=== PATIENT | female | born 1960 | race Caucasian/White ===

== ENCOUNTER 2023-04-11 11:43 | Outpatient (CLI) | payer MEDICARE, MEDICAID, SELFPAY ==
[2023-04-11 18:51] LABS: Hematocrit 45.9 % (37.0-47.0); Hemoglobin 14.8 g/dL (12.0-15.0); Mean Corpuscular HGB Conc 32.2 g/dl (32-36); Mean Corpuscular Hemoglobin 30.3 pg (26-34); Mean Corpuscular Volume 94.1 fl (80-100); Mean Platelet Volume 10.4 fl (7.4-10.4); Platelet Count Result 257 k/mm3 (150-375); Red Blood Count 4.88 M/mm3 (4.2-5.4); Red Cell Distribution Width 13.6 % (11.5-14.5); White Blood Count 10.4 K/mm3 (4.5-10.0)
[2023-04-11 19:39] LABS: Alanine Aminotransferase 41 U/L (6-35); Albumin Level 4.4 g/dL (3.5-5.1); Alkaline Phosphatase 119 U/L (38-126); Anion Gap 10 mmol/L (8-16); Aspartate Amino Transferase 57 U/L (14-36); Bilirubin,Total 0.5 mg/dL (0.2-1.3); Blood Urea Nitrogen 16 mg/dL (7-17); Calcium 9.6 mg/dL (8.4-10.2); Carbon Dioxide 23 mmol/L (22-30); Chloride 104 mmol/L (98-107); Cholesterol 268 mg/dL (0-200); Estimated Glomerular Filt Rate > 60; Glucose 121 mg/dL (65-110); HDL Direct 49 mg/dL; Potassium 4.6 mmol/L (3.4-5.0); Sodium 137 mmol/L (137-145); Triglycerides 290 mg/dL (<150)
[2023-04-11 19:49] LABS: LDL Cholesterol Direct 174 mg/dL
[2023-04-11 20:01] LABS: Vitamin D 25 Hydroxy 17.4 ng/mL
== END 2023-04-11 11:44 | disposition home or self-care (01) ==
PROVIDERS: PCP Family Medicine; Visit Provider Family Medicine
DX: J44.9 Chronic obstructive pulmonary disease, unspecified (principal); I50.9 Heart failure, unspecified; K21.9 Gastro-esophageal reflux disease without esophagitis; Z86.718 Personal history of other venous thrombosis and embolism; C80.1 Malignant (primary) neoplasm, unspecified; M19.90 Unspecified osteoarthritis, unspecified site; F41.9 Anxiety disorder, unspecified; Z79.899 Other long term (current) drug therapy
CPT/HCPCS: 36415; 80053; 80061; 82306; 82607; 84443; 85027

== ENCOUNTER 2023-05-03 12:23 | Outpatient (CLI) | payer MEDICARE, MEDICAID, SELFPAY ==
[2023-05-03 21:44] LABS: Hemoglobin A1C 6.8 % (<5.7)
== END 2023-05-03 12:24 | disposition home or self-care (01) ==
LOC: ANHBWCLAB 12:25
PROVIDERS: PCP Nurse Practitioner Adult Health; Visit Provider Family Medicine
DX: R73.9 Hyperglycemia, unspecified (principal); R73.09 Other abnormal glucose; R74.8 Abnormal levels of other serum enzymes
CPT/HCPCS: 36415; 83036

== ENCOUNTER 2023-10-17 11:01 | Outpatient (CLI) | payer MEDICARE, MEDICAID, SELFPAY ==
--- NOTE | ~2023-10-17 | XR_ITS ---
EXAM: XR lumbar spine 2-3V DATE: 10/17/2023 11:29 HISTORY: chronic middle low back pain, tend to the touch . COMPARISON: None available. FINDINGS: 5 nonrib-bearing lumbar-type vertebral bodies. Pedicles intact. Exaggerated lumbar lordosi s. 3 mm retrolisthesis at L3-4. Multilevel mild disc space narrowing and moderate marginal osteophyto sis. Moderate facet hypertrophy and sclerosis at L4-5 and L5-S1. No fracture or dislocation. IMPRESSION: Multilevel moderate degenerative disc disease. Moderate lower lumbar facet arthropathy. Reviewed, dictated and finalized at location K. IMPRESSION: Multilevel moderate degenerative disc disease. Moderate lower lumba r facet arthropathy.
--- NOTE | ~2023-10-17 | XR_ITS ---
EXAM: XR sacrum coccyx min 2V DATE: 10/17/2023 11:30 HISTORY: chronic middle low back pain, tender to the touch . COMPARISON: X-ray pelvis 11/18/2014. FINDINGS: Decreased mineralization. No fracture or dislocation. No lytic or blastic lesion. Lumbar d egenerative disc disease and facet arthropathy. The SI joints are intact. Mild degenerative change in the bilateral hips and pubic symphysis. No erosion or periosteal change. Soft tissues within normal limits. IMPRESSION: No significant osseous abnormality detected in the SI joints. Reviewed, dictated and finalized at location K.
[2023-10-17 18:58] LABS: Hematocrit 47.6 % (37.0-47.0); Mean Corpuscular HGB Conc 33.6 g/dl (32-36); Mean Corpuscular Hemoglobin 31.5 pg (26-34); Mean Corpuscular Volume 93.7 fl (80-100); Mean Platelet Volume 10.8 fl (7.4-10.4); Platelet Count Result 241 k/mm3 (150-375); Red Blood Count 5.08 M/mm3 (4.2-5.4); Red Cell Distribution Width 14.6 % (11.5-14.5); White Blood Count 10.6 K/mm3 (4.5-10.0)
[2023-10-17 19:17] LABS: Alanine Aminotransferase 20 U/L (6-35); Albumin Level 4.8 g/dL (3.5-5.1); Alkaline Phosphatase 101 U/L (38-126); Anion Gap 9 mmol/L (4-12); Aspartate Amino Transferase 54 U/L (14-36); Bilirubin,Total 0.7 mg/dL (0.2-1.3); Blood Urea Nitrogen 13 mg/dL (7-17); Calcium 9.7 mg/dL (8.4-10.2); Carbon Dioxide 30 mmol/L (22-30); Chloride 100 mmol/L (98-107); Estimated Glomerular Filt Rate 56; Glucose 104 mg/dL (65-110); Potassium 3.3 mmol/L (3.4-5.0); Sodium 139 mmol/L (137-145)
[2023-10-17 22:27] LABS: Vitamin D 25 Hydroxy 85.1 ng/mL
[2023-10-17 22:38] LABS: Hepatitis B Surface Antigen Negative (Negative)
[2023-10-17 22:44] LABS: HAV RESULT Negative (Negative); Hepatitis B Core IgM Result Negative (Negative)
[2023-10-17 22:56] LABS: Hepatitis C Virus Antibody Negative (Negative)
[2023-10-18 01:54] LABS: Hemoglobin A1C 5.2 % (<5.7)
== END 2023-10-17 11:02 | disposition home or self-care (01) ==
PROVIDERS: PCP Nurse Practitioner Family; Visit Provider Family Medicine
DX: M51.36 Other intervertebral disc degeneration, lumbar region (principal); M47.816 Spondylosis without myelopathy or radiculopathy, lumbar region; M53.3 Sacrococcygeal disorders, not elsewhere classified; R74.01 Elevation of levels of liver transaminase levels; R74.8 Abnormal levels of other serum enzymes; E11.9 Type 2 diabetes mellitus without complications; J44.1 Chronic obstructive pulmonary disease with (acute) exacerbation; I50.9 Heart failure, unspecified; M19.90 Unspecified osteoarthritis, unspecified site; F41.9 Anxiety disorder, unspecified; H53.9 Unspecified visual disturbance; E87.6 Hypokalemia; E55.9 Vitamin D deficiency, unspecified; Z79.899 Other long term (current) drug therapy
CPT/HCPCS: 36415; 72100; 72220; 80053; 80074; 82306; 83036; 85027

== ENCOUNTER 2023-12-09 12:55 | Outpatient (CLI) | payer MEDICARE, MEDICAID, SELFPAY ==
--- NOTE | ~2023-12-09 | MR_ITS ---
Procedure: MR lumbar spine wo con Ordering provider: Diana Cameron APRN History: . M51.36 - Other intervertebral disc degeneration, lumbar r... . Comparison: None. Technique: MRI thoracic spine without contrast. FINDINGS: SPINAL CORD: Normal. The cord ends at the level of L2. VERTEBRAL BODIES: Normal height and alignment. No compression fracture. Normal marrow signal. DISK SPACES: Normal. L1-L2: Normal. Bilateral facet joint disease. Thickening of the ligamenta flava. L2-L3: Normal. Thickening of the ligamenta flava. Right facet joint disease. L 3-L4:. Mild spinal canal stenosis. Thickening of the ligamenta flava. Mild diffuse disc bulge. L4-L5: Moderate spinal canal stenosis. Thickening of the ligamenta flava. Diffuse disc bulge. Bilater al facet joint disease. Narrowing of the foramina with nerve root compression more on the right side. L5-S1: Mild diffuse disc bulge. Bilateral narrowing of the foramina with root compression. PARASPINOUS SOFT TISSUES: Normal. Highly suggestive cyst in the right lobe of the liver. Ultrasound evaluation advised. IMPRESSION: No compression fracture. Multilevel disc bulges, spinal canal stenosis and intervertebral foraminal narrowing. Reviewed, dictated and finalized at location A. IMPRESSION: No compression fracture. Multilevel disc bulges, spinal canal stenosis and intervertebral foraminal narr owing.
== END 2023-12-09 12:56 | disposition home or self-care (01) ==
LOC: ANHIMG 12:56
PROVIDERS: PCP Nurse Practitioner Family; Visit Provider Nurse Practitioner Family
DX: M54.10 Radiculopathy, site unspecified (principal); M51.36 Other intervertebral disc degeneration, lumbar region; M48.061 Spinal stenosis, lumbar region without neurogenic claudication
CPT/HCPCS: 72148

== ENCOUNTER 2024-01-19 08:19 | Outpatient (CLI) | payer MEDICARE, MEDICAID, SELFPAY ==
--- NOTE | ~2024-01-19 | US_ITS ---
EXAMINATION: US soft tissue head and neck DATE: 01/19/2024 10:28 INDICATION: Left parotid mass. TECHNIQUE: Multiple grayscale and Doppler ultrasound images of the head and neck were obtained. COMPARISON: None FINDINGS: There is a 1.4 x 1.0 x 1.1 cm mixed cystic and solid hypoechoic mass in the left parotid gl and. IMPRESSION: 1. 1.4 cm mixed cystic and solid mass in the left parotid gland. The differential diagnosis includes benign mixed tumor, Warthin tumor, and less likely primary malignancy or pritesh metastatic disease. Ul trasound-guided fine needle aspiration is recommended. Reviewed, dictated and finalized at location A. IMPRESSION: 1. 1.4 cm mixed cystic and solid mass in the left parotid gland. The differenti al diagnosis includes benign mixed tumor, Warthin tumor, and less likely primar y malignancy or pritesh metastatic disease. Ultrasound-guided fine needle aspirat ion is recommended.
--- NOTE | ~2024-01-19 | US_ITS ---
COMPLETE ABDOMINAL ULTRASOUND Ordering provider: Diana Cameron APRN History: . left parotid gland mass . Comparison: None. FINDINGS: LIVER: Normal size and echotexture. No focal hepatic lesions or perihepatic fluid collections are hazel ntified. Cyst in the right lobe of the liver measuring 2.3 x 2.6 x 2 cm. Portal vein flow is normal. GALLBLADDER: No evidence for stones, sludge, gallbladder wall thickening or pericholecystic fluid col lections. Wall thickness is 0.2 cm. A negative sonographic Saldana's sign was noted. BILIARY DUCTS: No evidence for intra or extrahepatic biliary dilation. Common bile duct measures 9 mm in diameter which is within normal limits. PANCREAS: Normal echotexture and size. . UPPER ABDOMINAL AORTA: Normal in caliber. Proximal aorta measures 1.6 cm. IVC: Patent. FREE FLUID: None. IMPRESSION: 1. Cyst in the right lobe of the liver. Other appearances are unremarkable. Reviewed, dictated and finalized at location A.
== END 2024-01-19 08:20 | disposition home or self-care (01) ==
LOC: ANHIMG 08:21
PROVIDERS: PCP Nurse Practitioner Family; Visit Provider Nurse Practitioner Family
DX: K76.89 Other specified diseases of liver (principal); K11.8 Other diseases of salivary glands
CPT/HCPCS: 76536; 76705

== ENCOUNTER 2024-03-20 15:22 | Outpatient (CLI) | payer MEDICARE, MEDICAID, SELFPAY ==
--- NOTE | ~2024-03-20 | XR_ITS ---
EXAMINATION: XR sacrum coccyx min 2V DATE: 03/20/2024 15:51 INDICATION: Low back pain. TECHNIQUE: 3 views of the sacrum and coccyx were obtained. COMPARISON: Sacrum and coccyx radiograph 10/17/2023 FINDINGS: There is lumbar dextrocurvature and mild spondylosis. No fracture. There is mild osteoarthr itis of the sacroiliac joints. IMPRESSION: 1. No fracture. Reviewed, dictated and finalized at location A. MACIST AIDE IMPRESSION: 1. No fracture.
== END 2024-03-20 15:23 | disposition home or self-care (01) ==
PROVIDERS: PCP Family Medicine; Visit Provider Family Medicine
DX: S39.92XA Unspecified injury of lower back, initial encounter (principal); X58.XXXA Exposure to other specified factors, initial encounter; M54.10 Radiculopathy, site unspecified; M53.3 Sacrococcygeal disorders, not elsewhere classified
CPT/HCPCS: 72220

== ENCOUNTER 2024-10-19 10:22 | Outpatient (CLI) | payer MEDICARE, MEDICAID, SELFPAY ==
[2024-10-19 11:09] LABS: Basophils Percent Auto 0.3 % (0.2-1.2); Eosinophils Percent Auto 0.4 % (0-4.4); Hematocrit 39.9 % (37.0-47.0); Immature Granulocyte Absolute 0.06 K/mm3 (0.00-0.031); Immature Granulocyte Percent A 0.6 % (0-0.5); Lymphocytes Absolute Auto 1.73 K/mm3 (0.9-3.2); Lymphocytes Percent Auto 16.8 % (18.3-44.2); Mean Corpuscular HGB Conc 32.6 g/dl (32-36); Mean Corpuscular Hemoglobin 31.3 pg (26-34); Mean Corpuscular Volume 95.9 fl (80-100); Mean Platelet Volume 9.9 fl (7.4-10.4); Monocytes Absolute Auto 0.3 K/mm3 (0.1-0.6); Monocytes Percent Auto 2.8 % (2.6-8.5); Neutrophils Absolute Auto 8.1 K/mm3 (1.3-6.7); Neutrophils Percent Auto 79.1 % (45.5-73.1); Platelet Count Result 238 k/mm3 (150-375); Red Blood Count 4.16 M/mm3 (4.2-5.4); Red Cell Distribution Width 13.2 % (11.5-14.5); White Blood Count 10.3 K/mm3 (4.5-10.0)
[2024-10-19 11:34] LABS: Add Urine Microscopic? YES; Appearance Urine Clear (Clear); Bacteria Urine None Seen /hpf; Bilirubin Urine Negative (Negative); Blood Urine Negative (Negative); Color Urine Yellow (Yellow); Glucose Urine UA Negative (Negative); Ketones Urine Negative (Negative); Leukocyte Esterase Ur 2+ LEU/UL (Negative); Need Manual Microscopic Reviewed; Nitrate Urine Negative (Negative); Non Pathogenic Casts 0-2; Protein Urine Negative (Negative); RBC Urine 0-2 /hpf (0-2); Specific Grav Ur 1.005 (1.001-1.035); Squamous Epithelial Cell Urine None Seen /hpf (Few); Urobilinogen Urine 0.2 mg/dL (<2.0); WBC Urine 0-5 /hpf (0-3)
[2024-10-19 11:37] LABS: Hemoglobin A1C 5.2 % (<5.7)
[2024-10-19 11:40] LABS: Iron 57 ug/dL (37-170)
[2024-10-19 11:49] LABS: Alanine Aminotransferase 19 U/L (6-35); Albumin Level 4.1 g/dL (3.5-5.1); Alkaline Phosphatase 88 U/L (38-126); Anion Gap 9 mmol/L (4-12); Aspartate Amino Transferase 38 U/L (14-36); Bilirubin,Total 0.5 mg/dL (0.2-1.3); Blood Urea Nitrogen 15 mg/dL (7-17); Calcium 9.5 mg/dL (8.4-10.2); Carbon Dioxide 27 mmol/L (22-30); Chloride 104 mmol/L (98-107); Cholesterol 148 mg/dL (0-200); Estimated Glomerular Filt Rate > 60; Glucose 91 mg/dL (65-110); HDL Direct 62 mg/dL; Potassium 4.6 mmol/L (3.4-5.0); Sodium 140 mmol/L (137-145); Total Protein 7.1 g/dL (6.3-8.2); Triglycerides 102 mg/dL (<150)
[2024-10-19 11:51] LABS: Percent Iron Saturation 18 % (20-50)
[2024-10-19 12:00] LABS: LDL Cholesterol Direct 58 mg/dL
== END 2024-10-19 10:23 | disposition home or self-care (01) ==
LOC: ANHLAB 10:22
PROVIDERS: PCP Family Medicine; Visit Provider Family Medicine
DX: E11.9 Type 2 diabetes mellitus without complications (principal); I95.1 Orthostatic hypotension; K21.9 Gastro-esophageal reflux disease without esophagitis; J44.9 Chronic obstructive pulmonary disease, unspecified; G47.33 Obstructive sleep apnea (adult) (pediatric); R42 Dizziness and giddiness; R25.2 Cramp and spasm; N39.0 Urinary tract infection, site not specified
CPT/HCPCS: 36415; 80053; 80061; 81001; 82607; 83036; 83540; 83550; 85025; 87086

== ENCOUNTER 2025-02-04 13:59 | Emergency (ER) | payer MEDICARE, MEDICAID, SELFPAY ==
[2025-02-04] VITALS (18 sets, daily range): BP systolic 76–109; BP diastolic 50–94; PULSE 70–79; RESP 13–24; TEMP 36.4; O2SAT 96–100
--- NOTE | 2025-02-04 14:20 | ECG_ITS ---
Test Date: 2025-02-04 14:21:57 Measurements Intervals [place] Rate: 78 P: 71 MN: 182 QRS: 43 QRSD: 73 T: 48 QT: 376 QTc: 428 Interpretive Statements SINUS RHYTHM WITH OCCASIONAL ECTOPIC PREMATURE COMPLEXES LOW QRS VOLTAGE IN PRECORDIAL LEADS CANNOT R/O SEPTAL INFARCT, AGE INDETERMINATE BORDERLINE ST-T WAVE ABNORMALITY- DIFFUSE LEADS BASELINE ARTIFACT- I, II, III, AVR, AVL, AVF, V1-V6 ABNORMAL ECG No previous ECG available for comparison Electronically Signed On 02-04-2025 14:42:57 CDT by Laz Ricci D.O.
--- NOTE | 2025-02-04 14:20 | ED.GENADULT ---
HPI - General Adult General Chief complaint: Recheck/Abnormal Lab/Rx <Roge Urias APRN - Last Filed: 02/04/25 14:21> Stated complaint: Low BP -sent by Dr Avalos <Roge Urias APRN - Last Filed: 02/04/25 14:21> Time Seen by Provider: 02/04/25 16:22 <Roge Urias APRN - Last Filed: 02/04/25 14:21> Focused HPI: 65-year-old female presents the ER from PCPs office for further hypertension. Patient has been complaining of low blood pressure for several weeks. States her PCP started her on midodrine with 2 weeks ago. Patient reports dizziness, lightheadedness when standing up. GENERAL: Well-appearing, well-nourished, and in no acute distress. HEAD: Normocephalic, atraumatic. CHEST: Clear to auscultation. No respiratory distress. HEART: Regular rate and rhythm. NEURO: Alert and oriented x3. Patient screened in triage and initial orders placed. Additional care and disposition to be based upon diagnostic testing and treatment. <Roge Urias APRN - Last Filed: 02/04/25 14:21> History of Present Illness HPI narrative: 70-year-old with a history of diabetes, orthostatic hypotension, COPD , GERD was sent from Doctor 's office with a complaints of having low blood pressure , she states this has been on going for quite sometime , she gets extremely dizzy soon after she gets of sitting position. Denies any headache , CP , NO N/V/D . She has been taking Midodrine three times a days , is scheduled to see Cardilogist in 3 days. <Luke Call MD - Last Filed: 02/04/25 19:27> Onset (ago): unknown <Luke Call MD - Last Filed: 02/04/25 19:27> Severity: moderate <Luke Call MD - Last Filed: 02/04/25 19:27> Relieving factors: none <Luke Call MD - Last Filed: 02/04/25 19:27> Exacerbating factors: none <Luke Call MD - Last Filed: 02/04/25 19:27> Associated symptoms: denies other symptoms <Luke Call MD - Last Filed: 02/04/25 19:27> Related Data Home medications: Home Medications ?Medication ?Instructions ?Recorded ?Confirmed ?Last Taken ?Type Albuterol .Route 04/11/23 06/01/24 Unknown History neomycin 3.5 mg/g-polymyxin B RIGHT EYE 12/13/23 06/01/24 Unknown History 10,000 unit/g-dexameth 0.1 % eye oint <Roge Urias APRN - Last Filed: 02/04/25 14:21> Allergies/adverse reactions: Allergies Allergy/AdvReac Type Severity Reaction Status Date / Time No Known Allergies Allergy Unknown Verified 02/04/25 14:01 <Roge Urias APRN - Last Filed: 02/04/25 14:21> Review of Systems Review of Systems: All systems reviewed & are unremarkable except as noted in HPI and below <Luke Call MD - Last Filed: 02/04/25 19:27> Constitutional: Constitutional: Reports no additional constitutional complaints <Luke Call MD - Last Filed: 02/04/25 19:27> Eyes: Eyes: Reports no additional eye complaints <Luke Call MD - Last Filed: 02/04/25 19:27> ENT: Reports system reviewed and no additional complaints, except as documented <Luke Call MD - Last Filed: 02/04/25 19:27> Cardiovascular: Cardiovascular: Reports no additional cardiovascular complaints <Luke Call MD - Last Filed: 02/04/25 19:27> Respiratory: Respiratory: Reports no additional respiratory complaints <Luke Call MD - Last Filed: 02/04/25 19:27> Gastrointestinal: Gastrointestinal: Reports no additional gastrointestinal complaints <Luke Call MD - Last Filed: 02/04/25 19:27> PMFSH Past Medical History Medical History: Medical History Chronic GERD COPD (chronic obstructive pulmonary disease) Congestive heart failure Arthritis Anxiety <Roge Urias APRN - Last Filed: 02/04/25 14:21> Family History Family History: Family History Father Cancer Mother Cancer Sibling Cancer Diabetes mellitus Depression Cerebrovascular accident Grandparent Heart disease Cancer Diabetes mellitus Other Family history of heart disease in male family member before age 55 Family history of malignant neoplasm Family history of type 2 diabetes mellitus <Roge Urias APRN - Last Filed: 02/04/25 14:21> Social History Social History: Social History Smoking packs per day: 1 Smoking cigarettes per day: 20.0 Smoking status: Heavy tobacco smoker Alcohol intake: never Substance use: never Lack of Transportation: No Lack of Food: Sometimes True Current Housing: I Have Housing Concerned About Future Housing: No Difficulty Paying Gas/Electric Bills: No Difficulty Paying for Meds: No Currently Unemployed: No Education: High School Diploma/GED Difficulty w/ Childcare or Family Care: No Living arrangements: with family Gender identity (if verbalized by the patient): Female <Roge Urias, GRID CASTING MACHINE OPERATOR HELPER - Last Filed: 02/04/25 14:21> Exam Narrative: GENERAL: Well-appearing, well-nourished, and in no acute distress. HEAD: Normocephalic, atraumatic. EYES: PERRLA and EOMI. ENT: Nares clear, no rhinorrhea or epistaxis. Mucous membranes moist. NECK: Supple. CHEST: Clear to auscultation. No respiratory distress. HEART: Regular rate and rhythm. No murmur heard. Normal peripheral pulses. ABDOMEN: Soft, nontender, nondistended, normal active bowel sounds. EXTREMITIES: Normal range of motion. No edema. SKIN: Warm, dry, no rash. NEURO: No focal deficits. Alert and oriented x3. PSYCH: Normal mood and affect. <Luke Call MD - Last Filed: 02/04/25 19:27> Course Course Emergency Course: pt is asymptomatic at this time m, she did get IV fluids , i did inform her about the lab anwork , i recommended her continue home meds, follow with her PMD . <Luke Call MD - Last Filed: 02/04/25 19:27> Vital Signs Vital signs: Vital Signs Temperature 36.4 C L 02/04/25 14:15 Pulse Rate 78 02/04/25 14:15 Respiratory Rate 15 02/04/25 14:15 Blood Pressure 91/50 L 02/04/25 14:15 Pulse Oximetry 98 02/04/25 14:15 Oxygen Delivery Room Air 02/04/25 14:15 Temperature 36.4 C L 02/04/25 14:15 Pulse Rate 77 02/04/25 18:36 Respiratory Rate 20 02/04/25 18:36 Blood Pressure 100/64 02/04/25 18:36 Pulse Oximetry 96 02/04/25 18:16 Oxygen Delivery Room Air 02/04/25 14:15 <Roge Urias, GRID CASTING MACHINE OPERATOR HELPER - Last Filed: 02/04/25 14:21> Vital Signs Temperature 36.4 C L 02/04/25 14:15 Pulse Rate 78 02/04/25 14:15 Respiratory Rate 15 02/04/25 14:15 Blood Pressure 91/50 L 02/04/25 14:15 Pulse Oximetry 98 02/04/25 14:15 Oxygen Delivery Room Air 02/04/25 14:15 Temperature 36.4 C L 02/04/25 14:15 Pulse Rate 77 02/04/25 18:36 Respiratory Rate 20 02/04/25 18:36 Blood Pressure 100/64 02/04/25 18:36 Pulse Oximetry 96 02/04/25 18:16 Oxygen Delivery Room Air 02/04/25 14:15 <Luke Call MD - Last Filed: 02/04/25 19:27> Medical Decision Making Vital Signs Vital Signs: Vital Signs Temperature 36.4 C L 02/04/25 14:15 Pulse Rate 78 02/04/25 14:15 Respiratory Rate 15 02/04/25 14:15 Blood Pressure 91/50 L 02/04/25 14:15 Pulse Oximetry 98 02/04/25 14:15 Oxygen Delivery Room Air 02/04/25 14:15 Temperature 36.4 C L 02/04/25 14:15 Pulse Rate 77 02/04/25 18:36 Respiratory Rate 20 02/04/25 18:36 Blood Pressure 100/64 02/04/25 18:36 Pulse Oximetry 96 02/04/25 18:16 Oxygen Delivery Room Air 02/04/25 14:15 <Roge Urias, GRID CASTING MACHINE OPERATOR HELPER - Last Filed: 02/04/25 14:21> Vital Signs Temperature 36.4 C L 02/04/25 14:15 Pulse Rate 78 02/04/25 14:15 Respiratory Rate 15 02/04/25 14:15 Blood Pressure 91/50 L 02/04/25 14:15 Pulse Oximetry 98 02/04/25 14:15 Oxygen Delivery Room Air 02/04/25 14:15 Temperature 36.4 C L 02/04/25 14:15 Pulse Rate 77 02/04/25 18:36 Respiratory Rate 20 02/04/25 18:36 Blood Pressure 100/64 02/04/25 18:36 Pulse Oximetry 96 02/04/25 18:16 Oxygen Delivery Room Air 02/04/25 14:15 <Luke Call MD - Last Filed: 02/04/25 19:27> Lab Data Lab results reviewed: Yes I reviewed the patient's lab results. <Luke aCll MD - Last Filed: 02/04/25 19:27> Result diagrams: 02/04/25 14:26 02/04/25 14:26 <Roge Urias APRN - Last Filed: 02/04/25 14:21> Labs: Lab Results 02/04/25 02/04/25 Range/Units 14:26 16:10 WBC 10.6 H (4.5-10.0) K/mm3 RBC 4.26 (4.2-5.4) M/mm3 Hgb 13.4 (12.0-15.0) g/dL Hct 39.0 (37.0-47.0) % MCV 91.5 (80-100) fl MCH 31.5 (26-34) pg MCHC 34.4 (32-36) g/dl RDW 13.1 (11.5-14.5) % Plt Count 208 (150-375) k/mm3 MPV 10.1 (7.4-10.4) fl Immature Gran % (Auto) 0.5 (0-0.5) % Neut % (Auto) 57.9 (45.5-73.1) % Lymph % (Auto) 36.0 (18.3-44.2) % [place] % (Auto) 4.5 (2.6-8.5) % Eos % (Auto) 0.9 (0-4.4) % Baso % (Auto) 0.2 (0.2-1.2) % Lymph # (Auto) 3.80 H (0.9-3.2) K/mm3 [place] # (Auto) 0.5 (0.1-0.6) K/mm3 Eos # (Auto) 0.1 (0-0.3) K/mm3 Baso # (Auto) 0.0 (0.0-0.1) K/mm3 Abs Immat Gran (auto) 0.05 H (0.00-0.031) K/mm3 Absolute Neuts (auto) 6.1 (1.3-6.7) K/mm3 Absolute Nucleated RBC 0.000 (0.0-0.012) K/mm3 Nucleated RBC % 0.0 (0.0-0.2) % Sodium 138 (137-145) mmol/L Potassium 3.5 (3.4-5.0) mmol/L Chloride 100 (98-107) mmol/L Carbon Dioxide 31 H (22-30) mmol/L Anion Gap 7 (4-12) mmol/L BUN 27 H D (7-17) mg/dL Creatinine 1.10 H (0.7-1.0) mg/dL Estim Creat Clear Calc 38 ml/min Estimated GFR 50 L (59 - ) Glucose 87 (65-110) mg/dL Calcium 9.0 (8.4-10.2) mg/dL Magnesium 1.8 (1.6-2.3) mg/dL Total Bilirubin 0.2 (0.2-1.3) mg/dL AST 51 H (14-36) U/L ALT 24 (6-35) U/L Alkaline Phosphatase 80 (38-126) U/L Troponin I < 0.012 (0.000-0.034) ng/mL Total Protein 7.6 (6.3-8.2) g/dL Albumin 4.3 (3.5-5.1) g/dL TSH 2.150 (0.465-4.680) uIU/mL Urine Color Yellow (Yellow) Urine Appearance Clear (Clear) Urine pH 5.5 (5.0-9.0) Ur Specific [place] 1.013 (1.001-1.035) Urine Protein Negative (Negative) mg/dL Urine Glucose (UA) Negative (Negative) mg/dL Urine Ketones Negative (Negative) mg/dL Ur Blood (Man) Negative (Negative) Urine Nitrate Negative (Negative) Urine Bilirubin Negative (Negative) Urine Urobilinogen 0.2 (<2.0) mg/dL Leukocyte Esterase Rfl 2+ H (Negative) EPI/UL Urine RBC 0-2 (0-2) /hpf Urine WBC 11-20 H (0-3) /hpf Ur Squamous Epith Cells Occasional (Few) /hpf Urine Bacteria None seen /hpf Urine Casts 0-2 <Roge Urias, GRID CASTING MACHINE OPERATOR HELPER - Last Filed: 02/04/25 14:21> Lab Results 02/04/25 02/04/25 Range/Units 14:26 16:10 WBC 10.6 H (4.5-10.0) K/mm3 RBC 4.26 (4.2-5.4) M/mm3 Hgb 13.4 (12.0-15.0) g/dL Hct 39.0 (37.0-47.0) % MCV 91.5 (80-100) fl MCH 31.5 (26-34) pg MCHC 34.4 (32-36) g/dl RDW 13.1 (11.5-14.5) % Plt Count 208 (150-375) k/mm3 MPV 10.1 (7.4-10.4) fl Immature Gran % (Auto) 0.5 (0-0.5) % Neut % (Auto) 57.9 (45.5-73.1) % Lymph % (Auto) 36.0 (18.3-44.2) % [place] % (Auto) 4.5 (2.6-8.5) % Eos % (Auto) 0.9 (0-4.4) % Baso % (Auto) 0.2 (0.2-1.2) % Lymph # (Auto) 3.80 H (0.9-3.2) K/mm3 [place] # (Auto) 0.5 (0.1-0.6) K/mm3 Eos # (Auto) 0.1 (0-0.3) K/mm3 Baso # (Auto) 0.0 (0.0-0.1) K/mm3 Abs Immat Gran (auto) 0.05 H (0.00-0.031) K/mm3 Absolute Neuts (auto) 6.1 (1.3-6.7) K/mm3 Absolute Nucleated RBC 0.000 (0.0-0.012) K/mm3 Nucleated RBC % 0.0 (0.0-0.2) % Sodium 138 (137-145) mmol/L Potassium 3.5 (3.4-5.0) mmol/L Chloride 100 (98-107) mmol/L Carbon Dioxide 31 H (22-30) mmol/L Anion Gap 7 (4-12) mmol/L BUN 27 H D (7-17) mg/dL Creatinine 1.10 H (0.7-1.0) mg/dL Estim Creat Clear Calc 38 ml/min Estimated GFR 50 L (59 - ) Glucose 87 (65-110) mg/dL Calcium 9.0 (8.4-10.2) mg/dL Magnesium 1.8 (1.6-2.3) mg/dL Total Bilirubin 0.2 (0.2-1.3) mg/dL AST 51 H (14-36) U/L ALT 24 (6-35) U/L Alkaline Phosphatase 80 (38-126) U/L Troponin I < 0.012 (0.000-0.034) ng/mL Total Protein 7.6 (6.3-8.2) g/dL Albumin 4.3 (3.5-5.1) g/dL TSH 2.150 (0.465-4.680) uIU/mL Urine Color Yellow (Yellow) Urine Appearance Clear (Clear) Urine pH 5.5 (5.0-9.0) Ur Specific [place] 1.013 (1.001-1.035) Urine Protein Negative (Negative) mg/dL Urine Glucose (UA) Negative (Negative) mg/dL Urine Ketones Negative (Negative) mg/dL Ur Blood (Man) Negative (Negative) Urine Nitrate Negative (Negative) Urine Bilirubin Negative (Negative) Urine Urobilinogen 0.2 (<2.0) mg/dL Leukocyte Esterase Rfl 2+ H (Negative) EPI/UL Urine RBC 0-2 (0-2) /hpf Urine WBC 11-20 H (0-3) /hpf Ur Squamous Epith Cells Occasional (Few) /hpf Urine Bacteria None seen /hpf Urine Casts 0-2 <Luke Kanumuri, MD - Last Filed: 02/04/25 19:27> Discharge Plan Discharge Clinical Impression: Orthostatic hypotension <Roge Urias APRN - Last Filed: 02/04/25 14:21> Patient Disposition: Home <Roge Urias APRN - Last Filed: 02/04/25 14:21> Condition: Stable <Roge Urias APRN - Last Filed: 02/04/25 14:21> Instructions: Hypotension (ED) <Roge Urias APRN - Last Filed: 02/04/25 14:21> Additional Instructions: continue home medications , follow with your sound mixer as scheduled . <Roge Urias APRN - Last Filed: 02/04/25 14:21> Patient Language: Divehi <Roge Urias APRN - Last Filed: 02/04/25 14:21> Prescriptions: No Action neomycin-polymyxin B-dexameth 3.5 mg/g-10,000 unit/g-0.1 % ointment RIGHT EYE Albuterol .Route Rx Instructions: prn albuterol sulfate 2.5 mg /3 mL (0.083 %) solution for nebulization 1.25 mg inhalation Q4H PRN (Reason: bronchospasm) Qty: 180 3RF (DME) nebulizers [Compact Compressor Nebulizer] Misc See Rx Instructions .Route Qty: 1 0RF Rx Instructions: As directed up to 4 times a day prn midodrine 5 mg tablet 5 mg PO TID PRN (Reason: hypotension) Qty: 90 0RF Rx Instructions: do not give last dose of day after 6PM or within 4 hrs of bedtime budesonide-formoterol [Symbicort] 160-4.5 mcg/actuation HFA aerosol inhaler 2 puff inhalation Q12H Qty: 10.2 3RF cholecalciferol (vitamin D3) 1,250 mcg (50,000 unit) capsule 1,250 mcg PO WEEKLY Qty: 12 1RF ezetimibe 10 mg tablet 10 mg PO DAILY Qty: 90 1RF Mounjaro 7.5 mg/0.5 mL pen injector 7.5 mg subcut WEEKLY Qty: 6 3RF sertraline 50 mg tablet 50 mg PO DAILY Qty: 90 1RF Rx Instructions: taking with 100mg tablet doxycycline hyclate 20 mg tablet 20 mg PO Q12H Qty: 180 1RF metformin 500 mg tablet See Rx Instructions .ROUTE .COMPLEX Qty: 90 0RF Dose Instruction: TAKE 1 TABLET BY MOUTH DAILY Rx Instructions: TAKE 1 TABLET BY MOUTH DAILY omeprazole 40 mg capsule,delayed release(DR/EC) 40 mg PO DAILY Qty: 90 1RF sertraline 100 mg tablet 100 mg PO DAILY Qty: 90 1RF buspirone 15 mg tablet 15 mg PO TID Qty: 270 1RF (DME) FreeStyle Elvi 3 Plus Sensor Device See Rx Instructions .Route Qty: 6 1RF Rx Instructions: use one sensor every 15 days doxepin 25 mg capsule See Rx Instructions .ROUTE .COMPLEX Qty: 90 1RF Dose Instruction: TAKE 1 CAPSULE BY MOUTH EVERY DAY AT BEDTIME Rx Instructions: TAKE 1 CAPSULE BY MOUTH EVERY DAY AT BEDTIME potassium chloride 10 mEq tablet extended release See Rx Instructions .ROUTE .COMPLEX Qty: 90 0RF Dose Instruction: TAKE 1 TABLET BY MOUTH DAILY Rx Instructions: TAKE 1 TABLET BY MOUTH DAILY diazepam 10 mg tablet 10 mg PO QHS PRN (Reason: anxiety) Qty: 30 0RF Xarelto 20 mg tablet See Rx Instructions .ROUTE .COMPLEX Qty: 90 0RF Dose Instruction: TAKE 1 TABLET BY MOUTH DAILY WITH EVENING MEAL Rx Instructions: TAKE 1 TABLET BY MOUTH DAILY WITH EVENING MEAL Mounjaro 10 mg/0.5 mL pen injector 10 mg subcut WEEKLY Qty: 2 0RF rosuvastatin 20 mg tablet 20 mg PO DAILY Qty: 90 1RF <Roge Urias APRN - Last Filed: 02/04/25 14:21> Follow-up/Referrals: Troy Avalos MD [Primary Care Provider, Family Practice] <Roge Urias APRN - Last Filed: 02/04/25 14:21> Time of Disposition: 18:32 <Roge Urias APRN - Last Filed: 02/04/25 14:21> 18:32 <Luke Call MD - Last Filed: 02/04/25 19:27>
[2025-02-04 14:34] LABS: Hematocrit 39.0 % (37.0-47.0); Hemoglobin 13.4 g/dL (12.0-15.0); Immature Granulocyte Percent A 0.5 % (0-0.5); Lymphocytes Absolute Auto 3.80 K/mm3 (0.9-3.2); Mean Corpuscular HGB Conc 34.4 g/dl (32-36); Mean Corpuscular Hemoglobin 31.5 pg (26-34); Mean Corpuscular Volume 91.5 fl (80-100); Nucleated Red Blood Cells Absolute Auto 0.000 K/mm3 (0.0-0.012); Nucleated Red Blood Cells Perc 0.0 % (0.0-0.2); Platelet Count Result 208 k/mm3 (150-375); Red Blood Count 4.26 M/mm3 (4.2-5.4); White Blood Count 10.6 K/mm3 (4.5-10.0)
[2025-02-04 14:49] LABS: Alanine Aminotransferase 24 U/L (6-35); Albumin Level 4.3 g/dL (3.5-5.1); Alkaline Phosphatase 80 U/L (38-126); Anion Gap 7 mmol/L (4-12); Aspartate Amino Transferase 51 U/L (14-36); Bilirubin,Total 0.2 mg/dL (0.2-1.3); Blood Urea Nitrogen 27 mg/dL (7-17); Calcium 9.0 mg/dL (8.4-10.2); Carbon Dioxide 31 mmol/L (22-30); Chloride 100 mmol/L (98-107); Estimated CRCL calculation 38 ml/min; Estimated Glomerular Filt Rate 50; Glucose 87 mg/dL (65-110); Magnesium 1.8 mg/dL (1.6-2.3); Potassium 3.5 mmol/L (3.4-5.0); Sodium 138 mmol/L (137-145); Total Protein 7.6 g/dL (6.3-8.2)
--- OUTSIDE RECORDS SUMMARY | 2025-02-04 14:52 | XMS_ITS | Encounter Summary ---
Author Organization [facility] Address [facility] [place] [address] Care Team Providers Care Joiner Apprentice Name Role Phone Stu Shepherd MD Unavailable [phone] Kusum Dinero RN Unavailable [phone] Troy Avalos MD Primary Care Provider [phone] Encounter Details Date Type Department Care Team (Late st Contact Info) Description 04/21/2023 [employer] Message Enc [facility] Group Family & Internal Medicine [facility] [address] [place] [address] [place] [address] [place] [address] Leaving Social History Tobacco Use Types Packs/Day Years Used Date Smoking Tobacco: Every Day Cigarettes 1 43.8 Started: 1979 Smokeless Tobacco: Never Comments:not ready to quit; pcp to educate Alcohol Use Standard Drinks/Week Comments Not Currently 0 (1 standard drink = 0.6 oz pur e alcohol) very rare AUDIT-C Answer Date Recorded Q1: How often do you have a drink containing alc ohol? Monthly or less 11/09/2019 Average Number of Drinks Not on file 020 Frequency of Binge Drinking Not on file 10/30 Overall Financial Resource Strain (CARDIA) Todde r Date Recorded How hard is it for you to pa y for the very basics like food, housing, medical care, and heating? Somewhat hard 06/15/2022 PHQ-2 Answer Date Recorded Patient Health Questionnaire-2 Score 0 08/24/2022 Hunger Vital Sign Answer Date Recorded Within the past 12 months, y ou worried that your food would run out before you got the money to buy more. Never true 06/15/19 23 Within the past 12 months, t he food you bought just didn't last and you didn't have money to get more. Never true 06/15/2022 PRAPARE - Transportation Answer Date Re corded In the past 12 months, has l ack of transportation kept you from medical appointments or from getting medications? Yes 06/02 In the past 12 months, has l ack of transportation kept you from meetings, work, or from getting things needed for daily living? No 06/15/2022 Housing Stability Vital Sign Answer Tariq e Recorded In the last 12 months, was t here a time when you were not able to pay the mortgage or rent on time? No 06/15/2022 In the last 12 months, how many places have you lived? 1 06/15/2022 In the last 12 months, was t here a time when you did not have a steady place to sleep or slept in a residential (including now)? No 06/15/2022 Education Answer Date Recorded What is the highest level of school you have completed or the highest degree you have received? GED or equivalent 06/2018 Comments No Sex and Gender Information Value Date Recorded Sex Assigned at Female 10/02/2018 7:43 AM CDT Legal Sex Female 10:36 PM CDT Gender Identity Female 10/02/2018 7:43 AM CDT Sexual Orientation Straight 10/02/2018 7: 43 AM CDT Occupation Industry Job Start Date Job End Date unemployed Not on file Not on file Not on file documented as of this encounter Plan of Treatment Upcoming Encounters Date Type Department Care Team (Late st Contact Info) Description 02/07/2025 11:00 AM CDT Office Visit [facility] [facility], [facility] [address] [place], [place] [id number] Jose Correia MD 3 [facility] [address] [place], [place] [id number] documented as of this encounter Goals Goal Patient Goal Type Associated Problems Recent Progress Patient-Stated? Author Reduce Sodium Intake Diet On track(2022 1:41 PM CDT) Kusum Ferrell RN Note: 03/09/22: Patient continues to watch sodium intake of no more than 2,000 mg sodium diet daily. Establish Regular Follow-Ups with PCP / Cardiology General On track(2022 3:11 PM JOURNEYMAN LEVEL ACOUSTIC ANALYST) Kusum Ferrell RN Note: 10/06/22: confirmed appointment with on 11/23/22. 08/17/22: Patient will f/u with on 08/24/22 and Blender Laborer the last week of July. She did not have date available during call. Establish Plan for Symptom Monitoring- HF General On track(2022 3:11 PM JOURNEYMAN LEVEL ACOUSTIC ANALYST) Kusum Ferrell RN Note: Patient will recognize symptoms of CHF and report to physician should they occur. Daily weight. Report weight gain of > 3 lbs overnight or > 5 lbs in a week Maintain 64 oz fluid restriction Call physician if you experience worsening shortness of breath, edema, fatigue, or cough 08/17/22: Scheduled to see Blender Laborer at the end of July. Patient is on fluid restriction and doesn't go over 64 ounces. SOB with exertion and she plans on discussing with Blender Laborer at upcoming appointment since this has been going on for a while now. See note for details. Establish Plan for Symptom Monitoring-HTN General On track(2022 3:11 PM JOURNEYMAN LEVEL ACOUSTIC ANALYST) Kusum Ferrell RN Note: Patient will recognize symptoms of hypertension and report to physician should they occur Notify your physician for symptoms of: Severe headache Shortness of breath Nosebleed Severe anxiety Feeling of pulsations in the neck or head Take your medications as prescribed. Follow up with your provider as scheduled. Take your blood pressure at least several times a week if able. 08/17/22: Patient's B/P is stable and no issues to report at this time. Quit smoking Lifestyle Not on track(2022 3:11 PM JOURNEYMAN LEVEL ACOUSTIC ANALYST) No Kusum Dinero RN Note: 10/06/22: Patient not ready at this time. 09/08/22: Patient not ready at this time. 03/09/22: Educated on smoking cessation. Patient declines at this time. Stated she is not ready. Manage anxiety Lifestyle On track(2022 3:11 PM JOURNEYMAN LEVEL ACOUSTIC ANALYST) No Kusum Dinero, RN Note: 10/06/22: Patient taking medication as prescribed. Sets an alarm but sometimes forgets to take lunch time dose. See note for details. documented as of this encounter Visit Diagnoses Not on filedocumented in this encounter Additional Health Concerns Assessment Noted Time PHQ-9 Depression Total Score: 0 07/17/19 22 1:33 PM CDT documented as of this encounter Care Teams Joiner Apprentice Relationship Specialty Start Date End Date Troy Avalos MD [address] [place] [address] PCP - General FAMILY PRACTICE 12/31/24 Stu Shepherd MD [facility] [address] [place], [place] [id number] [place] Blender Laborer CARDIOVASCULAR DISEASE 11/25/16 Kusum Dinero RN [address] [place] [address] Inspector Brake Lining (Ambulatory) REGISTERED NURSE 03/06/19 05/11/23 documented as of this encounter
--- OUTSIDE RECORDS SUMMARY | 2025-02-04 14:52 | XMS_ITS | Encounter Summary ---
Author Organization [facility] Address [facility] [place] [address] Care Team Providers Care Dusting And Brushing Machine Operator Name Role Phone Renato Dale MD Primary Care Provider [phone] Stu Shepherd MD Unavailable [phone] Kusum Dinero RN Unavailable [phone] Troy Avalos MD Primary Care Provider [phone] Encounter Details Date Type Department Care Team (Late st Contact Info) Description 03/11/2023 [employer] Message Enc [facility] Medical Group Family & Internal Medicine [facility] [address] [place] [address] [place] [address] [place] [address] Cold medicine Social History Tobacco Use Types Packs/Day Years [...] place to sleep or slept in a detention (including now)? No 06/15/2022 Education Answer Date [...] 02/07/2025 11:00 AM CDT Office Visit [facility] [facility], [facility] [address] [place] [address] Jose Correia MD 3 [facility] [address] [place] [address] documented as of this encounter Goals Goal Patient Goal Type Associated Problems Recent Progress Patient-Stated? Author Reduce Sodium Intake Diet On track(2022 1:41 PM CDT) Kusum Ferrell RN Note: 03/09/22: Patient continues to watch sodium intake of no more than 2,000 mg sodium diet daily. Establish Regular Follow-Ups with PCP / Cardiology General On track(2022 3:11 PM CALCINER FEEDER) Kusum Ferrell, RN Note: 10/06/22: confirmed appointment with on 11/23/22. 08/17/22: Patient will f/u with on 08/24/22 and Embedded Processor the last week of July. She did not have date available during call. Establish Plan for Symptom Monitoring- HF General On track(2022 3:11 PM CALCINER FEEDER) Kusum Ferrell, RN Note: Patient will recognize symptoms of CHF and report to physician should they occur. Daily weight. Report weight gain of > 3 lbs overnight or > 5 lbs in a week Maintain 64 oz fluid restriction Call physician if you experience worsening shortness of breath, edema, fatigue, or cough 08/17/22: Scheduled to see Embedded Processor at the end of July. Patient is on fluid restriction and doesn't go over 64 ounces. SOB with exertion and she plans on discussing with Embedded Processor at upcoming appointment since this has been going on for a while now. See note for details. Establish Plan for Symptom Monitoring-HTN General On track(2022 3:11 PM CALCINER FEEDER) Kusum Ferrell RN Note: Patient will recognize [...] smoking Lifestyle Not on track(2022 3:11 PM CALCINER FEEDER) No Kusum Dinero RN Note: 10/06/22: Patient not ready at this time. 09/08/22: Patient not ready at this time. 03/09/22: Educated on smoking cessation. Patient declines at this time. Stated she is not ready. Manage anxiety Lifestyle On track(2022 3:11 PM CALCINER FEEDER) No Kusum Dinero, RN Note: 10/06/22: Patient taking medication as prescribed. Sets an alarm but sometimes forgets to take lunch time dose. See note for details. documented as of this encounter Visit Diagnoses Not on filedocumented in this encounter Additional Health Concerns Assessment Noted Time PHQ-9 Depression Total Score: 0 07/17/19 22 1:33 PM CDT documented as of this encounter Care Teams Dusting And Brushing Machine Operator Relationship Specialty [place] [address] [place] [address] PCP - General FAMILY PRACTICE 12/24/15 04/20/23 Troy Avalos MD [address] [place], [place] [phone] PCP - General FAMILY PRACTICE 12/31/24 Stu Shepherd MD [facility]. [facility] [address] [place] [address] [place] Embedded Processor CARDIOVASCULAR DISEASE 11/25/16 Kusum Dinero, RN [address] [place] [address] Food And Beverage Controller (Ambulatory) REGISTERED NURSE 03/06/19 05/11/23 documented as of this encounter
--- OUTSIDE RECORDS SUMMARY | 2025-02-04 14:52 | XMS_ITS | Encounter Summary ---
Author Organization [facility] Address [facility] [place] [address] Care Team Providers Care Coordinate Measuring Equipment Operator Name Role Phone Renato Dale MD Primary Care Provider [phone] Stu Shepherd MD Unavailable [phone] Kusum Dinero RN Unavailable [phone] Troy Avalos MD Primary Care Provider [phone] Encounter Details Date Type Department Care Team (Late st Contact Info) Description 01/19/2023 [employer] Message Enc [facility] Medical Group Family & Internal Medicine [facility] [address] [place] [address] [place] [address] [place] [address] ER Visit Social History Tobacco Use Types Packs/Day Years [...] place to sleep or slept in a custodial (including now)? No 06/15/2022 Education Answer Date [...] 02/07/2025 11:00 AM CDT Office Visit [facility] [facility], [facility] [address] [place] [address] Jose Correia MD 3 [facility] [place] [address] [place] [address] documented as of this encounter Goals Goal Patient Goal Type Associated Problems Recent Progress Patient-Stated? Author Reduce Sodium Intake Diet On track(2022 1:41 PM CDT) Kusum Ferrell RN Note: 03/09/22: Patient continues to watch sodium intake of no more than 2,000 mg sodium diet daily. Establish Regular Follow-Ups with PCP / Cardiology General On track(2022 3:11 PM TRIAGE REGISTERED NURSE) Kusum Ferrell, RN Note: 10/06/22: confirmed appointment with on 11/23/22. 08/17/22: Patient will f/u with on 08/24/22 and Legal Researcher the last week of July. She did not have date available during call. Establish Plan for Symptom Monitoring- HF General On track(2022 3:11 PM TRIAGE REGISTERED NURSE) Kusum Ferrell, RN Note: Patient will recognize symptoms of CHF and report to physician should they occur. Daily weight. Report weight gain of > 3 lbs overnight or > 5 lbs in a week Maintain 64 oz fluid restriction Call physician if you experience worsening shortness of breath, edema, fatigue, or cough 08/17/22: Scheduled to see Legal Researcher at the end of July. Patient is on fluid restriction and doesn't go over 64 ounces. SOB with exertion and she plans on discussing with Legal Researcher at upcoming appointment since this has been going on for a while now. See note for details. Establish Plan for Symptom Monitoring-HTN General On track(2022 3:11 PM TRIAGE REGISTERED NURSE) Kusum Ferrell RN Note: Patient will recognize [...] smoking Lifestyle Not on track(2022 3:11 PM TRIAGE REGISTERED NURSE) No Kusum Dinero RN Note: 10/06/22: Patient not ready at this time. 09/08/22: Patient not ready at this time. 03/09/22: Educated on smoking cessation. Patient declines at this time. Stated she is not ready. Manage anxiety Lifestyle On track(2022 3:11 PM TRIAGE REGISTERED NURSE) No Kusum Dinero, RN Note: 10/06/22: Patient taking medication as prescribed. Sets an alarm but sometimes forgets to take lunch time dose. See note for details. documented as of this encounter Visit Diagnoses Not on filedocumented in this encounter Additional Health Concerns Assessment Noted Time PHQ-9 Depression Total Score: 0 07/17/19 22 1:33 PM CDT documented as of this encounter Care Teams Coordinate Measuring Equipment Operator Relationship Specialty [place] [address] [place] [address] PCP - General FAMILY PRACTICE 12/24/15 04/20/23 Troy Avalos MD [address] [place], [place] [phone] PCP - General FAMILY PRACTICE 12/31/24 Stu Shepherd MD [facility]. [facility] [address] [place] [address] [place] Legal Researcher CARDIOVASCULAR DISEASE 11/25/16 Kusum Dinero, RN [address] [place] [address] Assistant Editor (Ambulatory) REGISTERED NURSE 03/06/19 05/11/23 documented as of this encounter
--- OUTSIDE RECORDS SUMMARY | 2025-02-04 14:52 | XMS_ITS | Encounter Summary ---
Author Organization [facility] Address [facility] [place] [address] Care Team Providers Care Box Blank Machine Feeder Name Role Phone Rentao Dale MD Primary Care Provider [phone] Stu Shepherd MD Unavailable [phone] Kusum Dinero RN Unavailable [phone] Troy Avalos MD Primary Care Provider [phone] Encounter Details Date Type Department Care Team (Late st Contact Info) Description 12/24/2022 [facility] [employer] Message Enc [facility] Medical Group Family & Internal Medicine [facility] [address] [place] [address] [place] [address] [place] [address] Surgeon Social History Tobacco Use Types Packs/Day Years [...] place to sleep or slept in a retirement (including now)? No 06/15/2022 Education Answer Date [...] 02/07/2025 11:00 AM CDT Office Visit [facility] [facility], [facility] [address] [place] [address] Jose Correia MD 3 [facility] [employer] [address] [place], [place] [id number] documented as of this encounter Goals Goal Patient Goal Type Associated Problems Recent Progress Patient-Stated? Author Reduce Sodium Intake Diet On track(2022 1:41 PM CDT) Kusum Ferrell RN Note: 03/09/22: Patient continues to watch sodium intake of no more than 2,000 mg sodium diet daily. Establish Regular Follow-Ups with PCP / Cardiology General On track(2022 3:11 PM PRESS OFFICER) Kusum Ferrell, RN Note: 10/06/22: confirmed appointment with on 11/23/22. 08/17/22: Patient will f/u with on 08/24/22 and Process Controller the last week of July. She did not have date available during call. Establish Plan for Symptom Monitoring- HF General On track(2022 3:11 PM PRESS OFFICER) Kusum Ferrell, RN Note: Patient will recognize symptoms of CHF and report to physician should they occur. Daily weight. Report weight gain of > 3 lbs overnight or > 5 lbs in a week Maintain 64 oz fluid restriction Call physician if you experience worsening shortness of breath, edema, fatigue, or cough 08/17/22: Scheduled to see Process Controller at the end of July. Patient is on fluid restriction and doesn't go over 64 ounces. SOB with exertion and she plans on discussing with Process Controller at upcoming appointment since this has been going on for a while now. See note for details. Establish Plan for Symptom Monitoring-HTN General On track(2022 3:11 PM PRESS OFFICER) Kusum Ferrell RN Note: Patient will recognize [...] smoking Lifestyle Not on track(2022 3:11 PM PRESS OFFICER) No Kusum Dinero RN Note: 10/06/22: Patient not ready at this time. 09/08/22: Patient not ready at this time. 03/09/22: Educated on smoking cessation. Patient declines at this time. Stated she is not ready. Manage anxiety Lifestyle On track(2022 3:11 PM PRESS OFFICER) No Kusum Dinero, RN Note: 10/06/22: Patient taking medication as prescribed. Sets an alarm but sometimes forgets to take lunch time dose. See note for details. documented as of this encounter Visit Diagnoses Not on filedocumented in this encounter Additional Health Concerns Assessment Noted Time PHQ-9 Depression Total Score: 0 07/17/19 22 1:33 PM CDT documented as of this encounter Care Teams Box Blank Machine Feeder Relationship Specialty [place] [address] [place] [address] PCP - General FAMILY PRACTICE 12/24/15 04/20/23 Troy Avalos MD [address] [place], [place] [phone] PCP - General FAMILY PRACTICE 12/31/24 Stu Shepherd MD [facility]. [facility] [address] [place] [address] [place] Process Controller CARDIOVASCULAR DISEASE 11/25/16 Kusum Dinero, RN [address] [place] [address] Student Teacher (Ambulatory) REGISTERED NURSE 03/06/19 05/11/23 documented as of this encounter
--- OUTSIDE RECORDS SUMMARY | 2025-02-04 14:52 | XMS_ITS | Encounter Summary ---
Author Organization [facility] Address [facility] [place] [address] Care Team Providers Care Exercise Rider Name Role Phone Renato Dale MD Primary Care Provider [phone] Ifeanyi Nash MD Unavailable Unavailable Stu Shepherd MD Unavailable [phone] Kusum Dinero RN Unavailable [phone] Troy Avalos MD Primary Care Provider [phone] Encounter Details Date Type Department Care Team (Late st Contact Info) Description 12/29/2015 Abstract [facility] [address] [place] [address] Ray Cruz MA Social History Tobacco Use Types Packs/Day Years Used Date Smoking Tobacco: Every Day Cigarettes Smokeless Tobacco: Never Alcohol Use Standard Drinks/Week Comments No 0 (1 standard drink = 0.6 oz pur e alcohol) Comments Unknown Sex and Gender Information Value Date Recorded [...] Description 02/07/2025 11:00 AM CDT [facility] [address] Jose Correia MD 3 [facility] [address] [place] [phone] documented as of this encounter Procedures Procedure Name Priority Date/Time Associated Diagnosis Comments PROTIME (OUTSIDE LAB) Routine 12/16/2015 CBC (OUTSIDE LAB) Routine 12/16/2015 COMPREHENSIVE METABOLIC PANEL Routine 12/16/2015 CK (CPK) Routine 12/16/2015 documented in this encounter Results * PROTIME (OUTSIDE LAB) (12/16/2015) PROTIME 11.1 INR 0.9 12/16/2015 us [facility] Abstract LAB-OUTSIDE/ABSTRACTED Edite d Result - Final * CK (CPK) (12/16/2015) CPK 102 12/16/2015 us Doc [facility] Abstract LABORATORY Edited Resul t - Final * COMPREHENSIVE METABOLIC PANEL (12/16/2015) SODIUM S/P/B 141 POTASSIUM S/P/B 3.9 CO2 20 CHLORIDE S/P/B 104 GLUCOSE 96 CALCIUM S/P/B 9.5 BUN 21 CREATININE S/P/B 0.81 EGFR NON-AFR. AMER. >60 ALKALINE PHOSPHATASE S/P/B 97 ALT 18 AST 27 BILIRUBIN TOTAL S/P/B 0.3 ALBUMIN S/P/B 3.9 3.5 - 5.0 TOTAL PROTEIN S/P/B 6.8 12/16/2015 us Doc [facility] Abstract LABORATORY Final Result * CBC (OUTSIDE LAB) (12/16/2015) WBC 10.2 HGB 13.7 HCT 40.5 PLT 255 12/16/2015 us Doc [facility] Abstract LAB-OUTSIDE/ABSTRACTED Final Result documented in this encounter Visit Diagnoses Not on filedocumented in this encounter Additional Health Concerns Infection Onset Date Last Indicated Resolved Time COVID-19 Rule Out 05/06/2022 05/06/2022 05/06/2022 12:01 PM INSTRUCTOR PHYSICAL EDUCATION documented as of this encounter Care Teams Exercise Rider Relationship Specialty [place] [address] [place] [address] PCP - General FAMILY PRACTICE 12/24/15 04/20/23 Troy Avalos MD [address] [place] [address] PCP - General FAMILY PRACTICE 12/31/24 [place] [address] [place] [address] [place] Mechanical Engineering Manager CARDIOVASCULAR DISEASE 10/01/15 11/25/16 Stu Shepherd MD Three [facility]. [facility] [address] [place] [address] [place] Mechanical Engineering Manager CARDIOVASCULAR DISEASE 11/25/16 Kusum Dinero, RN [address] [place] [address] Can Sterilizer (Ambulatory) REGISTERED NURSE 03/06/19 05/11/23 documented as of this encounter
--- OUTSIDE RECORDS SUMMARY | 2025-02-04 14:52 | XMS_ITS | Clinical Summary ---
Author Organization [facility] Address Critical access hospital[address] [place] [address] Care Team Providers Care Steam Box Operator Name Role Phone Stu Shepherd MD Unavailable [phone] Troy Avalos MD Primary Care Provider [phone] Allergies Active Allergy Reactions Criticality Noted Date Comments Statins Other (see comment) Low 11/14/2020 rhabdomyolysis Medications doxycycline hyclate 100 MG tablet Take 1 tablet (100 mg total) by mouth 2 (two) times daily. 06/16/19 22 Active furosemide (LASIX) 40 MG tabletIndications: Chronic heart failure with preserved ejection fraction (CMS/HCC HHS/HCC),Edema, unspecified type Take 1 tablet (40 mg total) by mouth every other day. 45 tablet 1 11/27/19 22 Active Additional Information Patient taking differently:40 mg OralDaily, Reported on 12/23/2022 cyclobenzaprine (FLEXERIL) 10 MG tabletIndications: Lumbar facet arthropathy TAKE 1 TABLET(10 MG) BY MOUTH THREE TIMES DAILY NEEDED FOR MUSCLE SPASMS 30 tablet 05/17/19 23 Active pregabalin (LYRICA) 150 MG capsuleIndications :Impingement syndrome of left shoulder TAKE 1 CAPSULE(150 MG) BY MOUTH TWICE DAILY 60 capsule 11/04/19 23 Active albuterol sulfate HFA 108 (90 Base) MCG/ACT inhalerIndications :CHARLES (dyspnea on exertion),Wheezing INHALE 2 PUFFS BY MOUTH EVERY 6 HOURS NEEDED FOR WHEEZING 54 g 1 12/25/19 23 Active ezetimibe (ZETIA) 10 MG tabletIndications: Mixed hyperlipidemia TAKE 1 TABLET(10 MG) BY MOUTH DAILY 90 tablet 01/25/20 23 Active hydrOXYzine (ATARAX) 25 MG tabletIndications: Insomnia with sleep apnea Take 1 tablet (25 mg total) by mouth nightly at bedtime. 90 tablet 01/29/20 23 Active sertraline (ZOLOFT) 100 MG tabletIndications: Depression Take 1 tablet (100 mg total) by mouth daily. 90 tablet 01/29/20 23 Active omeprazole (PRILOSEC) 40 MG capsuleIndications :Gastroesophageal reflux disease with esophagitis without hemorrhage Take 1 capsule (40 mg total) by mouth daily. 90 capsule 3 02/22/20 23 Active XARELTO 20 MG Tab tabletIndications: Chronic deep vein thrombosis (DVT) of axillary vein of right upper extremity ([facility] HHS/[facility]) TAKE 1 TABLET(20 MG) BY MOUTH DAILY WITH SUPPER 90 tablet 03/16/20 Active HYDROcodone-acetam inophen (NORCO) 5-325 MG tabletIndications: Chronic Pain Take 1 tablet by mouth every 6 (six) hours as needed. Indications: Chronic Pain 60 tablet 03/25/20 23 Active sertraline (ZOLOFT) 50 MG tabletIndications: Depression TAKE 1 TABLET(50 MG) BY MOUTH DAILY 90 tablet 06/14/19 24 Active busPIRone (BUSPAR) 15 MG tabletIndications: Anxiety TAKE 1 TABLET(15 MG) BY MOUTH THREE TIMES DAILY 270 tablet 07/15/19 24 Active Active Problems Problem Noted Date Diagnosed Date Emphysema lung ([facility] HHS/HCC) 09/17/2022 Hidradenitis suppurativa 01/26/2022 Impingement syndrome of left shoulder 07/19/2021 Assessment & Plan (08/26/2021 9:19 AM CDT): No evidence of rotator cuff tear noted on MR arthrogram. Begin formal physical therapy in [place]. Follow-up in 6 weeks for repeat evaluation. Assessment & Plan (07/19/2021 10:36 AM CDT): There is a possibility that she may have a articular sided partial rotator cuff tear. MR arthrogram in the future. However at this time will start conservative treatment. Physician directed exercises given. Steroid injected today. Follow-up in 6 weeks if no significant improvement. Care Management 07/03/2021 Deep vein thrombosis (DVT) o f right lower extremity ([facility]) 06/19/2021 Assessment & Plan (07/19/2021 10:37 AM CDT): On blood thinners and unable to do nonsteroidal anti-inflammatories Stable angina 01/06/2021 Tobacco abuse 11/14/2020 Assessment & Plan (12/12/2020 2:11 PM CDT): I encouraged tobacco cessation. She cannot afford patches or gum because her insurance will not cover them. Assessment & Plan (11/14/2020 11:20 AM CDT): I encouraged tobacco cessation. She cannot afford patches or gum because her insurance will not cover them. Ataxia 02/15/2019 Neuritis 02/15/2019 Acute deep vein thrombosis ( DVT) of distal vein of left lower extremity ([facility]) 09/18/2018 Assessment & Plan (12/12/2020 2:11 PM CDT): Continue anticoagulation with Xarelto. Assessment & Plan (11/14/2020 11:21 AM CDT): Continue anticoagulation with Xarelto. Pulmonary HTN ([facility]) 06/18/2018 Assessment & Plan (09/03/2021 12:42 PM CDT): Her pulmonary hypertension is likely secondary to a mixture of both underlying pulmonary issues and heart failure issues. Continue furosemide. Assessment & Plan (12/12/2020 2:10 PM CDT): Her pulmonary hypertension is likely secondary to a mixture of both underlying pulmonary issues and heart failure issues. Continue furosemide 80 mg daily. Assessment & Plan (11/14/2020 11:20 AM CDT): Her pulmonary pretension is likely secondary to a mixture of both underlying pulmonary issues and heart failure issues. Continue furosemide 80 mg daily. Right hip pain 10/31/2017 Class 2 severe obesity due t o excess calories with serious comorbidity in adult 07/21/2017 Assessment & Plan (09/03/2021 12:43 PM CDT): She is obese with a Body mass index is 39.22 kg/m . She was educated on lifestyle modifications including diet and exercise. Assessment & Plan (08/26/2021 9:21 AM CDT): We discussed the adverse effects of weight on osteoarthritis of the knee. For every 1 pound loss, 4 to 6 pounds of stress is relieved from the knee. We discussed low carbohydrate diet to help with weight loss. 80% of weight loss is through diet. Assessment & Plan (12/12/2020 2:11 PM CDT): I encouraged lifestyle modifications including diet and exercise. Assessment & Plan (11/14/2020 11:21 AM CDT): I encouraged lifestyle modifications including diet and exercise. Heart failure with preserved ejection fraction ([facility]) 07/21/2017 Assessment & Plan (12/12/2020 2:10 PM CDT): She does not appear volume overloaded. She had a right heart catheterization in 2018 that time showed elevated pulmonary capillary wedge pressure. Continue furosemide. Assessment & Plan (11/14/2020 11:20 AM CDT): She does not appear volume overloaded. She had a right heart catheterization in 2018 that time showed elevated pulmonary capillary wedge pressure. Continue furosemide. Deep venous thrombosis of axillary vein ([facility] HHS/HCC) 06/13/2017 Lumbar facet arthropathy 05/03/2017 Chronic bronchitis ([facility] HHS/HCC) 04/27/2017 Lumbar radiculopathy 04/05/2017 Nicotine dependence 01/27/2017 Atelectasis 11/26/2016 Herniated nucleus pulposus, L4-5 08/12/2016 Dizziness 08/04/2016 Costal chondritis 04/18/2016 Cervical disc herniation 01/01/2016 Assessment & Plan (08/26/2021 9:20 AM CDT): May need to consider further evaluation if pain does not improve Assessment & Plan (07/19/2021 10:36 AM CDT): Certainly could contribute to shoulder pain and discomfort Stenosis of intervertebral foramina 01/01/2016 Palpitations 12/31/2015 Assessment & Plan (10/09/2021 10:39 AM CDT): Normal echo No arhythmia on Assessment & Plan (09/03/2021 12:42 PM CDT): I recommended that we repeat her Holter monitor. Continue metoprolol in the meantime. Assessment & Plan (12/12/2020 2:10 PM CDT): Her symptoms are controlled, continue metoprolol. Her Holter monitor was benign. Assessment & Plan (11/14/2020 11:18 AM CDT): We will await monitor report from [place]. Continue metoprolol. Degeneration of intervertebral disc 12/01/2015 Spinal stenosis 12/01/2015 Anxiety 10/16/2015 GERD (gastroesophageal reflux disease) 5 Assessment & Plan (07/19/2021 10:37 AM CDT): Therefore need to be careful of nonsteroidal anti-inflammatories Insomnia with sleep apnea 08/12/2014 LORETTA (obstructive sleep apnea) Hyperlipidemia Resolved Problems Problem Noted Date Diagnosed Date Resolved Date Essential hypertension 02/15/201912/11 Facial numbness 02/05/2019 06/01/2021 Insect bite, infected 09/12/20172021 Wears glasses 09/12/2017 01/11/2020 Seasonal allergies 07/08/2016 Abnormal stress test 02/03/2016 016 Depression 08/12/2014 05/24/2022 Chest pain, unspecified 06/2016 Encounters Date Type Department Care Team Description 01/25/2025 Telephone [facility] [facility], [address] [address] Fernanda Guillen, RMA Consult from Last 3 Months Immunizations Immunization Administration Dates Next Due Fluzone 6 Months+ Quad (0.5 mL Prefilled Syringe ) 03/17/2020 Fluzone High Dose - >Age 65 (Prefilled Syringe) 02/21/2023 Influenza (Generic) 05/16/2014 Influenza Adult (Generic) 03/03/2015 PFIZER COVID-19 (ORIGINAL FO RMULATION, PURPLE CAP) mRNA, LNP-S, PF, 30 MCG/0.3 ML DOSE 08/25/2020,07/28/2020 Family History Medical History Relation Comments Stroke Brother 1 Stroke Brother 2 Diabetes Brother 3 Cancer Father Heart Attack Maternal Grandmother pacemeaker Maternal Grandmother COPD Mother Cancer Mother cardiovascular disease Mother malignant neoplasm of lung Mother Diabetes Paternal Grandmother Heart Paternal Grandmother Relation Status Comments Brother 1 Alive Brother 2 Alive Brother 3 Alive Father Maternal Grandmother Mother Paternal Grandmother Social History Tobacco Use Types Packs/Day Years Used Date Smoking Tobacco: Every Day Cigarettes 1 43.8 Started: 1979 Smokeless Tobacco: Never Tobacco Cessation:Ready to Q uit: No; Counseling Given: Yes Comments:not ready to quit; pcp to educate [...] file 10/30 Overall Financial Resource Strain (CARDIA) Answe r Date Recorded How hard is it [...] place to sleep or slept in a fci (including now)? No 06/15/2022 Education Answer Date [...] file Not on file Not on file Last Filed Vital Signs Vital Sign Reading Time Taken Comments Blood Pressure 90/69 02/21/2023 8:22 AM CDT Pulse 85 02/21/2023 8:22 AM CDT Temperature 35.6 C (96 F) 02/21/2023 8:22 AM CDT Respiratory Rate 18 02/21/2023 8:22 AM CDT Oxygen Saturation 96% 02/21/2023 8:22 AM CDT Inhaled Oxygen Concentration - - Weight 112.5 kg (248 lb) 02/21/2023 8:22 AM CDT Height 167.6 cm (5' 6) 02/21/2023 8:22 AM CDT Body Mass Index 40.03 02/21/2023 8:22 AM CDT Plan of Treatment Upcoming Encounters Date Type Department Care Team (Late st Contact Info) Description 02/07/2025 11:00 AM CDT [facility] [address] [address] Jose Correia MD [address] [facility] [address] [place], [place] [id number] Health Maintenance Due Date Last Done Comments Annual Physical 1963 Hepatitis C 02/03/1980 DTaP, Tdap and Td Vaccines (1 - Tdap) 1981 Pneumococcal Vaccine: 50+ Years (1 of 2 - PCV) 1981 Zoster Vaccines (1 of 2) 02/03/2012 RSV Immunization or 60+ Years (1 - Risk 60-74 years 1-dose series) 2022 Cervical Cancer Screening Pap Smear (Age 30 to 64) Every 3 Years 04/30/2022 04/30/2019 Mammogram Screening 05/01/2023 05/01/2021, 05/01/2021, 06/29/2019, Additional history exists ASCVD LDL 08/25/2023 08/24/2022, 11/30, 07/31/2020, Additional history exists Cervical Cancer Screening Pap with HPV Testing (Age 30 to 64) Every 5 Years 04/30/2024 Cervical Cancer Screening with HPV 04/30/2024 PHQ-2 (Physician [place]) 05/02/2024 COVID-19 Vaccine ( - season) 2024 08/25/2020, 07/28/2020 Influenza Adult (#1) 2025 02/21/2023, 03/17/2020, 03/03/2015, Additional history exists Colorectal Cancer Screening Colonoscopy (10 Years) 02/18/2033 02/18/2023, 11/05/2019, 09/07/2011 Meningococcal B Vaccine Aged Out No l onger eligible based on patient's age to complete this topic Meningococcal Vaccine Aged Out No raman tree eligible based on patient's age to complete this topic RSV Immunizations Under 20 Months Aged Out No longer eligible based on patient's age to complete this topic Goals Goal Patient Goal Type Associated Problems Recent Progress Patient-Stated? Author Reduce Sodium Intake Diet On track(2022 1:41 PM CDT) No Kusum Dinero, RN Note: 03/09/22: Patient continues to watch sodium intake of no more than 2,000 mg sodium diet daily. Establish Regular Follow-Ups with PCP / Cardiology General On track(2022 3:11 PM COMMERCIAL DECORATOR) Kusum Ferrell RN Note: 10/06/22: confirmed appointment with on 11/23/22. 08/17/22: Patient will f/u with on 08/24/22 and Passenger Tire Inspector the last week of July. She did not have date available during call. Establish Plan for Symptom Monitoring- HF General On track(2022 3:11 PM COMMERCIAL DECORATOR) Kusum Ferrell RN Note: Patient will recognize symptoms of CHF and report to physician should they occur. Daily weight. Report weight gain of > 3 lbs overnight or > 5 lbs in a week Maintain 64 oz fluid restriction Call physician if you experience worsening shortness of breath, edema, fatigue, or cough 08/17/22: Scheduled to see Passenger Tire Inspector at the end of July. Patient is on fluid restriction and doesn't go over 64 ounces. SOB with exertion and she plans on discussing with Passenger Tire Inspector at upcoming appointment since this has been going on for a while now. See note for details. Establish Plan for Symptom Monitoring-HTN General On track(2022 3:11 PM COMMERCIAL DECORATOR) Kusum Ferrell RN Note: Patient will recognize [...] smoking Lifestyle Not on track(2022 3:11 PM COMMERCIAL DECORATOR) Kusum Ferrell RN Note: 10/06/22: Patient not ready at this time. 09/08/22: Patient not ready at this time. 03/09/22: Educated on smoking cessation. Patient declines at this time. Stated she is not ready. Manage anxiety Lifestyle On track(2022 3:11 PM COMMERCIAL DECORATOR) Kusum Ferrell RN Note: 10/06/22: Patient taking medication as prescribed. Sets an alarm but sometimes forgets to take lunch time dose. See note for details. Procedures Procedure Name Priority Date/Time Associated Diagnosis Comments COLONOSCOPY/EGD GENERIC (SCAN ORDER) 02/18/2023 LIPID PANEL Routine 08/24/2022 9:50 AM CDT Mixed hyperlipidemia MAMMOGRAM GENERIC (SCAN ORDER) 05/01/2021 OUTSIDE CYTOPATH CERV/VAG INTERPRET (PAP) (SCAN ORDER) 04/30/2019 from Last 3 Months or Most Recently Relevant to Health Maintenance Results * COLONOSCOPY/EGD GENERIC (02/18/2023) 02/18/2023 [facility] Scanned SCANNING Final Resu lt * (ABNORMAL) LIPID PANEL (08/24/2022 9:50 AM CDT) CHOLESTEROL 245(H) <200.0 MG/DL 08/24/2022 10:37 AM CDT [facility] TRIGLYCERIDES 238(H) <150 MG/DL 08/24/2022 10:37 AM CDT [facility] HDL 38(L) >40.0 MG/DL 08/24/2022 10:37 AM CDT [facility] LDL (CALCULATED) 159(H) <100 MG/DL 08/24/2022 10:37 AM CDT [facility] NON HDL CHOLESTEROL 207(H) <130 MG/DL 08/24/2022 10:37 AM CDT [facility] CHOL/HDL RATIO 6.4(H) 0.0 - 4.5 08/24/2022 10:37 AM CDT [facility] VLDL CALCULATION 48 5 - 55 MG/DL 08/24/2022 10:37 AM CDT [facility] LIPID INTERPRETATION 08/24/2022 10:37 AM CDT [facility] Comment: NIH CONCENSUS REPORT RECOMMENDATIONS: ADULT CHILD LOW RISK: CHOLESTEROL <200 <170 TRIGLYCERIDE <150 --- HDL >=60 --- LDL <100 <110 BORDERLINE: CHOLESTEROL 200-239 170-199 TRIGLYCERIDE 150-199 --- HDL 40-59 --- LDL 100-159 110-129 HIGH RISK: CHOLESTEROL >=240 >=200 TRIGLYCERIDE >=200 --- HDL <40 --- LDL >=160 >=130 08/24/2022 9:50 AM CDT Renato Dale MD LABORATORY Final Resul t [facility] [address] [place] [address], * MAMMOGRAM GENERIC (05/01/2021) Anatomical Region Laterality Modality Other 05/01/2021 Narrative 05/01/2021 Ordered by an unspecified provider. us Documents Scanned SCANNING Final Result * PAP SMEAR (04/30/2019) 04/30/2019 [facility] Scanned SCANNING Final Resu lt from Last 3 Months or Most Recently Relevant to Health Maintenance Insurance MEDICAID [facility] MEDICARE MEDICAID Care Teams Steam Box Operator Relationship Specialty Start Date End Date Troy Avalos MD [address] [place] [address] PCP - General FAMILY PRACTICE 12/31/24 Stu Shepherd MD [id number] [place] [address] Judith Passenger Tire Inspector CARDIOVASCULAR DISEASE 11/25/16
--- OUTSIDE RECORDS SUMMARY | 2025-02-04 14:52 | XMS_ITS | Encounter Summary ---
Author Organization [facility] Address Formerly [facility] [place] [address] Care Team Providers Care Access Tech Name Role Phone Renato Dael MD Primary Care Provider [phone] Stu Shepherd MD Unavailable [phone] Kusum Dinero RN Unavailable [phone] Troy Avalos MD Primary Care Provider [phone] Encounter Details Date Type Department Care Team (Late st Contact Info) Description 12/30/2016 Abstract [facility] [address] [place] [address] Ray Cruz MA Social History [...] 02/07/2025 11:00 AM CDT [facility] [id number] Jose Correia MD [address] [facility] [address] [place] [address] documented as of this encounter Procedures Procedure Name Priority Date/Time Associated Diagnosis Comments CBC (OUTSIDE LAB) Routine 10/14/2016 BASIC METABOLIC PANEL Routine 10/14/2016 COMPREHENSIVE METABOLIC PANEL Routine 08/03/2016 CK (CPK) Routine 08/03/2016 documented in this encounter Results * BASIC METABOLIC PANEL (10/14/2016) SODIUM S/P/B 140 POTASSIUM S/P/B 4.1 CO2 27 CHLORIDE S/P/B 104 GLUCOSE 98 mg/dL CALCIUM S/P/B 9.6 BUN 20 CREATININE S/P/B 0.82 0.5 - 1.0 EGFR NON-AFR. AMER. >60 <=90 10/14/2016 [facility] LABORATORY Final Result * CBC (OUTSIDE LAB) (10/14/2016) WBC 9.2 HGB 14.2 HCT 43.2 PLT 247 10/14/2016 [facility] Abstract LAB-OUTSIDE/ABSTRACTED Final Result * COMPREHENSIVE METABOLIC PANEL (08/03/2016) SODIUM S/P/B 142 POTASSIUM S/P/B 4.2 CO2 29 CHLORIDE S/P/B 106 GLUCOSE 105 mg/dL CALCIUM S/P/B 9.4 BUN 20 CREATININE S/P/B 0.86 0.5 - 1.0 EGFR NON-AFR. AMER. >60 <=90 ALKALINE PHOSPHATASE S/P/B 106 ALT 23 AST 24 BILIRUBIN TOTAL S/P/B 0.3 ALBUMIN S/P/B 3.9 3.5 - 5.0 TOTAL PROTEIN S/P/B 6.9 08/03/2016 [facility] LABORATORY Final Result * CK (CPK) (08/03/2016) CPK 102 08/03/2016 [facility] LABORATORY Final Result documented in this encounter Visit Diagnoses Not on filedocumented in this encounter Additional Health Concerns Infection Onset Date Last Indicated Resolved Time COVID-19 Rule Out 05/06/2022 05/06/2022 05/06/2022 12:01 PM METAL CLEANER documented as of this encounter Care Teams Access Tech Relationship Specialty [place] [address] [place] [address] PCP - General FAMILY PRACTICE 12/24/15 04/20/23 Troy Avalos MD [address] [place] [address] PCP - General FAMILY PRACTICE 12/31/24 Stu Shepherd MD [facility] [address] [place] [address] [place] Supervising Editor Trailer CARDIOVASCULAR DISEASE 11/25/16 Kusum Dinero, RN [address] [place] [address] Feather Edger (Ambulatory) REGISTERED NURSE 03/06/19 05/11/23 documented as of this encounter
--- OUTSIDE RECORDS SUMMARY | 2025-02-04 14:52 | XMS_ITS | Encounter Summary ---
Author Organization [facility] Address [facility] [place] [address] Care Team Providers Care Inventory Control Associate Name Role Phone Renato Dale MD Primary Care Provider [phone] Stu Shepherd MD Unavailable [phone] Kusum Dinero RN Unavailable [phone] Troy Avalos MD Primary Care Provider [phone] Encounter Details Date Type Department Care Team (Late st Contact Info) Description 05/25/2017 Abstract [facility] [address] [address] Ray Cruz MA Social History Tobacco Use Types Packs/Day Years Used Date Smoking Tobacco: Every Day Cigarettes Smokeless Tobacco: Never Alcohol Use Standard Drinks/Week Comments No 0 (1 standard drink = 0.6 oz pur e alcohol) Comments No Sex and Gender Information Value [...] 02/07/2025 11:00 AM CDT Office Visit [facility], [facility] [address] [place] [address] Jose Correia MD [address] [facility] [address] [place] [address] documented as of this encounter Procedures Procedure Name Priority Date/Time Associated Diagnosis Comments CBC (OUTSIDE LAB) Routine 03/25/2017 COMPREHENSIVE METABOLIC PANEL Routine 03/25/2017 documented in this encounter Results * COMPREHENSIVE METABOLIC PANEL (03/25/2017) SODIUM S/P/B 139 POTASSIUM S/P/B 5.0 CO2 28 CHLORIDE S/P/B 101 GLUCOSE 101 mg/dL CALCIUM S/P/B 9.3 BUN 24 CREATININE S/P/B 0.97 0.5 - 1.0 EGFR NON-AFR. AMER. >60 <=90 ALKALINE PHOSPHATASE S/P/B 117 ALT 51 AST 36 BILIRUBIN TOTAL S/P/B 0.3 ALBUMIN S/P/B 4.0 3.5 - 5.0 TOTAL PROTEIN S/P/B 6.8 03/25/2017 [facility] Abstract LABORATORY Final Result * CBC (OUTSIDE LAB) (03/25/2017) WBC 13.0 HGB 15.2 HCT 46.3 PLT 269 03/25/2017 [facility] Abstract LAB-OUTSIDE/ABSTRACTED Final Result documented in this encounter Visit Diagnoses Not on filedocumented in this encounter Additional Health Concerns Infection Onset Date Last Indicated Resolved Time COVID-19 Rule Out 05/06/2022 05/06/2022 05/06/2022 12:01 PM ABATEMENT WORKER documented as of this encounter Care Teams Inventory Control Associate Relationship Specialty [place] [address] [place] [address] PCP - General FAMILY PRACTICE 12/24/15 04/20/23 Troy Avalos MD [address] [place], [place] [id number] PCP - General FAMILY PRACTICE 12/31/24 Stu Shepherd MD [facility] [address] [place] [address] [place] Nozzle Tender CARDIOVASCULAR DISEASE 11/25/16 Kusum Dinero, RN [address] [place] [address] Unindentured Apprentice (Ambulatory) REGISTERED NURSE 03/06/19 05/11/23 documented as of this encounter
--- OUTSIDE RECORDS SUMMARY | 2025-02-04 14:52 | XMS_ITS | Encounter Summary ---
Author Organization [facility] Address [facility] [place] [address] Care Team Providers Care Speedometer Inspector Name Role Phone Renato Dale MD Primary Care Provider [phone] Stu Shepherd MD Unavailable [phone] Kusum Dinero RN Unavailable [phone] Troy Avalos MD Primary Care Provider [phone] Encounter Details Date Type Department Care Team (Late st Contact Info) Description 10/06/2022 Interact Public Safetyt Message Enc [facility] Family & Internal Medicine [facility] [address] [place] [address] [place] [address] [place] [address] Plaqard Social History Tobacco Use Types Packs/Day Years [...] place to sleep or slept in a assisted (including now)? No 06/15/2022 Education Answer Date [...] file Not on file Not on file COVID-19 Exposure Response Date Recorded In the last 10 days, have yo u been in contact with someone who was confirmed or suspected to have Coronavirus/COVID-19? No / Unsure 09/30/2022 7:50 AM CDT documented as of this encounter Plan of Treatment Upcoming Encounters Date Type Department Care Team (Late st Contact Info) Description 02/07/2025 11:00 AM CDT [facility] [address] [place] [address] Jose Correia MD 3 [facility] [address] [place] [address] documented as of this encounter Goals Goal Patient Goal Type Associated Problems Recent Progress Patient-Stated? Author Reduce Sodium Intake Diet On track(2022 1:41 PM CDT) Kusum Ferrell RN Note: 03/09/22: Patient continues to watch sodium intake of no more than 2,000 mg sodium diet daily. Establish Regular Follow-Ups with PCP / Cardiology General On track(2022 3:11 PM HEMMING AND TACKING MACHINE OPERATOR) Kusum Ferrell RN Note: 10/06/22: confirmed appointment with on 11/23/22. 08/17/22: Patient will f/u with on 08/24/22 and Summer Child Caregiver the last week of July. She did not have date available during call. Establish Plan for Symptom Monitoring- HF General On track(2022 3:11 PM HEMMING AND TACKING MACHINE OPERATOR) Kusum Ferrell RN Note: Patient will recognize symptoms of CHF and report to physician should they occur. Daily weight. Report weight gain of > 3 lbs overnight or > 5 lbs in a week Maintain 64 oz fluid restriction Call physician if you experience worsening shortness of breath, edema, fatigue, or cough 08/17/22: Scheduled to see Summer Child Caregiver at the end of July. Patient is on fluid restriction and doesn't go over 64 ounces. SOB with exertion and she plans on discussing with Summer Child Caregiver at upcoming appointment since this has been going on for a while now. See note for details. Establish Plan for Symptom Monitoring-HTN General On track(2022 3:11 PM HEMMING AND TACKING MACHINE OPERATOR) Kusum Ferrell RN Note: Patient will recognize [...] smoking Lifestyle Not on track(2022 3:11 PM HEMMING AND TACKING MACHINE OPERATOR) No Kusum Dinero RN Note: 10/06/22: Patient not ready at this time. 09/08/22: Patient not ready at this time. 03/09/22: Educated on smoking cessation. Patient declines at this time. Stated she is not ready. Manage anxiety Lifestyle On track(2022 3:11 PM HEMMING AND TACKING MACHINE OPERATOR) No Kusum Dinero RN Note: 10/06/22: Patient taking medication as prescribed. Sets an alarm but sometimes forgets to take lunch time dose. See note for details. documented as of this encounter Visit Diagnoses Not on filedocumented in this encounter Additional Health Concerns Assessment Noted Time PHQ-9 Depression Total Score: 0 07/17/19 22 1:33 PM CDT documented as of this encounter Care Teams Speedometer Inspector Relationship Specialty [place] [address] [place] [address] PCP - General FAMILY PRACTICE 12/24/15 04/20/23 Troy Avalos MD [address] [place] [address] PCP - General FAMILY PRACTICE 12/31/24 Stu Shepherd MD [facility] [address] [place] [address] Judith Summer Child Caregiver CARDIOVASCULAR DISEASE 11/25/16 Kusum Dinero RN [address] [place] [address] Core Rescuer (Ambulatory) REGISTERED NURSE 03/06/19 05/11/23 documented as of this encounter
--- OUTSIDE RECORDS SUMMARY | 2025-02-04 14:52 | XMS_ITS | Encounter Summary ---
Author Organization [facility] Address [facility] [place] [address] Care Team Providers Care Mower Operator Name Role Phone Renato Dale MD Primary Care Provider [phone] Stu Shepherd MD Unavailable [phone] Kusum Dinero RN Unavailable [phone] Troy Avalos MD Primary Care Provider [phone] Encounter Details Date Type Department Care Team (Late st Contact Info) Description 02/08/2023 Orthopaedic Synergy Message Enc [facility] Medical Group Family & Internal Medicine [facility] [address] [place] [address] Hortensia Vaughn, [place] [address] ABD+PEL WO CON Social History Tobacco Use Types Packs/Day Years [...] file 10/30 Overall Financial Resource Strain (CARDIA) Aura r Date Recorded How hard is it [...] place to sleep or slept in a alf (including now)? No 06/15/2022 Education Answer Date [...] 02/07/2025 11:00 AM CDT Office Visit [facility], [address] [address] Jose Correia MD 3 [facility] [place] [address] documented as of this encounter Goals Goal Patient Goal Type Associated Problems Recent Progress Patient-Stated? Author Reduce Sodium Intake Diet On track(2022 1:41 PM CDT) Kusum Ferrell RN Note: 03/09/22: Patient continues to watch sodium intake of no more than 2,000 mg sodium diet daily. Establish Regular Follow-Ups with PCP / Cardiology General On track(2022 3:11 PM RACKET STRINGER) Kusum eFrrell RN Note: 10/06/22: confirmed appointment with on 11/23/22. 08/17/22: Patient will f/u with on 08/24/22 and Programming Development Project Manager the last week of July. She did not have date available during call. Establish Plan for Symptom Monitoring- HF General On track(2022 3:11 PM RACKET STRINGER) Kusum Ferrell RN Note: Patient will recognize symptoms of CHF and report to physician should they occur. Daily weight. Report weight gain of > 3 lbs overnight or > 5 lbs in a week Maintain 64 oz fluid restriction Call physician if you experience worsening shortness of breath, edema, fatigue, or cough 08/17/22: Scheduled to see Programming Development Project Manager at the end of July. Patient is on fluid restriction and doesn't go over 64 ounces. SOB with exertion and she plans on discussing with Programming Development Project Manager at upcoming appointment since this has been going on for a while now. See note for details. Establish Plan for Symptom Monitoring-HTN General On track(2022 3:11 PM RACKET STRINGER) Kusum Ferrell RN Note: Patient will recognize [...] smoking Lifestyle Not on track(2022 3:11 PM RACKET STRINGER) No Kusum Dinero RN Note: 10/06/22: Patient not ready at this time. 09/08/22: Patient not ready at this time. 03/09/22: Educated on smoking cessation. Patient declines at this time. Stated she is not ready. Manage anxiety Lifestyle On track(2022 3:11 PM RACKET STRINGER) No Kusum Dinero, RN Note: 10/06/22: Patient taking medication as prescribed. Sets an alarm but sometimes forgets to take lunch time dose. See note for details. documented as of this encounter Visit Diagnoses Not on filedocumented in this encounter Additional Health Concerns Assessment Noted Time PHQ-9 Depression Total Score: 0 07/17/19 22 1:33 PM CDT documented as of this encounter Care Teams Mower Operator Relationship Specialty [place] [address] [place] [address] PCP - General FAMILY PRACTICE 12/24/15 04/20/23 Troy Avalos MD [address] [place] [address] PCP - General FAMILY PRACTICE 12/31/24 Stu Shepherd MD [facility] [address] [place], [place] [address] Finley Programming Development Project Manager CARDIOVASCULAR DISEASE 11/25/16 Kusum Dineor, RN [address] [place] [address] Senior Research Analyst (Ambulatory) REGISTERED NURSE 11/5/19 1/10/24 documented as of this encounter
--- OUTSIDE RECORDS SUMMARY | 2025-02-04 14:52 | XMS_ITS | Clinical Summary ---
Author Organization [facility] Address [address] [address] [place] [address] Phone Care Team Providers Care Panel Instrument Repairer Name Role Phone Anoop Salcedo MD Unavailable Troy Avalos MD Primary Care Provider [phone] Allergies Active Allergy Reactions Criticality Noted Date Comments Other Unknown bandaids Medications cyclobenzaprine 10 MG PO TABS Take by mouth as needed. Active AZELASTINE HCL NA 137 mcg by Nasal route 2 times daily. 2 sprays each nostril Active fluticasone 50 MCG/ACT NA SUSP 2 Sprays by Nasal route daily. Use in each nostril as directed. Active zolpidem (AMBIEN) 10 MG Tablet TAKE 1 TABLET BY MOUTH EVERY DAY AT BEDTIME 30 Tab 2 6 Active Additional Information Patient not taking.Reported on 05/09/2019 atorvastatin (LIPITOR) 40 MG Tablet Take 40 mg by mouth every morning. 9 Active busPIRone (BUSPAR) 15 MG TabletIndicatio ns:Anxiety Disorder Take 15 mg by mouth 2 times daily. Indications: Anxiety Disorder 9 Active furosemide (LASIX) 40 MG Tablet every morning. 9 Active HYDROcodone-lloyd taminophen (NORCO) 5-325 MG Tablet TK ONE TO TWO TS PO Q 4 H PRF ACUTE PAIN 9 Active metoprolol Succinate (TOPROL-XL) 25 MG TABLET SR 24 HR Take 12.5 mg by mouth every morning. Active rivaroxaban (XARELTO) 15 MG Tablet every morning. 9 Active hyoscyamine (ANASPAZ, LEVSIN) 0.125 MG Tablet TAKE 1 TABLET BY MOUTH EVERY 6 HOURS NEEDED FOR PAIN 360 Tab 3 0 Active sertraline (ZOLOFT) 100 MG Tablet Take 150 mg by mouth daily. Active omeprazole (PriLOSEC) 40 MG CAPSULE DELAYED RELEASE Take 1 Capsule by mouth every morning. 90 Capsule 1 Active doxycycline hyclate (VIBRAMYCIN) 100 MG Capsule Take 100 mg by mouth 2 times daily. Active albuterol (PROVENTIL, VENTOLIN) (2.5 MG/3ML) 0.083% Nebulizer Soln 3 Active Symbicort 160-4.5 MCG/ACT Aerosol INHALE 2 PUFFS BY MOUTH EVERY 12 HOURS 3 Active hydrOXYzine (ATARAX) 25 MG Tablet Take by mouth. 2 Active ezetimibe (ZETIA) 10 MG Tablet Take 1 Tablet by mouth daily. 4 Active metFORMIN (GLUCOPHAGE) 500 MG Tablet Take 500 mg by mouth daily. 4 Active Mounjaro 2.5 MG/0.5ML Solution Pen-injector ADMINISTER 2.5 MG UNDER THE SKIN WEEKLY FOR 4 WEEKS 4 Active Active Problems Problem Noted Date Diagnosed Date Other pulmonary embolism without acute cor pulmo nale 06/30/2021 LORETTA (obstructive sleep apnea) 05/09/2019 Non morbid obesity 05/09/2019 Pulmonary HTN 05/09/2019 Benign essential HTN 05/09/2019 Centrilobular emphysema 05/09/2019 Tobacco use disorder 05/09/2019 Insomnia with sleep apnea Immunizations Immunization Administration Dates Next Due PUR FLU PRES FREE INTRADERMAL 05/16/2014 Family History Medical History Relation Name Comments Stroke Brother Cancer Father Kidney Cancer Maternal Grandmother Chronic Obstructive Pulmonary Disease Maternal Grandmo ther Heart Disease Maternal Grandmother Cancer Mother chest Chronic Obstructive Pulmonary Disease Mother Relation Name Status Comments Brother Father Maternal Grandmother Mother Social History Tobacco Use Types Packs/Day Years Used Date Smoking Tobacco: Every Day Cigarettes 1 40 Smokeless Tobacco: Never Tobacco Cessation:Ready to Q uit: Not Asked; Counseling Given: Not Answered Alcohol Use Standard Drinks/Week Comments Never 0 (1 standard drink = 0.6 oz pur e alcohol) occassional Comments Unknown Sex and Gender Information Value Date Recorded Sex Assigned at Not on file Legal Sex Female 8:30 PM CDT Gender Identity Not on file Sexual Orientation Not on file Last Filed Vital Signs Vital Sign Reading Time Taken Comments Blood Pressure 128/72 05/31/2023 2:14 PM FLORAL MERCHANDISER Pulse 77 05/31/2023 2:14 PM FLORAL MERCHANDISER Temperature 35.7 C (96.3 F) 05/31/2023 2:14 PM FLORAL MERCHANDISER Respiratory Rate 16 05/31/2023 2:14 PM FLORAL MERCHANDISER Oxygen Saturation 95% 05/31/2023 2:14 PM FLORAL MERCHANDISER Inhaled Oxygen Concentration - - Weight 109.3 kg (240 lb 14.4 oz) 05/31/2023 2:14 PM FLORAL MERCHANDISER Height 167.6 cm (5' 6) 05/31/2023 2:14 PM FLORAL MERCHANDISER Body Mass Index 38.88 05/31/2023 2:14 PM FLORAL MERCHANDISER Plan of Treatment Health Maintenance Due Date Last Done Comments Hepatitis C Virus (HCV) Screening 1962 TdaP Immunization 1962 Pneumococcal Immunization (50+ years) (1 of 2 - PCV) 1981 Pap Smear 1983 Cervical Cancer Screening (CCS) 02/03/1992 HPV/Cotest 02/03/1992 Cologuard 2007 Immunochemical Fecal Occult Blood 2007 Zoster Immunization (1 of 2) 02/03/2012 Medicare Initial AWV G0438 09/30/2013 Respiratory Syncytial Virus (RSV) Immunization (Adult) (1 - Risk 60-74 years 1-dose series) 2022 Mammogram 05/01/2022 05/01/2021, 06/29/2019 Influenza Immunization (#1) 2024 1006/2022, 03/17/2020, 03/03/2015, Additional history exists SARS-COV-2 Immunization ( season) 2024 08/25/2020, 07/28/2020 Colonoscopy 02/18/2033 02/18/2023, 07/0 10/2019, 05/18/2013 Colorectal Cancer Screening 02/18/2033 Lung Cancer Screening Discontinued 09/06/2022, 020 Hepatitis B Immunization Aged Out No longer eligible based on patient's age to complete this topic Human Papillomavirus (HPV) Immunization Aged Out No longer eligible based on patient's age to complete this topic Meningococcal Immunization (ACWY) Aged Out No longer eligible based on patient's age to complete this topic Rotavirus Immunization Aged Out No lo nger eligible based on patient's age to complete this topic Procedures Procedure Name Priority Date/Time Associated Diagnosis Comments CT CHEST SCREENING WO Routine 09/06/2022 12:00 AM CDT Tobacco use disorder COLONOSCOPY Routine 05/18/2013 from Last 3 Months or Most Recently Relevant to Health Maintenance Results * CT CHEST SCREENING WO (09/06/2022 12:00 AM CDT) Anatomical Region Laterality Modality Chest N/A Other 09/06/2022 us Anoop Salcedo MD IMG CT ORDERABLES Final Result * COLONOSCOPY (05/18/2013) us Bennie Hsu DO PROCEDURE/MINOR SURGICAL ORDERA BLES Final Result from Last 3 Months or Most Recently Relevant to Health Maintenance Insurance MEDICAID [place] MEDICARE C HUMANA Care Teams Panel Instrument Repairer Relationship Specialty Start Date End Date Troy Avalos MD [address] [place] [address] PCP - General Family Medicine 05/31/23 Anoop Salcedo MD [address] [place] [address] Consulting Physician Pulmonary Disease 12/31/21
--- OUTSIDE RECORDS SUMMARY | 2025-02-04 14:52 | XMS_ITS | Encounter Summary ---
Author Organization [facility] Address [facility] [place] [address] Care Team Providers Care Ripening Room Hand Name Role Phone Reanto Dale MD Primary Care Provider [phone] Stu Shepherd MD Unavailable [phone] Kusum Dinero RN Unavailable [phone] Troy Avalos MD Primary Care Provider [phone] Encounter Details Date Type Department Care Team (Late st Contact Info) Description 01/13/2023 JEDI MINDt Message Enc [facility] Group Family & Internal Medicine [facility] [address] [place] [address] [place] [address] [place] [address] Nasal spray Social History Tobacco Use Types Packs/Day Years [...] place to sleep or slept in a penitentiary (including now)? No 06/15/2022 Education Answer Date [...] 02/07/2025 11:00 AM CDT Office Visit Joanna [facility] [facility] [address] [place] [address] Jose Correia MD 3 [facility] [place] [address] [place] [address] documented as of this encounter Goals Goal Patient Goal Type Associated Problems Recent Progress Patient-Stated? Author Reduce Sodium Intake Diet On track(2022 1:41 PM CDT) Kusum Ferrell RN Note: 03/09/22: Patient continues to watch sodium intake of no more than 2,000 mg sodium diet daily. Establish Regular Follow-Ups with PCP / Cardiology General On track(2022 3:11 PM CASINO CASHIER MANAGER) Kusum Ferrell, RN Note: 10/06/22: confirmed appointment with on 11/23/22. 08/17/22: Patient will f/u with on 08/24/22 and Magento Web Developer the last week of July. She did not have date available during call. Establish Plan for Symptom Monitoring- HF General On track(2022 3:11 PM CASINO CASHIER MANAGER) Kusum Ferrell, RN Note: Patient will recognize symptoms of CHF and report to physician should they occur. Daily weight. Report weight gain of > 3 lbs overnight or > 5 lbs in a week Maintain 64 oz fluid restriction Call physician if you experience worsening shortness of breath, edema, fatigue, or cough 08/17/22: Scheduled to see Magento Web Developer at the end of July. Patient is on fluid restriction and doesn't go over 64 ounces. SOB with exertion and she plans on discussing with Magento Web Developer at upcoming appointment since this has been going on for a while now. See note for details. Establish Plan for Symptom Monitoring-HTN General On track(2022 3:11 PM CASINO CASHIER MANAGER) Kusum Ferrell RN Note: Patient will recognize [...] smoking Lifestyle Not on track(2022 3:11 PM CASINO CASHIER MANAGER) No Kusum Dinero RN Note: 10/06/22: Patient not ready at this time. 09/08/22: Patient not ready at this time. 03/09/22: Educated on smoking cessation. Patient declines at this time. Stated she is not ready. Manage anxiety Lifestyle On track(2022 3:11 PM CASINO CASHIER MANAGER) No Kusum Dinero, RN Note: 10/06/22: Patient taking medication as prescribed. Sets an alarm but sometimes forgets to take lunch time dose. See note for details. documented as of this encounter Visit Diagnoses Not on filedocumented in this encounter Additional Health Concerns Assessment Noted Time PHQ-9 Depression Total Score: 0 07/17/19 22 1:33 PM CDT documented as of this encounter Care Teams Ripening Room Hand Relationship Specialty [place] [address] [place] [address] PCP - General FAMILY PRACTICE 12/24/15 04/20/23 Troy Avalos MD [address] [place], [place] [id number] PCP - General FAMILY PRACTICE 12/31/24 Stu Shepherd MD [facility]. [facility] [address] [place] [address] [place] Magento Web Developer CARDIOVASCULAR DISEASE 11/25/16 Kusum Dinero, RN [address] [place] [address] Supervisor Shuttle Fitting (Ambulatory) REGISTERED NURSE 03/06/19 05/11/23 documented as of this encounter
--- OUTSIDE RECORDS SUMMARY | 2025-02-04 14:52 | XMS_ITS | Encounter Summary ---
Author Organization [facility] Address [facility] [place] [address] Care Team Providers Care Cyber Incident Analyst Name Role Phone Renato Dale MD Primary Care Provider [phone] Stu Shepherd MD Unavailable [phone] Kusum Dinero RN Unavailable [phone] Troy Avalos MD Primary Care Provider [phone] Reason for Referral * Surgical (Routine) - Closed Specialty Diagnoses / Procedures Referred By Brielle t Referred To Contact Procedures Case request operating room: RADIOFREQUENCY LUMBAR l2, 3, 4 Blossom Mcgee MD [facility] [address] [place] [address] Phone: tel: fax: Referral ID Status Reason Start Date Expiration Date Visits Re quested Visits Authorized [id number] Closed 12/30/2017 01/29/2019 1 1 Encounter Details Date Type Department Care Team (Late st Contact Info) Description 12/30/2017 Prep for Procedure [facility] [place] [address] [id number] Blossom Mcgee MD [facility] [address] [place] [address] Social History Tobacco Use Types Packs/Day Years Used Date Smoking Tobacco: Every Day Cigarettes Smokeless Tobacco: Never Comments:rolls own cigarette s Alcohol Use Standard Drinks/Week Comments No 0 [...] Description 02/07/2025 11:00 AM CDT Office Visit [facility], [address] [address] Jose Correia MD 3 [facility] [place] [address] [place] [address] Scheduled Orders Name Type Priority Associated Diagnoses Order Schedule Case request operating room: RADIOFREQUENCY LUMBAR l2, 3, 4 Case Request Routine Once for 1 Occurrences starting 12/30/2017 until 12/30/2017 documented as of this encounter Visit Diagnoses Not on filedocumented in this encounter Additional Health Concerns Infection Onset Date Last Indicated Resolved Time COVID-19 Rule Out 05/06/2022 05/06/2022 05/06/2022 12:01 PM BUTCHER ASSISTANT documented as of this encounter Care Teams Cyber Incident Analyst Relationship Specialty [place] [address] [place] [address] PCP - General FAMILY PRACTICE 12/24/15 04/20/23 Troy Avalos MD [address] [place] [address] PCP - General FAMILY PRACTICE 12/31/24 Stu Shepherd MD [facility]. [facility] [address] [place], [place] [id number] [place] Blender Helper CARDIOVASCULAR DISEASE 11/25/16 Kusum Dinero, RN [address] [place] [address] Unit Leader (Ambulatory) REGISTERED NURSE 03/06/19 05/11/23 documented as of this encounter
--- OUTSIDE RECORDS SUMMARY | 2025-02-04 14:52 | XMS_ITS | Encounter Summary ---
Author Organization [facility] Address [facility] [place] [address] Care Team Providers Care Die Welder Name Role Phone Renato Dale MD Primary Care Provider [phone] Stu Shepherd MD Unavailable [phone] Kusum Dinero RN Unavailable [phone] Troy Avalos MD Primary Care Provider [phone] Encounter Details Date Type Department Care Team (Late st Contact Info) Description 01/31/2023 UniServityt Message Enc [facility] Medical Group Family & Internal Medicine [facility] [address] [place] [address] [place] [address] [place] [address] Wegovy Social History Tobacco Use Types Packs/Day Years [...] place to sleep or slept in a mcc (including now)? No 06/15/2022 Education Answer Date [...] 02/07/2025 11:00 AM CDT Office Visit [facility] [facility], [place] [place] [address] Jose Correia MD 3 [facility] [address] [place] [address] documented as of this encounter Goals Goal Patient Goal Type Associated Problems Recent Progress Patient-Stated? Author Reduce Sodium Intake Diet On track(2022 1:41 PM CDT) Kusum Ferrell RN Note: 03/09/22: Patient continues to watch sodium intake of no more than 2,000 mg sodium diet daily. Establish Regular Follow-Ups with PCP / Cardiology General On track(2022 3:11 PM LAW FIRM ADMINISTRATOR) Kusum Ferrell, RN Note: 10/06/22: confirmed appointment with on 11/23/22. 08/17/22: Patient will f/u with on 08/24/22 and Finisher Brush the last week of July. She did not have date available during call. Establish Plan for Symptom Monitoring- HF General On track(2022 3:11 PM LAW FIRM ADMINISTRATOR) Kusum Ferrell, RN Note: Patient will recognize symptoms of CHF and report to physician should they occur. Daily weight. Report weight gain of > 3 lbs overnight or > 5 lbs in a week Maintain 64 oz fluid restriction Call physician if you experience worsening shortness of breath, edema, fatigue, or cough 08/17/22: Scheduled to see Finisher Brush at the end of July. Patient is on fluid restriction and doesn't go over 64 ounces. SOB with exertion and she plans on discussing with Finisher Brush at upcoming appointment since this has been going on for a while now. See note for details. Establish Plan for Symptom Monitoring-HTN General On track(2022 3:11 PM LAW FIRM ADMINISTRATOR) Kusum Ferrell RN Note: Patient will recognize symptoms of hypertension and report to physician should they occur Notify your physician for symptoms of: Severe headache Shortness of breath Nosebleed Severe anxiety Feeling of pulsations in the neck or head Take your medications as prescribed. Follow up with your provider as scheduled. Take your blood pressure at least several times a week if able. 4/18/23: Patient's B/P is stable and no issues to report at this time. Quit smoking Lifestyle Not on track(2022 3:11 PM LAW FIRM ADMINISTRATOR) No Kusum Dinero RN Note: 10/06/22: Patient not ready at this time. 09/08/22: Patient not ready at this time. 03/09/22: Educated on smoking cessation. Patient declines at this time. Stated she is not ready. Manage anxiety Lifestyle On track(2022 3:11 PM LAW FIRM ADMINISTRATOR) No Kusum Dinero, RN Note: 10/06/22: Patient taking medication as prescribed. Sets an alarm but sometimes forgets to take lunch time dose. See note for details. documented as of this encounter Visit Diagnoses Not on filedocumented in this encounter Additional Health Concerns Assessment Noted Time PHQ-9 Depression Total Score: 0 07/17/19 22 1:33 PM CDT documented as of this encounter Care Teams Die Welder Relationship Specialty [place] [address] [place] [address] PCP - General FAMILY PRACTICE 12/24/15 04/20/23 Troy Avalos MD [address] [place] [address] PCP - General FAMILY PRACTICE 12/31/24 Stu Shepherd MD [facility] [address] [place], [place] [id number] [place] Finisher Brush CARDIOVASCULAR DISEASE 11/25/16 Kusum Dinero, RN [address] [place] [address] Farmworker General (Ambulatory) REGISTERED NURSE 03/06/19 05/11/23 documented as of this encounter
--- OUTSIDE RECORDS SUMMARY | 2025-02-04 14:52 | XMS_ITS | Encounter Summary ---
Author Organization [facility] Address [facility] [place] [address] Care Team Providers Care Acoustical Material Worker Name Role Phone Renato Dale MD Primary Care Provider [phone] Stu Shepherd MD Unavailable [phone] Kusum Dinero RN Unavailable [phone] Troy Avalos MD Primary Care Provider [phone] Encounter Details Date Type Department Care Team (Late st Contact Info) Description 12/10/2022 Devariot Message Enc [facility] Medical Group Family & Internal Medicine [facility] [address] [place] [address] [place] [address] [place] [address] Weight loss shot Social History Tobacco Use Types Packs/Day Years [...] place to sleep or slept in a group home (including now)? No 06/15/2022 Education Answer Date [...] on file documented as of this encounter Progress Notes * Lesly Petit RN - 12/10/2022 11:28 AM CDT Message printed and given to provider * Lesly Petit RN - 12/10/2022 11:27 AM CDT Disregard message * Lesly Petit RN - 12/10/2022 11:27 AM CDT Please advise documented in this encounter Plan of Treatment Upcoming Encounters Date Type Department Care Team (Late st Contact Info) Description 02/07/2025 11:00 AM CDT Office Visit [facility] [address] [facility] [address], [place] [address] [place] [id number] Jose Correia MD 3 [facility] [place] [address] [facility] [address] [place], [place] [id number] documented as of this encounter Goals Goal Patient Goal Type Associated Problems Recent Progress Patient-Stated? Author Reduce Sodium Intake Diet On track(2022 1:41 PM CDT) No Kusum Dinero RN Note: 03/09/22: Patient continues to watch sodium intake of no more than 2,000 mg sodium diet daily. Establish Regular Follow-Ups with PCP / Cardiology General On track(2022 3:11 PM DESPATCH CLERK) Kusum Ferrell RN Note: 10/06/22: confirmed appointment with on 11/23/22. 08/17/22: Patient will f/u with on 08/24/22 and Insulation Cupola Operator the last week of July. She did not have date available during call. Establish Plan for Symptom Monitoring- HF General On track(2022 3:11 PM DESPATCH CLERK) Kusum Ferrell RN Note: Patient will recognize symptoms of CHF and report to physician should they occur. Daily weight. Report weight gain of > 3 lbs overnight or > 5 lbs in a week Maintain 64 oz fluid restriction Call physician if you experience worsening shortness of breath, edema, fatigue, or cough 08/17/22: Scheduled to see Insulation Cupola Operator at the end of July. Patient is on fluid restriction and doesn't go over 64 ounces. SOB with exertion and she plans on discussing with Insulation Cupola Operator at upcoming appointment since this has been going on for a while now. See note for details. Establish Plan for Symptom Monitoring-HTN General On track(2022 3:11 PM DESPATCH CLERK) Kusum Ferrell, RN Note: Patient will recognize [...] smoking Lifestyle Not on track(2022 3:11 PM DESPATCH CLERK) Kusum Ferrell, RN Note: 10/06/22: Patient not ready at this time. 09/08/22: Patient not ready at this time. 03/09/22: Educated on smoking cessation. Patient declines at this time. Stated she is not ready. Manage anxiety Lifestyle On track(2022 3:11 PM DESPATCH CLERK) Kusum Ferrell RN Note: 10/06/22: Patient taking medication as prescribed. Sets an alarm but sometimes forgets to take lunch time dose. See note for details. documented as of this encounter Visit Diagnoses Not on filedocumented in this encounter Additional Health Concerns Assessment Noted Time PHQ-9 Depression Total Score: 0 07/17/19 22 1:33 PM CDT documented as of this encounter Care Teams Acoustical Material Worker Relationship Specialty [place] [address] [place] [address] PCP - General FAMILY PRACTICE 12/24/15 04/20/23 Troy Avalos MD [address] [place], [place] [id number] PCP - General FAMILY PRACTICE 12/31/24 Stu Shepherd MD [facility] [address] [place] [address] [place] Insulation Cupola Operator CARDIOVASCULAR DISEASE 11/25/16 Kusum Dinero, RN [address] [place] [address] Nurses' Aide (Ambulatory) REGISTERED NURSE 03/06/19 05/11/23 documented as of this encounter
--- OUTSIDE RECORDS SUMMARY | 2025-02-04 14:52 | XMS_ITS | Encounter Summary ---
Author Organization [facility] Address [facility] [place] [address] Care Team Providers Care Walnut Dehydrator Operator Name Role Phone Renato Dale MD Primary Care Provider [phone] Stu Shepherd MD Unavailable [phone] Kusum Dinero RN Unavailable [phone] Troy Avalos MD Primary Care Provider [phone] Encounter Details Date Type Department Care Team (Late st Contact Info) Description 02/07/2023 Brightleaft Message Enc [facility] Medical Group Family & Internal Medicine [facility] [address] [place] [address] [place] [address] [place] [address] ER Social History Tobacco Use Types Packs/Day Years [...] 02/07/2025 11:00 AM CDT Office Visit [facility] THREE [facility], [facility] [address] [place] [address] Jose Correia MD 3 [facility] [address] [place], [place] [phone] documented as of this encounter Goals Goal Patient Goal Type Associated Problems Recent Progress Patient-Stated? Author Reduce Sodium Intake Diet On track(2022 1:41 PM CDT) Kusum Ferrell RN Note: 03/09/22: Patient continues to watch sodium intake of no more than 2,000 mg sodium diet daily. Establish Regular Follow-Ups with PCP / Cardiology General On track(2022 3:11 PM CENTERLESS GRINDER) Kusum Ferrell, RN Note: 10/06/22: confirmed appointment with on 11/23/22. 08/17/22: Patient will f/u with on 08/24/22 and Precision Grinder the last week of July. She did not have date available during call. Establish Plan for Symptom Monitoring- HF General On track(2022 3:11 PM CENTERLESS GRINDER) Kusum Ferrell, RN Note: Patient will recognize symptoms of CHF and report to physician should they occur. Daily weight. Report weight gain of > 3 lbs overnight or > 5 lbs in a week Maintain 64 oz fluid restriction Call physician if you experience worsening shortness of breath, edema, fatigue, or cough 08/17/22: Scheduled to see Precision Grinder at the end of July. Patient is on fluid restriction and doesn't go over 64 ounces. SOB with exertion and she plans on discussing with Precision Grinder at upcoming appointment since this has been going on for a while now. See note for details. Establish Plan for Symptom Monitoring-HTN General On track(2022 3:11 PM CENTERLESS GRINDER) Kusum Ferrell RN Note: Patient will recognize [...] smoking Lifestyle Not on track(2022 3:11 PM CENTERLESS GRINDER) No Kusum Dinero RN Note: 10/06/22: Patient not ready at this time. 09/08/22: Patient not ready at this time. 03/09/22: Educated on smoking cessation. Patient declines at this time. Stated she is not ready. Manage anxiety Lifestyle On track(2022 3:11 PM CENTERLESS GRINDER) No Kusum Dinero, RN Note: 10/06/22: Patient taking medication as prescribed. Sets an alarm but sometimes forgets to take lunch time dose. See note for details. documented as of this encounter Visit Diagnoses Not on filedocumented in this encounter Additional Health Concerns Assessment Noted Time PHQ-9 Depression Total Score: 0 07/17/19 22 1:33 PM CDT documented as of this encounter Care Teams Walnut Dehydrator Operator Relationship Specialty [place] [address] [place] [address] PCP - General FAMILY PRACTICE 12/24/15 04/20/23 Troy Avalos MD [address] [place], [place] [phone] PCP - General FAMILY PRACTICE 12/31/24 Stu Shepherd MD [facility]. [facility] [address] [place] [address] [place] Precision Grinder CARDIOVASCULAR DISEASE 11/25/16 Kusum Dinero, RN [address] [place] [address] Retail Pharmacy Manager (Ambulatory) REGISTERED NURSE 03/06/19 05/11/23 documented as of this encounter
--- OUTSIDE RECORDS SUMMARY | 2025-02-04 14:53 | XMS_ITS | Encounter Summary ---
Author Organization [facility] Address [facility] [place] [address] Care Team Providers Care Township Clerk Name Role Phone Renato Dale MD Primary Care Provider [phone] Stu Shepherd MD Unavailable [phone] Kusum Dinero RN Unavailable [phone] Troy Avalos MD Primary Care Provider [phone] Encounter Details Date Type Department Care Team (Late st Contact Info) Description 12/16/2022 Sutro Biopharmat Message Enc [facility] Medical Group Family & Internal Medicine [facility] [address] [place] [address] [place] [address] [place] [address] Hurting Social History Tobacco Use Types Packs/Day Years [...] place to sleep or slept in a chcf (including now)? No 06/15/2022 Education Answer Date [...] 02/07/2025 11:00 AM CDT Office Visit [facility] THREE [facility], [facility] [address] [place] [address] Jose Correia MD 3 [facility] [address] [place] [address] documented as of this encounter Goals Goal Patient Goal Type Associated Problems Recent Progress Patient-Stated? Author Reduce Sodium Intake Diet On track(2022 1:41 PM CDT) Kusum Ferrell RN Note: 03/09/22: Patient continues to watch sodium intake of no more than 2,000 mg sodium diet daily. Establish Regular Follow-Ups with PCP / Cardiology General On track(2022 3:11 PM ANIMATION ARTIST) Kusum Ferrell, RN Note: 10/06/22: confirmed appointment with on 11/23/22. 08/17/22: Patient will f/u with on 08/24/22 and Intervention Nurse the last week of July. She did not have date available during call. Establish Plan for Symptom Monitoring- HF General On track(2022 3:11 PM ANIMATION ARTIST) Kusum Ferrell, RN Note: Patient will recognize symptoms of CHF and report to physician should they occur. Daily weight. Report weight gain of > 3 lbs overnight or > 5 lbs in a week Maintain 64 oz fluid restriction Call physician if you experience worsening shortness of breath, edema, fatigue, or cough 08/17/22: Scheduled to see Intervention Nurse at the end of July. Patient is on fluid restriction and doesn't go over 64 ounces. SOB with exertion and she plans on discussing with Intervention Nurse at upcoming appointment since this has been going on for a while now. See note for details. Establish Plan for Symptom Monitoring-HTN General On track(2022 3:11 PM ANIMATION ARTIST) Kusum Ferrell RN Note: Patient will recognize [...] smoking Lifestyle Not on track(2022 3:11 PM ANIMATION ARTIST) No Kusum Dinero RN Note: 10/06/22: Patient not ready at this time. 09/08/22: Patient not ready at this time. 03/09/22: Educated on smoking cessation. Patient declines at this time. Stated she is not ready. Manage anxiety Lifestyle On track(2022 3:11 PM ANIMATION ARTIST) No Kusum Dinero, RN Note: 10/06/22: Patient taking medication as prescribed. Sets an alarm but sometimes forgets to take lunch time dose. See note for details. documented as of this encounter Visit Diagnoses Not on filedocumented in this encounter Additional Health Concerns Assessment Noted Time PHQ-9 Depression Total Score: 0 07/17/19 22 1:33 PM CDT documented as of this encounter Care Teams Township Clerk Relationship Specialty [place] [address] [place] [address] PCP - General FAMILY PRACTICE 12/24/15 04/20/23 Troy Avalos MD [address] [place], [place] [phone] PCP - General FAMILY PRACTICE 12/31/24 Stu Shepherd MD [facility]. [facility] [address] [place] [address] [place] Intervention Nurse CARDIOVASCULAR DISEASE 11/25/16 Kusum Dinero, RN [address] [place] [address] Value Analyst (Ambulatory) REGISTERED NURSE 03/06/19 05/11/23 documented as of this encounter
--- OUTSIDE RECORDS SUMMARY | 2025-02-04 14:53 | XMS_ITS | Encounter Summary ---
Author Organization [facility] Address [facility] [place] [address] Care Team Providers Care Retail Event Assistant Name Role Phone Renato Dale MD Primary Care Provider [phone] Stu Shepherd MD Unavailable [phone] Kusum Dinero RN Unavailable [phone] Troy Avalos MD Primary Care Provider [phone] Encounter Details Date Type Department Care Team (Late st Contact Info) Description 01/29/2022 VideoBurstt Message Enc [facility] Medical Group Orthopaedic Surgery-[place] [address] [place] [address] [place] [address] [place] [address] Question regarding MRI ARTHRO SHOULDER [address] Social History Tobacco Use Types Packs/Day Years Used Date Smoking Tobacco: Every Day Cigarettes 1 43.8 Started: 1979 Smokeless Tobacco: Never Comments:not ready to quit; pcp to educate Alcohol Use Standard Drinks/Week Comments Yes 0 (1 standard drink = 0.6 oz pur e alcohol) very rare AUDIT-C Answer Date Recorded Q1: How often do you have a drink containing alc ohol? Monthly or less 11/09/2019 Average Number of Drinks Not on file 020 Frequency of Binge Drinking Not on file 10/30 PHQ-2 Answer Date Recorded PHQ-2 Score - If the patient scores above 3, please move on to questions 3-9 0 07/16/2021 Education Answer Date Recorded What is the [...] suspected to have Coronavirus/COVID-19? No / Unsure 01/29/2022 9:52 AM CDT documented as of this encounter Plan of Treatment Upcoming Encounters Date Type Department Care Team (Late st Contact Info) Description 02/07/2025 11:00 AM CDT Office Visit [facility] [address] [facility] [address], [place] [address] [place] [phone] Jose Correia MD 3 [facility] [place] [address] [place] [phone] documented as of this encounter Goals Goal Patient Goal Type Associated Problems Recent Progress Patient-Stated? Author Reduce Sodium Intake Diet On track(2022 1:41 PM CDT) Kusum Ferrell, ROBERT Note: 03/09/22: Patient continues to watch sodium intake of no more than 2,000 mg sodium diet daily. Establish Regular Follow-Ups with PCP / Cardiology General On track(2022 3:11 PM CHIEF CONTROLLER STATION) Kusum Ferrell, RN Note: 10/06/22: confirmed appointment with on 11/23/22. 08/17/22: Patient will f/u with on 08/24/22 and Master At Arms the last week of July. She did not have date available during call. Establish Plan for Symptom Monitoring- HF General On track(2022 3:11 PM CHIEF CONTROLLER STATION) Kusum Ferrell RN Note: Patient will recognize symptoms of CHF and report to physician should they occur. Daily weight. Report weight gain of > 3 lbs overnight or > 5 lbs in a week Maintain 64 oz fluid restriction Call physician if you experience worsening shortness of breath, edema, fatigue, or cough 08/17/22: Scheduled to see Master At Arms at the end of July. Patient is on fluid restriction and doesn't go over 64 ounces. SOB with exertion and she plans on discussing with Master At Arms at upcoming appointment since this has been going on for a while now. See note for details. Establish Plan for Symptom Monitoring-HTN General On track(2022 3:11 PM CHIEF CONTROLLER STATION) Kusum Ferrell RN Note: Patient will recognize [...] smoking Lifestyle Not on track(2022 3:11 PM CHIEF CONTROLLER STATION) Kusum Ferrell RN Note: 10/06/22: Patient not ready at this time. 09/08/22: Patient not ready at this time. 03/09/22: Educated on smoking cessation. Patient declines at this time. Stated she is not ready. documented as of this encounter Visit Diagnoses Not on filedocumented in this encounter Additional Health Concerns Infection Onset Date Last Indicated Resolved Time COVID-19 Rule Out 05/06/2022 05/06/2022 05/06/2022 12:01 PM CHIEF CONTROLLER STATION Assessment Noted Time PHQ-9 Depression Total Score: 0 07/17/19 22 1:33 PM CDT documented as of this encounter Care Teams Retail Event Assistant Relationship Specialty [place] [address] [place] [address] PCP - General FAMILY PRACTICE 12/24/15 04/20/23 Troy Avalos MD [address] [place] [address] PCP - General FAMILY PRACTICE 12/31/24 Stu Shepherd MD [facility] [address] [place] [address] [place] Master At Arms CARDIOVASCULAR DISEASE 11/25/16 Kusum Dinero, RN [address] [place] [address] Geometry Teacher (Ambulatory) REGISTERED NURSE 03/06/19 05/11/23 documented as of this encounter
--- OUTSIDE RECORDS SUMMARY | 2025-02-04 14:53 | XMS_ITS | Encounter Summary ---
Author Organization [facility] Address [facility] access hospital[address] [place] [address] Care Team Providers Care Sales Representative [employer] Name Role Phone Renato Dale MD Primary Care Provider [phone] Stu Shepherd MD Unavailable [phone] Kusum Dinero RN Unavailable [phone] Troy Avalos MD Primary Care Provider [phone] Encounter Details Date Type Department Care Team (Late st Contact Info) Description 12/11/2021 Glocalt Message Enc [facility] [address] [place] [address] [place] [address] [place] [address] Question regarding CBC W/DIFF AUTOMATED Social History Tobacco Use Types Packs/Day Years [...] suspected to have Coronavirus/COVID-19? No / Unsure 12/11/2021 9:29 AM CDT documented as of this encounter Plan of Treatment Upcoming Encounters Date Type Department Care Team (Late st Contact Info) Description 02/07/2025 11:00 AM CDT [facility] Visit [facility] [address], [place] [address] [place] [address] [phone] Jose Correia MD [address] [facility] [place] [address] [place] [address] [phone] documented as of this encounter Goals Goal Patient Goal Type Associated Problems Recent Progress Patient-Stated? Author Reduce Sodium Intake Diet On track(2022 1:41 PM CDT) Kusum Ferrell, RN Note: 03/09/22: Patient continues to watch sodium intake of no more than 2,000 mg sodium diet daily. Establish Regular Follow-Ups with PCP / Cardiology General On track(2022 3:11 PM TECHNICAL TRAINING INSTRUCTOR) Kusum Ferrell, RN Note: 10/06/22: confirmed appointment with on 11/23/22. 08/17/22: Patient will f/u with on 08/24/22 and Stamping Die Maker the last week of July. She did not have date available during call. Establish Plan for Symptom Monitoring- HF General On track(2022 3:11 PM TECHNICAL TRAINING INSTRUCTOR) Kusum Ferrell RN Note: Patient will recognize symptoms of CHF and report to physician should they occur. Daily weight. Report weight gain of > 3 lbs overnight or > 5 lbs in a week Maintain 64 oz fluid restriction Call physician if you experience worsening shortness of breath, edema, fatigue, or cough 08/17/22: Scheduled to see Stamping Die Maker at the end of July. Patient is on fluid restriction and doesn't go over 64 ounces. SOB with exertion and she plans on discussing with Stamping Die Maker at upcoming appointment since this has been going on for a while now. See note for details. Establish Plan for Symptom Monitoring-HTN General On track(2022 3:11 PM TECHNICAL TRAINING INSTRUCTOR) Kusum Ferrell RN Note: Patient will recognize [...] smoking Lifestyle Not on track(2022 3:11 PM TECHNICAL TRAINING INSTRUCTOR) Kusum Ferrell RN Note: 10/06/22: Patient not [...] Rule Out 05/06/2022 05/06/2022 05/06/2022 12:01 PM TECHNICAL TRAINING INSTRUCTOR Assessment Noted Time PHQ-9 Depression Total Score: 0 07/17/19 22 1:33 PM CDT documented as of this encounter Care Teams Sales Representative [employer] Relationship Specialty [place] [address] [place] [address] PCP - General FAMILY PRACTICE 12/24/15 04/20/23 Troy Avalos MD [address] [place] [address] PCP - General FAMILY PRACTICE 12/31/24 Stu Shepherd MD [facility] [address] [place] [address] [place] [employer] Maker CARDIOVASCULAR DISEASE 11/25/16 Kusum Dinero, RN [address] [place] [address] Tubular Splitting Machine Tender (Ambulatory) REGISTERED NURSE 03/06/19 05/11/23 documented as of this encounter
--- OUTSIDE RECORDS SUMMARY | 2025-02-04 14:53 | XMS_ITS | Clinical Summary ---
Author Organization [facility] Address [address] [place] [address] Care Team Providers Care Stove Mechanic Name Role Phone Troy Avalos MD Primary Care Provider [phone] Allergies Active Allergy Reactions Criticality Noted Date Comments Fpkfifz-Cyn-Doe Reductase Inhibitors Other (See comments) Low 11/14/2020 rhabdomyolysis Medications omeprazole (PriLOSEC) 40 mg capsuleIndications:S ymptomatic Gastroesophageal Reflux Disease Take 1 capsule (40 mg total) by mouth every evening 07/11/19 19 Active XARELTO 15 mg tabletIndications:hx of DVT Take 1 tablet (15 mg total) by mouth daily with dinner 0 01/20/20 19 Active sertraline (ZOLOFT) 100 mg tabletIndications:an xiety Take 1.5 tablets (150 mg total) by mouth nightly Active busPIRone (BUSPAR) 15 mg tabletIndications:Ge neralized Anxiety Disorder Take 1 tablet (15 mg total) by mouth 3 (three) times a day Active doxycycline (PERIOSTAT) 20 mg tabletIndications:sk in boils Take 2 tablets (40 mg total) by mouth every morning Active ezetimibe (ZETIA) 10 mg tabletIndications:hy perlipidemia Take 1 tablet (10 mg total) by mouth every evening Active hydrOXYzine (ATARAX) 25 mg tabletIndications:an xiety Take 1 tablet (25 mg total) by mouth 2 (two) times a day Active HYDROcodone-acetamin ophen (NORCO) 5-325 mg per tablet Take 1 tablet by mouth every 6 (six) hours as needed for pain 04/06/20 19 Active metFORMIN (GLUCOPHAGE) 500 mg tabletIndications:ty pe 2 diabetes mellitus Take 1 tablet (500 mg total) by mouth every morning Active doxepin (SINEquan) 10 mg capsuleIndications:I nsomnia Take 1 capsule (10 mg total) by mouth nightly Active midodrine (PROAMATINE) 10 mg tabletIndications:Sy mptomatic Orthostatic Hypotension Take 1 tablet (10 mg total) by mouth 3 (three) times a day before meals 90 tablet 1 05/29/19 25 Active furosemide (LASIX) 20 mg tabletIndications:CH F Take 1 tablet (20 mg total) by mouth every morning 07/02/19 25 Active Mounjaro 7.5 mg/0.5 mL pen injector injectionIndications :type 2 diabetes mellitus Inject 0.5 mL (7.5 mg total) under the skin once a week Takes on Wednesdays07/03/19 25 Active diazePAM (VALIUM) 10 mg tablet Take 1 tablet (10 mg total) by mouth nightly as needed for sedation 07/12/19 25 Active MULTIVITAMIN ORALIndications:supp lement Take 1 tablet/capsule by mouth every morning Active HYDROcodone-acetamin ophen (NORCO) 5-325 mg per tabletIndications:Pa in Take 1 tablet by mouth every 6 (six) hours as needed for pain 15 tablet 08/23/19 25 Active nicotine (NICODERM CQ) [address] 1 patch on the skin daily for 24 hours 28 patch 08/31/19 25 Active rosuvastatin (CRESTOR) 20 mg tablet Take 1 tablet (20 mg total) by mouth daily 11/05/19 25 Active gabapentin (NEURONTIN) 100 mg capsule Take 1 capsule (100 mg total) by mouth 2 (two) times a day 180 capsule 01/11/20 25 Active Hospital, Clinic, or Other Facility Administered Medication Ordered Dose Route Frequency Start Date End Date Status onabotulinumtoxin A (BOTOX) injection 5 UnitsIndications:Sialor ant,Sialocele 5 Units OTHER Every 30 days 09/24/2024 01/22/2025 Ended Active Problems Problem Noted Date Diagnosed Date On continuous oral anticoagulation 11/23/2024 LORETTA (obstructive sleep apnea) 10/25/2024 Dysphonia 07/11/2024 Assessment & Plan (07/11/2024 3:11 PM CDT): Voice rest when possible Smoking cessation discussed [place] Smoking Cessation Hotline: 7-846-DGGJ-YES 64 ounces of caffeine free and soda free fluid daily 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 Assessment & Plan (07/11/2024 3:11 PM CDT): Voice rest when possible Smoking cessation discussed [place] Smoking Cessation Hotline: 5-631-NBIC-YES 64 ounces of caffeine free and soda free fluid daily Parotid sialadenitis 05/31/2024 Hypotension, unspecified hypotension type 2024 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 Assessment & Plan (02/21/2024 9:01 AM CDT): Discussed Observation versus FNA, versus Surgical removal and decision today was to proceed with Parotidectomy [facility] or [place], [place] Bilateral carotid artery stenosis 10/17/2019 Smoker 10/17/2019 History of deep vein thrombosis (DVT) of lower e xtremity 10/17/2019 Palpitations 10/17/2019 Facial numbness 02/05/2019 Chest pain 02/05/2019 Recurrent deep vein thrombosis (DVT) 02/05/2019 Effusion of joint of ankle AND/OR foot 3 Overview (08/04/2016): Swelling of joint of ankle or foot Gastroesophageal reflux disease 12/25/2012 Overview (08/04/2016): Acid reflux Ataxia Neuritis Essential hypertension Resolved Problems Problem Noted Date Diagnosed Date Resolved Date Cigarette nicotine dependenc e without complication 02/05/2019 10/17/2019 Encounters Date Type Department Care Team Description 01/10/2025 9:00 AM CDT [facility] [id number] [facility] [address] [place] [address] Tianna Louie MD Warthin's tumor (Primary Dx); Hyperalgesia; History of superficial parotidectomy 11/23/2024 2:15 PM CDT Office Visit [facility] at [address] [place] [address] Brooke Stern MD Chronic diastolic congestive heart failure (HCC) (Primary Dx); History of deep vein thrombosis (DVT) of lower extremity; LORETTA (obstructive sleep apnea); Recurrent deep vein thrombosis (DVT) (HCC); Other chronic pulmonary embolism, unspecified whether acute cor pulmonale present (HCC) from Last 3 Months Immunizations Immunization Administration Dates Next Due Pfizer SARS-CoV-2 Monovalent Vaccination (12+ Yrs) PURPLE 08/25/2020,07/28/2020 Surgical History Surgery Date Site/Laterality Comments TENDON REPAIR 05/02/2001 - 05/01/2002 Left left arm; tendon repair OTHER SURGICAL HISTORY laproscopic- scar tissue removed from abdominal wall; SKIN BIOPSY Right right leg lymphoma removed; EYE SURGERY Bilateral laser eye surgery for high pressure; unknown date TUBAL LIGATION 05/02/1984 - 05/01/1985 KNEE ARTHROSCOPY W/ MENISCECTOMY Left x2; early CARPAL TUNNEL RELEASE Bilateral 2010s Medical History Medical History Date Comments Hypertension DVT (deep venous thrombosis) Cancer (HCC) skin ca removed , uterine cells removed Smoking Peptic ulceration Gastric reflux Clotting disorder GERD (gastroesophageal reflux disease) 2010 Sleep apnea 2012 Diabetes mellitus 2023 Family History Medical History Relation Name Comments Cancer Brother 1 Lew Hearing loss Brother 1 Lew Hypertension Brother 1 Lew Stroke Brother 1 Lew Diabetes Brother 2 Get Rashes / Skin problems Brother 2 Get Sleep apnea Brother 2 Get Sleep apnea Brother 3 Ayden Snoring Brother 4 Live Cancer Father Fred Cancer; Cause o f : Cancer Heart disease Maternal Grandmother Janie COPD Mother Bernarda Cancer Mother Bernarda Hypertension Mother Bernarda Hypertension; Osteoarthritis Mother Bernarda Other Mother Bernarda Cancer / COPD; Cause of : Cancer / COPD/Light stroke; Diabetes Other 1 Family Hx Diabetes mellit us; Arthritis Other 2 Family hx Arthritis; Diabetes Paternal Grandmother Kelsi Heart disease Paternal Grandmother Kelsi Heart failure Paternal Grandmother Kelsi Breast cancer Paternal Great-Grandmother Anesthesia problems Neg Hx Malig Hyperthermia Neg Hx Ovarian cancer Neg Hx Pseudochol deficiency Neg Hx Thyroid cancer Neg Hx Relation Name Status Comments Brother 1 Lew Brother 2 Get Brother 3 Ayden Brother 4 Live Father Fred (Age 54) Maternal Grandmother Janie [place] Other 1 Family Hx Alive Other 2 Family hx Alive Paternal Grandmother Kelsi Paternal Great-Grandmother Social History Tobacco Use Types Packs/Day Years Used Date Smoking Tobacco: Every Day Cigarettes 1 41.8 Started: 1983 Passive Smoke Exposure: Past Smokeless Tobacco: Never Tobacco Cessation:Ready to Q uit: Not Asked; Counseling Given: Not Answered Alcohol Use Standard Drinks/Week Comments Yes 0 (1 standard drink = 0.6 oz pur e alcohol) occasional [facility] Utilities Answer Date Recorded In the past 12 months has [employer], gas, oil, or water [employer] threatened to shut off services in your home? No 05/28/2024 Social Connection and Isolation Panel Answer Date Recorded In a typical week, how many times do you talk on the phone with family, friends, or neighbors? More than three times a week 05/28/2024 How often do you get togethe r with friends or relatives? Twice a week 05/28/2024 How often do you attend [facility] or evangelical services? 1 to 4 times per year 05/28/2024 Do you belong to any clubs o r organizations such as tenriism groups, unions, fraternal or athletic groups, or school groups? No 05/28/2024 How often do you attend meet ings of the clubs or organizations you belong to? Never 05/28/2024 Are you , , di vorced, , never , or living with a partner? 05/28/2024 AUDIT-C Answer Date Recorded Q1: How often do you have a drink containing alcohol? Never 08/22/2024 Q2: How many drinks containi ng alcohol do you have on a typical day when you are drinking? Patient does not drink Q3: How often do you have si x or more drinks on one occasion? Never 08/22/2024 Overall Financial Resource Strain (CARDIA) Answe r Date Recorded How hard is it for you to pa y for the very basics like food, housing, medical care, and heating? Very hard 05/28/2024 PHQ-2 Answer Date Recorded PHQ-2 Score 0 02/05/2019 Hunger Vital Sign Answer Date Recorded Within the past 12 months, y ou worried that your food would run out before you got the money to buy more. Never true 01/27/20 25 Within the past 12 months, t he food you bought just didn't last and you didn't have money to get more. Often true 05/28/2024 PRAPARE - Transportation Answer Date Re corded In the past 12 months, has l ack of transportation kept you from medical appointments or from getting medications? No 05/03 In the past 12 months, has l ack of transportation kept you from meetings, work, or from getting things needed for daily living? No 05/28/2024 Housing Stability Vital Sign Answer Tariq e Recorded In the last 12 months, was t here a time when you were not able to pay the mortgage or rent on time? No 05/28/2024 In the past 12 months, how m any times have you moved where you were living? 0 05/28/2024 At any time in the past 12 m [facility], were you homeless or living in a group home (including now)? No 05/28/2024 Personal Safety Answer Date Recorded Have you ever been in or are you currently in a harmful physical or emotional relationship or is someone making you feel afraid or unsafe? Denies 08/22/2024 Comments No Sex and Gender Information Value Date Recorded Sex Assigned at Not on file Legal Sex Female 2:02 PM LANDSCAPE DRAFTER Gender Identity Female 09/20/2023 3:08 PM CDT Sexual Orientation Straight 09/20/2023 3: 08 PM CDT Obstetrics History Para Term AB IAB SAB Ectopic Multiple Livin g Live Births 2 2 2 Date Outcome GA Total Labor Labor/2nd/3rd Weight Sex Type Anes PTL Sravanthi A1 A5 Name Clin Term Term Last Filed Vital Signs Vital Sign Reading Time Taken Comments Blood Pressure 111/62 11/23/2024 2:16 PM CDT Pulse 102 11/23/2024 2:16 PM CDT Temperature 36 C (96.8 F) 08/22/2024 11:17 AM CDT Respiratory Rate 10 08/22/2024 12:40 PM CDT Oxygen Saturation 96% 09/20/2024 10:42 AM CDT Inhaled Oxygen Concentration - - Weight 71.2 kg (157 lb) 01/10/2025 8:45 AM CDT Height 167.6 cm (5' 6) 01/10/2025 8:45 AM CDT Body Mass Index 25.34 01/10/2025 8:45 AM CDT Plan of Treatment Health Maintenance Due Date Last Done Comments Cervical Cancer Screening 1962 Colon Cancer Screening-Colonoscopy 1962 Hepatitis C Screening 1962 DTaP/Tdap/Td Vaccine (1 - Tdap) 1973 Hepatitis B Screening 02/03/1980 Regular Well Visit/Exam 18-64 02/03/1980 Pneumococcal vaccine <65 (1 of 2 - PCV) 1981 Depression Screening 02/06/2020 02/05/2019 Breast Cancer Screening-Mammogram 05/01/2022 05/01/2021, 06/29/2019, 01/07/2016 Zoster Vaccine (2 of 2) 06/06/2023 04/11/2023 Covid-19 Vaccine (3 - season) 2024, 07/28/2020 Influenza Vaccine (#1) 2024 , 03/03/2015, 05/16/2014 Lung Cancer Screening 05/13/2025 05/12/2024 , 10/15/2023, 09/06/2022 Procedures Procedure Name Priority Date/Time Associated Diagnosis Comments CT CHEST WO CONTRAST F/U LUNG SCREEN PROTOCOL Schedule Routine, Read Routine (OP Routine) 05/12/2024 11:38 AM LANDSCAPE DRAFTER Lung nodule SCREENING MAMMOGRAM BILATERAL W SHERMAN Schedule Routine, Read Routine (OP Routine) 05/01/2021 12:28 PM LANDSCAPE DRAFTER Encounter for screening mammogram for malignant neoplasm of breast from Last 3 Months or Most Recently Relevant to Health Maintenance Results * CT Chest WO Contrast F/U Lung Screen Protocol (05/12/2024 11:38 AM LANDSCAPE DRAFTER) Anatomical Region Laterality Modality Chest N/A Computed Tomogra phy 05/14/2024 8:28 AM LANDSCAPE DRAFTER Narrative 05/14/2024 8:34 AM LANDSCAPE DRAFTER EXAM DESCRIPTION: CT CHEST WO CONTRAST F/U LUNG SCREEN PROTOCOL REASON FOR STUDY: Screening CT of the chest in a current smoker with a 46 pack year smoking history. Additional history: Prior exam was characterized as a Lung rads 3 with scattered pulmonary nodules measuring up to 0.5 cm.. TECHNIQUE: Low dose CT scan of the chest was performed without intravenous contrast using helical scanning technique. The exam extends from the lung apices through the lung bases. Automatic exposure control was used as a dose optimization technique. NOTE: This study was performed for the specific purposes of lung cancer screening and is not an alternative to diagnostic chest CT. RADIATION DOSE: CT dose index volume (CTDIvol) = 1.41 mGy COMPARISON: 10/15/2023 FINDINGS: SMOKING RELATED LUNG DISEASE: There are mild emphysematous changes of the lungs with scattered mild subsegmental atelectasis and scarring. There is redemonstration of mosaic attenuation of the bilateral lungs, which is likely related to air trapping/reactive small airways disease. There is no definite evidence of a pneumothorax. The central airways are grossly patent. There is scattered subtle mild bronchial wall thickening, which is likely related to mild chronic bronchitis/bronchiolitis. There is no definite evidence of focal consolidation or pleural effusion. LUNG NODULES: There are scattered pulmonary nodules noted, similar to the prior study. For example, there is a stable 0.3 cm pulmonary nodule in the posterior right upper lobe (axial image 60). There is stable 0.3 cm pulmonary nodule in the lateral right upper lobe (axial image 62). There is a stable subpleural 0.5 cm right lower lobe pulmonary nodule (axial image 147). There is a stable subtle subpleural 0.3 cm left lower lobe pulmonary nodule (axial image 105). There is a stable 0.4 cm pulmonary nodule in the medial left lower lobe (axial image 156). CORONARY ARTERY CALCIFICATION: Present. OTHER: The heart size is stable. There is no definite evidence of pericardial effusion. There are minimal atherosclerotic changes of the coronary vessels. There are mild atherosclerotic changes of the thoracic aorta. There is no definite unenhanced CT evidence of mediastinal, hilar, or axillary lymphadenopathy. There are scattered subcentimeter mediastinal lymph nodes noted with largest measuring 0.7 cm in the subcarinal region (axial image 130). The bilateral adrenal glands are grossly stable and unremarkable. There is a stable cyst in the posterior right hepatic lobe measuring 2.5 cm, which does not require follow-up imaging. There is a minimal to mild levoscoliotic curvature of the spine with degenerative changes. IMPRESSION: Redemonstration of scattered small pulmonary nodules measuring up to 0.5 cm, similar to the prior study. No definite evidence of a new suspicious pulmonary nodule. Mild emphysematous changes of lungs with scattered mild subsegmental atelectasis and scarring. Redemonstration of mosaic attenuation of the bilateral lungs, which is likely related to air trapping/reactive small airways disease. Scattered subtle mild bronchial wall thickening, which is likely related to mild chronic bronchitis/bronchiolitis. Lung-RADS category 2: Benign appearance or behavior. Recommendation: Low dose Screening CT of chest in 12 months. THIS IS AN ELECTRONICALLY VERIFIED FINAL REPORT 05/14/2024 8:34 AM - Electronically signed by Radha Moreau D.O. PS: PS Report ID: [id number] Reading Location: [place] [address] Procedure Note Radha Moreau, DO - 05/14/2024 EXAM DESCRIPTION: CT CHEST WO CONTRAST F/U LUNG SCREEN PROTOCOL REASON FOR STUDY: Screening CT of the chest in a current smoker with a46 pack year smoking history. Additional history: Prior exam wascharacterized as a Lung rads 3 with scattered pulmonary nodules measuring up to 0.5 cm.. TECHNIQUE: Low dose CT scan of the chest was performed without intravenous contrast using helical scanning technique. The exam extends from the lung apices through the lung bases. Automatic exposure control was used as adose optimization technique. NOTE: This study was performed for the specific purposes of lung cancer screening and is not an alternative to diagnostic chest CT. RADIATION DOSE: CT dose index volume (CTDIvol) = 1.41 mGy COMPARISON: 10/15/2023 FINDINGS: SMOKING RELATED LUNG DISEASE: There are mild emphysematous changes ofthe lungs with scattered mild subsegmental atelectasis and scarring. There is redemonstration of mosaic attenuation of the bilateral lungs, which islikely related to air trapping/reactive small airways disease. There is nodefinite evidence of a pneumothorax. The central airways are grossly patent.There is scattered subtle mild bronchial wall thickening, which is likely relatedto mild chronic bronchitis/bronchiolitis. There is no definite evidence offocal consolidation or pleural effusion. LUNG NODULES: There are scattered pulmonary nodules noted, similar tothe prior study. For example, there is a stable 0.3 cm pulmonary nodule inthe posterior right upper lobe (axial image 60). There is stable 0.3 cmpulmonary nodule in the lateral right upper lobe (axial image 62). There is astable subpleural 0.5 cm right lower lobe pulmonary nodule (axial image 147).There is a stable subtle subpleural 0.3 cm left lower lobe pulmonary nodule(axial image 105). There is a stable 0.4 cm pulmonary nodule in the medial left lower lobe (axial image 156). CORONARY ARTERY CALCIFICATION: Present. OTHER: The heart size is stable. There is no definite evidence of pericardial effusion. There are minimal atherosclerotic changes of the coronary vessels. There are mild atherosclerotic changes of the thoracic aorta. There is no definite unenhanced CT evidence of mediastinal, hilar, oraxillary lymphadenopathy. There are scattered subcentimeter mediastinal lymphnodes noted with largest measuring 0.7 cm in the subcarinal region (axial image 130). The bilateral adrenal glands are grossly stable and unremarkable. Thereis a stable cyst in the posterior right hepatic lobe measuring 2.5 cm, whichdoes not require follow-up imaging. There is a minimal to mild levoscoliotic curvature of the spine with degenerative changes. IMPRESSION: Redemonstration of scattered small pulmonary nodules measuring up to 0.5cm, similar to the prior study. No definite evidence of a new suspiciouspulmonary nodule. Mild emphysematous changes of lungs with scattered mild subsegmental atelectasis and scarring. Redemonstration of mosaic attenuation of the bilateral lungs, which islikely related to air trapping/reactive small airways disease. Scattered subtle mild bronchial wall thickening, which is likely relatedto mild chronic bronchitis/bronchiolitis. Lung-RADS category 2: Benign appearance or behavior. Recommendation: Low dose Screening CT of chest in 12 months. THIS IS AN ELECTRONICALLY VERIFIED FINAL REPORT 05/14/2024 8:34 AM - Electronically signed by Radha Moreau D.O. PS: PS Report ID: [id number] Reading Location: [place] [address] [place] Jimenez MD IM CT PROCEDURES Final Result * Screening Mammogram Bilateral W Sherman (05/01/2021 12:28 PM LANDSCAPE DRAFTER) Anatomical Region Laterality Modality Breast Bilateral Mammography 05/01/2021 12:3 5 PM LANDSCAPE DRAFTER Impressions 05/01/2021 12:35 PM LANDSCAPE DRAFTER There is no mammographic evidence of malignancy. A 1 year screening mammogram is recommended. BI-RADS: 1 - Negative. The patient has been or will be contacted. The patient will be entered into a reminder system with a target due date of 1 year for her next mammogram. Electronically signed by: Daniel aMgaña M.D. Narrative 05/01/2021 12:35 PM LANDSCAPE DRAFTER EXAMINATION: SCREENING MAMMOGRAM BILATERAL W SHERMAN ORDERING HEALTHCARE PROVIDER: SELF SCREENING MAMMOGRAM HISTORY: Routine screening mammography. COMPARISON: 06/29/2019, 11/10/2010, 11/28/2008 TECHNIQUE: CC and MLO views of the bilateral breasts as well as XCCL view of the left breast were obtained with digital technique using breast tomosynthesis with C view. Computer aided detection was utilized. FINDINGS: DENSITY: The tissue of the bilateral breasts is almost entirely fatty. BREASTS: There are no suspicious masses, suspicious calcifications, or other suspicious findings in either breast. There has been no suspicious interval change. us Self Screening Mammogram IMG MAMMO PROCEDURES Fi nal Result from Last 3 Months or Most Recently Relevant to Health Maintenance Insurance IDPA IDPA IDPA HUMANA CHOICE MEDICARE PPO IDPA HUMANA CHOICE MEDICARE PPO HUMANA CHOICE MEDICARE PPO [id number] Advance Directives For more information, please contact: [phone] * Full Code (Latest Code Status on File) Date Activated Date Inactivated Comments 05/27/2024 10:47 PM 05/29/2024 8:36 PM * Full Code Date Activated Date Inactivated Comments 02/05/2019 2:39 PM 02/07/2019 9:38 PM Care Teams Stove Mechanic Relationship Specialty Start Date End Date Troy Avalos MD PCP - General Family Practice 09/20/23
--- OUTSIDE RECORDS SUMMARY | 2025-02-04 14:53 | XMS_ITS | Encounter Summary ---
Author Organization [facility] Address [facility] [place] [address] Care Team Providers Care Product Ambassador Name Role Phone Renato Dale MD Primary Care Provider [phone] Stu Shepherd MD Unavailable [phone] Kusum Dinero RN Unavailable [phone] Troy Avalos MD Primary Care Provider [phone] Encounter Details Date Type Department Care Team (Late st Contact Info) Description 10/02/2020 Abstract [facility] [address] Ray Cruz MA Social History Tobacco Use Types Packs/Day Years Used Date Smoking Tobacco: Every Day Cigarettes Smokeless Tobacco: Never Alcohol Use Standard Drinks/Week Comments Yes 0 (1 standard drink = 0.6 oz pur e alcohol) rare AUDIT-C Answer Date Recorded Q1: How often do you have a drink containing alc ohol? Monthly or less 11/09/2019 Average Number of Drinks Not on file 020 Frequency of Binge Drinking Not on file 10/30 PHQ-2 Answer Date Recorded PHQ-2 Score 0 03/28/2019 Education Answer Date Recorded What is the [...] Exposure Response Date Recorded In the last month, have you been in contact with someone who was confirmed or suspected to have Coronavirus / COVID-19? No / Unsure 10/01/2020 10:08 AM CDT documented as of this encounter Plan of Treatment Upcoming Encounters Date Type Department Care Team (Late st Contact Info) Description 02/07/2025 11:00 AM CDT Office Visit [facility] [address] [place], [place] [id number] Jose Correia MD [address] [facility] [address] [place], [place] [id number] documented as of this encounter Goals Goal Patient Goal Type Associated Problems Recent Progress Patient-Stated? Author Reduce Sodium Intake Diet On track(2022 1:41 PM CDT) Kusum Ferrell, RN Note: 03/09/22: Patient continues to watch sodium intake of no more than 2,000 mg sodium diet daily. Establish Regular Follow-Ups with PCP / Cardiology General On track(2022 3:11 PM ACIDIZER HELPER) Kusum Ferrell, RN Note: 10/06/22: confirmed appointment with on 11/23/22. 08/17/22: Patient will f/u with on 08/24/22 and Maintenance Apprentice the last week of July. She did not have date available during call. documented as of this encounter Procedures Procedure Name Priority Date/Time Associated Diagnosis Comments BASIC METABOLIC PANEL Routine 10/02/2020 documented in this encounter Results * BASIC METABOLIC PANEL (10/02/2020) SODIUM S/P/B 143 POTASSIUM S/P/B 4.2 CO2 27 CHLORIDE S/P/B 103 GLUCOSE 105 mg/dL CALCIUM S/P/B 9.0 BUN 20 CREATININE S/P/B 1.0 0.5 - 1.0 EGFR AFR. AMER. 73 <=90 EGFR NON-AFR. AMER. 61 <=90 10/02/2020 us Doc [facility] Abstract LABORATORY Final Result documented in this encounter Visit Diagnoses Not on filedocumented in this encounter Additional Health Concerns Infection Onset Date Last Indicated Resolved Time COVID-19 Rule Out 05/06/2022 05/06/2022 05/06/2022 12:01 PM ACIDIZER HELPER Assessment Noted Time PHQ-9 Depression Total Score: 10 019 7:46 AM CDT documented as of this encounter Care Teams Product Ambassador Relationship Specialty [place] [address] [place] [address] PCP - General FAMILY PRACTICE 12/24/15 04/20/23 Troy Avalos MD [address] [place] [address] PCP - General FAMILY PRACTICE 12/31/24 Stu Shepherd MD [facility] [address] [place] [address] [place] Maintenance Apprentice CARDIOVASCULAR DISEASE 11/25/16 Kusum Dinero, RN [address] [place] [address] Drying Rack Changer (Ambulatory) REGISTERED NURSE 03/06/19 05/11/23 documented as of this encounter
--- OUTSIDE RECORDS SUMMARY | 2025-02-04 14:53 | XMS_ITS | Encounter Summary ---
Author Organization [facility] Address [facility] [place] [address] Care Team Providers Care Slitting Machine Operator Name Role Phone Renato Dale MD Primary Care Provider [phone] Stu Shepherd MD Unavailable [phone] Kusum Dinero RN Unavailable [phone] Troy Avalos MD Primary Care Provider [phone] Encounter Details Date Type Department Care Team (Late st Contact Info) Description 11/23/2022 [employer] Vehiclest Message Enc [facility] Family & Internal Medicine [facility] [address] [place] [address] [place] [address] [place] [address] Weight loss shot Social History [...] place to sleep or slept in a [place] health [place] facility (including now)? No 06/15/2022 Education Answer Date [...] as of this encounter Progress Notes * Brooklyn Moya RN - 12/03/2022 2:[address] Dale needs to addend pt's 7-25 OV note discussing ordering Wegovy for weight loss. Then we can submit PA with chart notes. Task printed and placed on his desk to complete. documented in this encounter Plan of Treatment Upcoming Encounters Date Type Department Care Team (Late st Contact Info) Description 02/07/2025 11:00 AM CDT Office Visit [facility] [address] [place] [address] Jose Correia MD 3 [facility] [address] [place] [address] documented as of this encounter Goals Goal Patient Goal Type Associated Problems Recent Progress Patient-Stated? Author Reduce Sodium Intake Diet On track(2022 1:41 PM CDT) Kusum Ferrell, RN Note: 03/09/22: Patient continues to watch sodium intake of no more than 2,000 mg sodium diet daily. Establish Regular Follow-Ups with PCP / Cardiology General On track(2022 3:11 PM LIQUOR MAKER) Kusum Ferrell, RN Note: 10/06/22: confirmed appointment with on 11/23/22. 08/17/22: Patient will f/u with on 08/24/22 and [employer] the last week of July. She did not have date available during call. Establish Plan for Symptom Monitoring- HF General On track(2022 3:11 PM LIQUOR MAKER) Kusum Ferrell, RN Note: Patient will recognize symptoms of CHF and report to physician should they occur. Daily weight. Report weight gain of > 3 lbs overnight or > 5 lbs in a week Maintain 64 oz fluid restriction Call physician if you experience worsening shortness of breath, edema, fatigue, or cough 08/17/22: Scheduled to see [employer] at the end of July. Patient is on fluid restriction and doesn't go over 64 ounces. SOB with exertion and she plans on discussing with [employer] at upcoming appointment since this has been going on for a while now. See note for details. Establish Plan for Symptom Monitoring-HTN General On track(2022 3:11 PM LIQUOR MAKER) No Kusum Dinero, RN Note: Patient will recognize symptoms of [...] smoking Lifestyle Not on track(2022 3:11 PM LIQUOR MAKER) No Kusum Dinero, RN Note: 10/06/22: Patient not ready at this time. 09/08/22: Patient not ready at this time. 03/09/22: Educated on smoking cessation. Patient declines at this time. Stated she is not ready. Manage anxiety Lifestyle On track(2022 3:11 PM LIQUOR MAKER) No Kusum Dinero, RN Note: 10/06/22: Patient taking medication as prescribed. Sets an alarm but sometimes forgets to take lunch time dose. See note for details. documented as of this encounter Visit Diagnoses Not on filedocumented in this encounter Additional Health Concerns Assessment Noted Time PHQ-9 Depression Total Score: 0 07/17/19 22 1:33 PM CDT documented as of this encounter Care Teams Slitting Machine Operator Relationship Specialty [place] [address] [place] [address] PCP - General FAMILY PRACTICE 12/24/15 04/20/23 Troy Avalos MD [address] [place] [address] PCP - General FAMILY PRACTICE 12/31/24 Stu Shepherd MD [facility]. [facility] [address] [place] [address] [place] [employer] CARDIOVASCULAR DISEASE 11/25/16 Kusum Dinero, RN [address] [place] [address] Manager Clinical Research (Ambulatory) REGISTERED NURSE 03/06/19 05/11/23 documented as of this encounter
--- OUTSIDE RECORDS SUMMARY | 2025-02-04 14:53 | XMS_ITS | Encounter Summary ---
Author Organization [facility] Address [facility] [place] [address] Care Team Providers Care Laser Engineer Name Role Phone Renato Dale MD Primary Care Provider [phone] Stu Shepherd MD Unavailable [phone] Kusum Dinero RN Unavailable [phone] Troy Avalos MD Primary Care Provider [phone] Encounter Details Date Type Department Care Team (Late st Contact Info) Description 12/22/2022 yubackt Message Enc [facility] Medical Group Family & Internal Medicine [facility] [address] [place] [address] [place] [address] [place] [address] Update on ER Social History Tobacco Use Types Packs/Day [...] place to sleep or slept in a intermediate (including now)? No 06/15/2022 Education Answer Date [...] 02/07/2025 11:00 AM CDT Office Visit [facility] [address] [facility], [address] [place] [address] Jose Correia MD 3 [facility] [address] [place] [address] documented as of this encounter Goals Goal Patient Goal Type Associated Problems Recent Progress Patient-Stated? Author Reduce Sodium Intake Diet On track(2022 1:41 PM CDT) Kusum Ferrell RN Note: 03/09/22: Patient continues to watch sodium intake of no more than 2,000 mg sodium diet daily. Establish Regular Follow-Ups with PCP / Cardiology General On track(2022 3:11 PM MANAGER OF APPLICATION DEVELOPMENT) Kusum Ferrell, RN Note: 10/06/22: confirmed appointment with on 11/23/22. 08/17/22: Patient will f/u with on 08/24/22 and Formation Fracturing Operator the last week of July. She did not have date available during call. Establish Plan for Symptom Monitoring- HF General On track(2022 3:11 PM MANAGER OF APPLICATION DEVELOPMENT) Kusum Ferrell, RN Note: Patient will recognize symptoms of CHF and report to physician should they occur. Daily weight. Report weight gain of > 3 lbs overnight or > 5 lbs in a week Maintain 64 oz fluid restriction Call physician if you experience worsening shortness of breath, edema, fatigue, or cough 08/17/22: Scheduled to see Formation Fracturing Operator at the end of July. Patient is on fluid restriction and doesn't go over 64 ounces. SOB with exertion and she plans on discussing with Formation Fracturing Operator at upcoming appointment since this has been going on for a while now. See note for details. Establish Plan for Symptom Monitoring-HTN General On track(2022 3:11 PM MANAGER OF APPLICATION DEVELOPMENT) Kusum Ferrell RN Note: Patient will recognize [...] smoking Lifestyle Not on track(2022 3:11 PM MANAGER OF APPLICATION DEVELOPMENT) No Kusum Dinero RN Note: 10/06/22: Patient not ready at this time. 09/08/22: Patient not ready at this time. 03/09/22: Educated on smoking cessation. Patient declines at this time. Stated she is not ready. Manage anxiety Lifestyle On track(2022 3:11 PM MANAGER OF APPLICATION DEVELOPMENT) No Kusum Dinero, RN Note: 10/06/22: Patient taking medication as prescribed. Sets an alarm but sometimes forgets to take lunch time dose. See note for details. documented as of this encounter Visit Diagnoses Not on filedocumented in this encounter Additional Health Concerns Assessment Noted Time PHQ-9 Depression Total Score: 0 07/17/19 22 1:33 PM CDT documented as of this encounter Care Teams Laser Engineer Relationship Specialty [place] [address] [place] [address] PCP - General FAMILY PRACTICE 12/24/15 04/20/23 Troy Avalos MD [address] [place], [place] [id number] PCP - General FAMILY PRACTICE 12/31/24 Stu Shepherd MD [facility] [address] [place], [place] [id number] [place] Formation Fracturing Operator CARDIOVASCULAR DISEASE 11/25/16 Kusum Dinero, RN [address] [place] [address] Electrician Assistant (Ambulatory) REGISTERED NURSE 03/06/19 05/11/23 documented as of this encounter
--- OUTSIDE RECORDS SUMMARY | 2025-02-04 14:53 | XMS_ITS | Encounter Summary ---
Author Organization [place] Address [facility] [place] [address] Care Team Providers Care Impregnating Machine Operator Name Role Phone Renato Dale MD Primary Care Provider [phone] Stu Shepherd MD Unavailable [phone] Kusum Dinero RN Unavailable [phone] Troy Avalos MD Primary Care Provider [phone] Encounter Details Date Type Department Care Team (Late st Contact Info) Description 10/07/2018 Abstract [facility] [address] [place] [address] , Generic Conversion, Social History Tobacco Use Types Packs/Day Years Used Date Smoking Tobacco: Every Day Cigarettes Smokeless Tobacco: Never Comments:rolls own cigarette s. Verbalized benefits of smoking cessation. Recommended smoking cessation. Patient states plans to quit today, Alcohol Use Standard Drinks/Week Comments No 0 (1 standard drink = 0.6 oz pur e alcohol) Education Answer Date Recorded What is the [...] Description 02/07/2025 11:00 AM CDT Office Visit [facility] [address] [facility], [address] [place] [address] Jose Correia MD 3 [facility] [address] [place] [address] documented as of this encounter Visit Diagnoses Not on filedocumented in this encounter Additional Health Concerns Infection Onset Date Last Indicated Resolved Time COVID-19 Rule Out 05/06/2022 05/06/2022 05/06/2022 12:01 PM CUTTER OPERATOR ASBESTOS SHINGLE Assessment Noted Time PHQ-9 Depression Total Score: 10 019 7:46 AM CDT documented as of this encounter Care Teams Impregnating Machine Operator Relationship Specialty [place] [address] [place] [address] PCP - General FAMILY PRACTICE 12/24/15 04/20/23 Troy Avalos MD [address] [place] [address] PCP - General FAMILY PRACTICE 12/31/24 Stu Shepherd MD Three [facility]. [address] [place] [address] [employer] Pet[employer] Refinery Operator CARDIOVASCULAR DISEASE 11/25/16 Kusum Dinero, RN [address] [place] [address] Lead Pressman [employer] Print[employer] (Ambulatory) REGISTERED NURSE 03/06/19 05/11/23 documented as of this encounter
--- OUTSIDE RECORDS SUMMARY | 2025-02-04 14:53 | XMS_ITS | Encounter Summary ---
Author Organization [facility] Address [facility] [place] [address] Care Team Providers Care Panel Installer Name Role Phone Renato Dale MD Primary Care Provider [phone] Stu Shepherd MD Unavailable [phone] Kusum Dinero RN Unavailable [phone] Troy Avalos MD Primary Care Provider [phone] Encounter Details Date Type Department Care Team (Late st Contact Info) Description 11/03/2022 Grove Instrumentst Message Enc [facility] Medical Group Family & Internal Medicine [facility] [address] [place] [address] [place] [address] [place] [address] Pain Social History Tobacco Use Types Packs/Day Years [...] 02/07/2025 11:00 AM CDT Office Visit [facility] THREE [facility] [address] [place] [address] Jose Correia MD 3 [facility] [address] [place], [place] [id number] documented as of this encounter Goals Goal Patient Goal Type Associated Problems Recent Progress Patient-Stated? Author Reduce Sodium Intake Diet On track(2022 1:41 PM CDT) Kusum Ferrell RN Note: 03/09/22: Patient continues to watch sodium intake of no more than 2,000 mg sodium diet daily. Establish Regular Follow-Ups with PCP / Cardiology General On track(2022 3:11 PM FERRYBOAT PILOT) Kusum Ferrell, RN Note: 10/06/22: confirmed appointment with on 11/23/22. 08/17/22: Patient will f/u with on 08/24/22 and General Teller the last week of July. She did not have date available during call. Establish Plan for Symptom Monitoring- HF General On track(2022 3:11 PM FERRYBOAT PILOT) Kusum Ferrell, RN Note: Patient will recognize symptoms of CHF and report to physician should they occur. Daily weight. Report weight gain of > 3 lbs overnight or > 5 lbs in a week Maintain 64 oz fluid restriction Call physician if you experience worsening shortness of breath, edema, fatigue, or cough 08/17/22: Scheduled to see General Teller at the end of July. Patient is on fluid restriction and doesn't go over 64 ounces. SOB with exertion and she plans on discussing with General Teller at upcoming appointment since this has been going on for a while now. See note for details. Establish Plan for Symptom Monitoring-HTN General On track(2022 3:11 PM FERRYBOAT PILOT) Kusum Ferrell RN Note: Patient will recognize [...] smoking Lifestyle Not on track(2022 3:11 PM FERRYBOAT PILOT) No Kusum Dinero RN Note: 10/06/22: Patient not ready at this time. 09/08/22: Patient not ready at this time. 03/09/22: Educated on smoking cessation. Patient declines at this time. Stated she is not ready. Manage anxiety Lifestyle On track(2022 3:11 PM FERRYBOAT PILOT) No Kusum Dinero, RN Note: 10/06/22: Patient taking medication as prescribed. Sets an alarm but sometimes forgets to take lunch time dose. See note for details. documented as of this encounter Visit Diagnoses Not on filedocumented in this encounter Additional Health Concerns Assessment Noted Time PHQ-9 Depression Total Score: 0 07/17/19 22 1:33 PM CDT documented as of this encounter Care Teams Panel Installer Relationship Specialty [place] [address] [place] [address] PCP - General FAMILY PRACTICE 12/24/15 04/20/23 Troy Avalos MD [address] [place], [place] [id number] PCP - General FAMILY PRACTICE 12/31/24 Stu Shepherd MD [facility]. [facility] [address] [place] [address] [place] General Teller CARDIOVASCULAR DISEASE 11/25/16 Kusum Dinero, RN [address] [place] [address] Production Planning Manager (Ambulatory) REGISTERED NURSE 03/06/19 05/11/23 documented as of this encounter
--- OUTSIDE RECORDS SUMMARY | 2025-02-04 14:53 | XMS_ITS | Encounter Summary ---
Author Organization [facility] Address [facility]6 [place] [address] Care Team Providers Care Metal Treater Name Role Phone Renato Dale MD Primary Care Provider [phone] Stu Shepherd MD Unavailable [phone] Kusum Dinero RN Unavailable [phone] Troy Avalos MD Primary Care Provider [phone] Encounter Details Date Type Department Care Team (Late st Contact Info) Description 01/29/2022 Anchovi Labst Message Enc [facility] Medical Group Family & Internal Medicine [facility] [address] [place] [address] [place] [address] [place] [address] MRI med Social History Tobacco Use Types Packs/Day Years [...] Description 02/07/2025 11:00 AM CDT Office Visit [facility] [address] [facility] [address], [address] [place] [id number] Jose Correia MD 3 [facility] [address] [place] [address] documented as of this encounter Goals Goal Patient Goal Type Associated Problems Recent Progress Patient-Stated? Author Reduce Sodium Intake Diet On track(2022 1:41 PM CDT) Kusum Ferrell, RN Note: 03/09/22: Patient continues to watch sodium intake of no more than 2,000 mg sodium diet daily. Establish Regular Follow-Ups with PCP / Cardiology General On track(2022 3:11 PM YACHT CAPTAIN) Kusum Ferrell, RN Note: 10/06/22: confirmed appointment with on 11/23/22. 08/17/22: Patient will f/u with on 08/24/22 and Louver Door Assembler the last week of July. She did not have date available during call. Establish Plan for Symptom Monitoring- HF General On track(2022 3:11 PM YACHT CAPTAIN) Kusum Ferrell RN Note: Patient will recognize symptoms of CHF and report to physician should they occur. Daily weight. Report weight gain of > 3 lbs overnight or > 5 lbs in a week Maintain 64 oz fluid restriction Call physician if you experience worsening shortness of breath, edema, fatigue, or cough 08/17/22: Scheduled to see Louver Door Assembler at the end of July. Patient is on fluid restriction and doesn't go over 64 ounces. SOB with exertion and she plans on discussing with Louver Door Assembler at upcoming appointment since this has been going on for a while now. See note for details. Establish Plan for Symptom Monitoring-HTN General On track(2022 3:11 PM YACHT CAPTAIN) Kusum Ferrell RN Note: Patient will recognize [...] smoking Lifestyle Not on track(2022 3:11 PM YACHT CAPTAIN) Kusum Ferrell RN Note: 10/06/22: Patient not [...] Rule Out 05/06/2022 05/06/2022 05/06/2022 12:01 PM YACHT CAPTAIN Assessment Noted Time PHQ-9 Depression Total Score: 0 07/17/19 22 1:33 PM CDT documented as of this encounter Care Teams Metal Treater Relationship Specialty [place] [address] [place] [id number] PCP - General FAMILY PRACTICE 12/24/15 04/20/23 Troy Avalos MD [address] [place], [place] [phone] PCP - General FAMILY PRACTICE 12/31/24 Stu Shepherd MD [facility] [address] [place] [address] [place] Louver Door Assembler CARDIOVASCULAR DISEASE 11/25/16 Kusum Dinero, RN [address] [place] [address] Baffle Installer (Ambulatory) REGISTERED NURSE 03/06/19 05/11/23 documented as of this encounter
--- OUTSIDE RECORDS SUMMARY | 2025-02-04 14:53 | XMS_ITS | Encounter Summary ---
Author Organization [facility] Address [address] [place] [address] Care Team Providers Care Jaw Skinner Name Role Phone Renato Dale MD Primary Care Provider [phone] Stu Shepherd MD Unavailable [phone] Kusum Dinero RN Unavailable [phone] Troy Avalos MD Primary Care Provider [phone] Encounter Details Date Type Department Care Team (Late st Contact Info) Description 10/27/2022 MyChart Message Enc [facility] Medical Group - [facility] [address] [place] [address] [facility] [employer] Provider Air Quality Message Social History Tobacco Use Types Packs/Day Years [...] 02/07/2025 11:00 AM CDT Office Visit [facility] THREE [facility], [address] [place] [address] Jose Correia MD 3 [facility] [address] [address] documented as of this encounter Goals Goal Patient Goal Type Associated Problems Recent Progress Patient-Stated? Author Reduce Sodium Intake Diet On track(2022 1:41 PM CDT) Kusum Ferrell RN Note: 03/09/22: Patient continues to watch sodium intake of no more than 2,000 mg sodium diet daily. Establish Regular Follow-Ups with PCP / Cardiology General On track(2022 3:11 PM SALES COUNSELOR) Kusum Ferrell, RN Note: 10/06/22: confirmed appointment with on 11/23/22. 08/17/22: Patient will f/u with on 08/24/22 and Roll Line Operator the last week of July. She did not have date available during call. Establish Plan for Symptom Monitoring- HF General On track(2022 3:11 PM SALES COUNSELOR) Kusum Ferrell, RN Note: Patient will recognize symptoms of CHF and report to physician should they occur. Daily weight. Report weight gain of > 3 lbs overnight or > 5 lbs in a week Maintain 64 oz fluid restriction Call physician if you experience worsening shortness of breath, edema, fatigue, or cough 08/17/22: Scheduled to see Roll Line Operator at the end of July. Patient is on fluid restriction and doesn't go over 64 ounces. SOB with exertion and she plans on discussing with Roll Line Operator at upcoming appointment since this has been going on for a while now. See note for details. Establish Plan for Symptom Monitoring-HTN General On track(2022 3:11 PM SALES COUNSELOR) Kusum Ferrell RN Note: Patient will recognize [...] smoking Lifestyle Not on track(2022 3:11 PM SALES COUNSELOR) No Kusum Dinero RN Note: 10/06/22: Patient not ready at this time. 09/08/22: Patient not ready at this time. 03/09/22: Educated on smoking cessation. Patient declines at this time. Stated she is not ready. Manage anxiety Lifestyle On track(2022 3:11 PM SALES COUNSELOR) No Kusum Dinero, RN Note: 10/06/22: Patient taking medication as prescribed. Sets an alarm but sometimes forgets to take lunch time dose. See note for details. documented as of this encounter Visit Diagnoses Not on filedocumented in this encounter Additional Health Concerns Assessment Noted Time PHQ-9 Depression Total Score: 0 07/17/19 22 1:33 PM CDT documented as of this encounter Care Teams Jaw Skinner Relationship Specialty [place] [address] [place] [address] PCP - General FAMILY PRACTICE 12/24/15 04/20/23 Troy Avalos MD [address] [place] [address] PCP - General FAMILY PRACTICE 12/31/24 Stu Shepherd MD [facility] [address] [place], [place] [address] [place] Roll Line Operator CARDIOVASCULAR DISEASE 11/25/16 Kusum Dinero, RN [address] [place] [address] Reference Librarian (Ambulatory) REGISTERED NURSE 03/06/19 05/11/23 documented as of this encounter
--- OUTSIDE RECORDS SUMMARY | 2025-02-04 14:53 | XMS_ITS | Encounter Summary ---
Author Organization [facility] Address [facility] [place] [address] Care Team Providers Care Senior Credit Analyst Name Role Phone Renato Dale MD Primary Care Provider [phone] Stu Shepherd MD Unavailable [phone] Kusum Dinero RN Unavailable [phone] Troy Avalos MD Primary Care Provider [phone] Encounter Details Date Type Department Care Team (Late st Contact Info) Description 06/06/2018 MyChart Message Enc [facility] Medical Group Family & Internal Medicine [facility] [address] [place] [address] [place] [address] [place] [address] RE: Test Results Social History Tobacco Use Types Packs/Day Years [...] Description 02/07/2025 11:00 AM CDT Office Visit [facility] THREE [facility], [address] [place] [address] Jose Correia MD 3 [facility] [place] [address] [place] [address] documented as of this encounter Visit Diagnoses Not on filedocumented in this encounter Additional Health Concerns Infection Onset Date Last Indicated Resolved Time COVID-19 Rule Out 05/06/2022 05/06/2022 05/06/2022 12:01 PM SETTER OFF documented as of this encounter Care Teams Senior Credit Analyst Relationship Specialty [place] [address] [place] [address] PCP - General FAMILY PRACTICE 12/24/15 04/20/23 Troy Avalos MD [address] [place] [address] PCP - General FAMILY PRACTICE 12/31/24 Stu Shepherd MD Three [facility]. [address] [place] [address] [place] Veneer Drier Feeder CARDIOVASCULAR DISEASE 11/25/16 Kusum Dinero, RN [address] [place] [address] Sports Betting Manager (Ambulatory) REGISTERED NURSE 03/06/19 05/11/23 documented as of this encounter
--- OUTSIDE RECORDS SUMMARY | 2025-02-04 14:53 | XMS_ITS | Encounter Summary ---
Author Organization [facility] Address [facility] [place] [address] Care Team Providers Care Manual Equipment Mechanic Name Role Phone Renato Dale MD Primary Care Provider [phone] Stu Shepherd MD Unavailable [phone] Kusum Dinero RN Unavailable [phone] Troy Avalos MD Primary Care Provider [phone] Encounter Details Date Type Department Care Team (Late st Contact Info) Description 12/15/2021 Renewable Fuel Productst Message Enc [facility] Medical Group Orthopaedic Surgery-[place] [address] [place] [address] [place] [address] [place] [address] Shoulder and arm Social History Tobacco Use Types Packs/Day Years [...] Description 02/07/2025 11:00 AM CDT [facility] THREE [facility], [place] [address] [place] [id number] Jose Correia MD 3 [facility] [place] [address] [place] [address] documented as of this encounter Goals Goal Patient Goal Type Associated Problems Recent Progress Patient-Stated? Author Reduce Sodium Intake Diet On track(2022 1:41 PM CDT) Kusum Ferrell, RN Note: 03/09/22: Patient continues to watch sodium intake of no more than 2,000 mg sodium diet daily. Establish Regular Follow-Ups with PCP / Cardiology General On track(2022 3:11 PM ASSOCIATE LOAN OFFICER) Kusum Ferrell, RN Note: 10/06/22: confirmed appointment with on 11/23/22. 08/17/22: Patient will f/u with on 08/24/22 and Unclaimed Property Officer the last week of July. She did not have date available during call. Establish Plan for Symptom Monitoring- HF General On track(2022 3:11 PM ASSOCIATE LOAN OFFICER) Kusum Ferrell RN Note: Patient will recognize symptoms of CHF and report to physician should they occur. Daily weight. Report weight gain of > 3 lbs overnight or > 5 lbs in a week Maintain 64 oz fluid restriction Call physician if you experience worsening shortness of breath, edema, fatigue, or cough 08/17/22: Scheduled to see Unclaimed Property Officer at the end of July. Patient is on fluid restriction and doesn't go over 64 ounces. SOB with exertion and she plans on discussing with Unclaimed Property Officer at upcoming appointment since this has been going on for a while now. See note for details. Establish Plan for Symptom Monitoring-HTN General On track(2022 3:11 PM ASSOCIATE LOAN OFFICER) Kusum Ferrell, RN Note: Patient will [...] smoking Lifestyle Not on track(2022 3:11 PM ASSOCIATE LOAN OFFICER) Kusum Ferrell RN Note: 10/06/22: Patient not [...] Rule Out 05/06/2022 05/06/2022 05/06/2022 12:01 PM ASSOCIATE LOAN OFFICER Assessment Noted Time PHQ-9 Depression Total Score: 0 07/17/19 22 1:33 PM CDT documented as of this encounter Care Teams Manual Equipment Mechanic Relationship Specialty [place] [address] [place] [address] PCP - General FAMILY PRACTICE 12/24/15 04/20/23 Troy Avalos MD [address] [place] [address] PCP - General FAMILY PRACTICE 12/31/24 Stu Shepherd MD [facility] [address] [place] [address] [place] Unclaimed Property Officer CARDIOVASCULAR DISEASE 11/25/16 Kusum Dinero, RN [address] [place] [address] Regulatory Services Consultant (Ambulatory) REGISTERED NURSE 03/06/19 05/11/23 documented as of this encounter
--- OUTSIDE RECORDS SUMMARY | 2025-02-04 14:53 | XMS_ITS | Encounter Summary ---
Author Organization [facility] Address [facility] [place] [address] Care Team Providers Care Psych Specialist Name Role Phone Renato Dale MD Primary Care Provider [phone] Stu Shepherd MD Unavailable [phone] Kusum Dinero RN Unavailable [phone] Troy Avalos MD Primary Care Provider [phone] Encounter Details Date Type Department Care Team (Late st Contact Info) Description 07/08/2018 [email or web address] Message Enc [facility] Medical Group Family & Internal Medicine [facility] [address] [place] [address] [place] [address] [place] [address] Test Results Social History Tobacco Use Types [...] Description 02/07/2025 11:00 AM CDT Office Visit [place] [facility] THREE [facility], [address] [place] [address] Jose Correia MD 3 [facility] [address] [place] [address] documented as of this encounter Visit Diagnoses Not on filedocumented in this encounter Additional Health Concerns Infection Onset Date Last Indicated Resolved Time COVID-19 Rule Out 05/06/2022 05/06/2022 05/06/2022 12:01 PM PULL SOCKET ASSEMBLER documented as of this encounter Care Teams Psych Specialist Relationship Specialty [place] [address] [place] [address] PCP - General FAMILY PRACTICE 12/24/15 04/20/23 Troy Avalos MD [address] [place] [address] PCP - General FAMILY PRACTICE 12/31/24 Stu Shepherd MD Three [facility]. [address] [place] [address] [place] Sewing Line Baler CARDIOVASCULAR DISEASE 11/25/16 Kusum Dinero, RN [address] [place] [address] Rouge Presser (Ambulatory) REGISTERED NURSE 03/06/19 05/11/23 documented as of this encounter
--- OUTSIDE RECORDS SUMMARY | 2025-02-04 14:53 | XMS_ITS | Encounter Summary ---
Author Organization [facility] Address [facility] [place] [address] Care Team Providers Care Jig Boring Machine Set Up Operator Name Role Phone Renato Dale MD Primary Care Provider [phone] Stu Shepherd MD Unavailable [phone] Kusum Dinero RN Unavailable [phone] Troy Avalos MD Primary Care Provider [phone] Encounter Details Date Type Department Care Team (Late st Contact Info) Description 01/29/2022 Urban Remedyt Message Enc [facility] Medical Group Family & Internal Medicine [facility] [address] [place] [address] [place] [address] [place] [address] MRI Med Social History Tobacco Use Types Packs/Day Years [...] Description 02/07/2025 11:00 AM CDT Office Visit [facility] THREE [facility] [address], [place] [address] [place] [phone] Jose Correia MD 3 [facility] [address] [place] [address] documented as of this encounter Goals Goal Patient Goal Type Associated Problems Recent Progress Patient-Stated? Author Reduce Sodium Intake Diet On track(2022 1:41 PM CDT) Kusum Ferrell, RN Note: 03/09/22: Patient continues to watch sodium intake of no more than 2,000 mg sodium diet daily. Establish Regular Follow-Ups with PCP / Cardiology General On track(2022 3:11 PM BAKERY AND DELI SALES MANAGER) Kusum Ferrell, RN Note: 10/06/22: confirmed appointment with on 11/23/22. 08/17/22: Patient will f/u with on 08/24/22 and Waste Collection Driver the last week of July. She did not have date available during call. Establish Plan for Symptom Monitoring- HF General On track(2022 3:11 PM BAKERY AND DELI SALES MANAGER) Kusum Ferrell RN Note: Patient will recognize symptoms of CHF and report to physician should they occur. Daily weight. Report weight gain of > 3 lbs overnight or > 5 lbs in a week Maintain 64 oz fluid restriction Call physician if you experience worsening shortness of breath, edema, fatigue, or cough 08/17/22: Scheduled to see Waste Collection Driver at the end of July. Patient is on fluid restriction and doesn't go over 64 ounces. SOB with exertion and she plans on discussing with Waste Collection Driver at upcoming appointment since this has been going on for a while now. See note for details. Establish Plan for Symptom Monitoring-HTN General On track(2022 3:11 PM BAKERY AND DELI SALES MANAGER) Kusum Ferrell RN Note: Patient will [...] smoking Lifestyle Not on track(2022 3:11 PM BAKERY AND DELI SALES MANAGER) Kusum Ferrell RN Note: 10/06/22: Patient not [...] Rule Out 05/06/2022 05/06/2022 05/06/2022 12:01 PM BAKERY AND DELI SALES MANAGER Assessment Noted Time PHQ-9 Depression Total Score: 0 07/17/19 22 1:33 PM CDT documented as of this encounter Care Teams Jig Boring Machine Set Up Operator Relationship Specialty [place] [address] [place] [id number] PCP - General FAMILY PRACTICE 12/24/15 04/20/23 Troy Avalos MD [address] [place], [place] [phone] PCP - General FAMILY PRACTICE 12/31/24 Stu Shepherd MD [facility] [address] [place] [address] [place] Waste Collection Driver CARDIOVASCULAR DISEASE 11/25/16 Kusum Dinero, RN [address] [place] [address] Slime Plant Operator Helper (Ambulatory) REGISTERED NURSE 03/06/19 05/11/23 documented as of this encounter
--- OUTSIDE RECORDS SUMMARY | 2025-02-04 14:53 | XMS_ITS | Encounter Summary ---
Author Organization [facility] Address [facility] access hospital[address] [place] [address] Care Team Providers Care Nutrition Manager Name Role Phone Renato Dale MD Primary Care Provider [phone] Stu Shepherd MD Unavailable [phone] Kusum Dinero RN Unavailable [phone] Troy Avalos MD Primary Care Provider [phone] Encounter Details Date Type Department Care Team (Late st Contact Info) Description 11/18/2020 Gamma 2 Robotics Message [facility] [address] [place] [address] Stu Shepherd MD [facility] [address] [place] [address] RE: Medication Questions Social History Tobacco Use Types Packs/Day Years Used Date Smoking Tobacco: Every Day Cigarettes 1 43.8 Started: 1979 Smokeless Tobacco: Never Alcohol Use Standard Drinks/Week [...] 3, please move on to questions 3-9 2 11/14/2020 Education Answer Date Recorded What is the [...] have Coronavirus / COVID-19? No / Unsure 11/14/2020 8:08 AM CDT documented as of this encounter Plan of Treatment Upcoming Encounters Date Type Department Care Team (Late st Contact Info) Description 02/07/2025 11:00 AM CDT [facility], [place] [address] [place] [phone] Jose Correia MD 3 [facility] [place] [address] [place] [phone] documented as of this encounter Goals Goal Patient Goal Type Associated Problems Recent Progress Patient-Stated? Author Reduce Sodium Intake Diet On track(2022 1:41 PM CDT) Kusum Ferrell, RN Note: 03/09/22: Patient continues to watch sodium intake of no more than 2,000 mg sodium diet daily. Establish Regular Follow-Ups with PCP / Cardiology General On track(2022 3:11 PM SYRUP MACHINE LABORER) Kusum Ferrell, RN Note: 10/06/22: confirmed appointment with on 11/23/22. 08/17/22: Patient will f/u with on 08/24/22 and Residential Housekeeper the last week of July. She did not have date available during call. Quit smoking Lifestyle Not on track(2022 3:11 PM SYRUP MACHINE LABORER) Kusum Ferrell R, RN Note: 10/06/22: Patient not ready at this time. 09/08/22: Patient not ready at this time. 03/09/22: Educated on smoking cessation. Patient declines at this time. Stated she is not ready. documented as of this encounter Visit Diagnoses Not on filedocumented in this encounter Additional Health Concerns Infection Onset Date Last Indicated Resolved Time COVID-19 Rule Out 05/06/2022 05/06/2022 05/06/2022 12:01 PM SYRUP MACHINE LABORER Assessment Noted Time PHQ-9 Depression Total Score: 5 11/15/19 21 8:24 AM CDT documented as of this encounter Care Teams Nutrition Manager Relationship Specialty [place] [address] [place] [address] PCP - General FAMILY PRACTICE 12/24/15 04/20/23 Troy Avalos MD [address] [place] [address] PCP - General FAMILY PRACTICE 12/31/24 Stu Shepherd MD [facility] [address] [place] [address] [place] Residential Housekeeper CARDIOVASCULAR DISEASE 11/25/16 Kusum Dinero, RN [address] [place] [address] Hydroblaster (Ambulatory) REGISTERED NURSE 03/06/19 05/11/23 documented as of this encounter
--- OUTSIDE RECORDS SUMMARY | 2025-02-04 14:53 | XMS_ITS | Encounter Summary ---
Author Organization [facility] Address [facility] [place] [address] Care Team Providers Care Crew Scheduler Name Role Phone Renato Dale MD Primary Care Provider [phone] Stu Shepherd MD Unavailable [phone] Kusum Dinero RN Unavailable [phone] Troy Avalos MD Primary Care Provider [phone] Encounter Details Date Type Department Care Team (Late st Contact Info) Description 12/16/2022 Frontera Filmst Message Enc [facility] Medical Group Family & Internal Medicine [facility] [address] [place] [address] [place] [address] [place] [address] Sertraline 50mg Social History Tobacco Use Types Packs/Day Years [...] 02/07/2025 11:00 AM CDT Office Visit [place] [facility] [facility] [address] [place] [address] Jose Correia MD 3 [facility] [address] [place] [address] documented as of this encounter Goals Goal Patient Goal Type Associated Problems Recent Progress Patient-Stated? Author Reduce Sodium Intake Diet On track(2022 1:41 PM CDT) Kusum Ferrell RN Note: 03/09/22: Patient continues to watch sodium intake of no more than 2,000 mg sodium diet daily. Establish Regular Follow-Ups with PCP / Cardiology General On track(2022 3:11 PM SITECORE DEVELOPER) Kusum Ferrell RN Note: 10/06/22: confirmed appointment with on 11/23/22. 08/17/22: Patient will f/u with on 08/24/22 and Hand Carver the last week of July. She did not have date available during call. Establish Plan for Symptom Monitoring- HF General On track(2022 3:11 PM SITECORE DEVELOPER) Kusum Ferrell RN Note: Patient will recognize symptoms of CHF and report to physician should they occur. Daily weight. Report weight gain of > 3 lbs overnight or > 5 lbs in a week Maintain 64 oz fluid restriction Call physician if you experience worsening shortness of breath, edema, fatigue, or cough 08/17/22: Scheduled to see Hand Carver at the end of July. Patient is on fluid restriction and doesn't go over 64 ounces. SOB with exertion and she plans on discussing with Hand Carver at upcoming appointment since this has been going on for a while now. See note for details. Establish Plan for Symptom Monitoring-HTN General On track(2022 3:11 PM SITECORE DEVELOPER) Kusum Ferrell RN Note: Patient will recognize [...] smoking Lifestyle Not on track(2022 3:11 PM SITECORE DEVELOPER) No Kusum Dinero RN Note: 10/06/22: Patient not ready at this time. 09/08/22: Patient not ready at this time. 03/09/22: Educated on smoking cessation. Patient declines at this time. Stated she is not ready. Manage anxiety Lifestyle On track(2022 3:11 PM SITECORE DEVELOPER) No Kusum Dinreo, RN Note: 10/06/22: Patient taking medication as prescribed. Sets an alarm but sometimes forgets to take lunch time dose. See note for details. documented as of this encounter Visit Diagnoses Not on filedocumented in this encounter Additional Health Concerns Assessment Noted Time PHQ-9 Depression Total Score: 0 07/17/19 22 1:33 PM CDT documented as of this encounter Care Teams Crew Scheduler Relationship Specialty [place] [address] [place] [address] PCP - General FAMILY PRACTICE 12/24/15 04/20/23 Troy Avalos MD [address] [place] [address] PCP - General FAMILY PRACTICE 12/31/24 Stu Shepherd MD [facility]. [facility] [address] [place], [place] [id number] [place] Hand Carver CARDIOVASCULAR DISEASE 11/25/16 Kusum Dinero, RN [address] [place] [address] Senior Controls Engineer (Ambulatory) REGISTERED NURSE 03/06/19 05/11/23 documented as of this encounter
--- OUTSIDE RECORDS SUMMARY | 2025-02-04 14:53 | XMS_ITS | Encounter Summary ---
Author Organization [facility] Address [facility] [place] [address] Care Team Providers Care Fireperson Name Role Phone Renato Dale MD Primary Care Provider [phone] Stu Shepherd MD Unavailable [phone] Kusum Dinero RN Unavailable [phone] Troy Avalos MD Primary Care Provider [phone] Encounter Details Date Type Department Care Team (Late st Contact Info) Description 07/06/2018 Abstract [facility] CONVERSION [address] [place], [place] [id number] , Generic Conversion, Social History Tobacco Use [...] 02/07/2025 11:00 AM CDT Office Visit [facility]anna Cardoza-[place] [facility] [place] [address] [place] [address] Jose Correia MD 3 [facility] [address] [place], [place] [phone] documented as of this encounter Visit Diagnoses Not on filedocumented in this encounter Additional Health Concerns Infection Onset Date Last Indicated Resolved Time COVID-19 Rule Out 05/06/2022 05/06/2022 05/06/2022 12:01 PM HAT BLOCK MAKER documented as of this encounter Care Teams Fireperson Relationship Specialty [place] [address] [place] [address] PCP - General FAMILY PRACTICE 12/24/15 04/20/23 Troy Avalos MD [address] [place] [address] PCP - General FAMILY PRACTICE 12/31/24 Stu Shepherd MD Three [facility]. [facility] [address] [place], [place] [id number] [place] Senior Project Controls Specialist CARDIOVASCULAR DISEASE 11/25/16 Kusum Dinero, RN [address] [place] [address] Podiatric Medicine Professor (Ambulatory) REGISTERED NURSE 03/06/19 05/11/23 documented as of this encounter
--- OUTSIDE RECORDS SUMMARY | 2025-02-04 14:53 | XMS_ITS | Encounter Summary ---
Author Organization [facility] Address [facility] access hospital[address] [place] [address] Care Team Providers Care Tooth Inspector Name Role Phone Renato Dale MD Primary Care Provider [phone] Stu Shepherd MD Unavailable [phone] Kusum Dinero RN Unavailable [phone] Troy Avalos MD Primary Care Provider [phone] Encounter Details Date Type Department Care Team (Late st Contact Info) Description 07/26/2021 [employer] Message Enc [facility] Medical Group Family & Internal Medicine [facility] [address] [place] [address] [place] [address] [place] [address] Blood test Social History Tobacco Use Types Packs/Day Years [...] suspected to have Coronavirus/COVID-19? No / Unsure 07/29/2021 8:08 AM CDT documented as of this encounter Plan of Treatment Upcoming Encounters Date Type Department Care Team (Late st Contact Info) Description 02/07/2025 11:00 AM CDT Office Visit [facility] [address] [facility] [place] [facility], [place] [address] [place] [address] [phone] Jose Correia MD 3 [facility] [address] [place] [address] [phone] documented as of this encounter Goals Goal Patient Goal Type Associated Problems Recent Progress Patient-Stated? Author Reduce Sodium Intake Diet On track(2022 1:41 PM CDT) Kusum Ferrell, RN Note: 03/09/22: Patient continues to watch sodium intake of no more than 2,000 mg sodium diet daily. Establish Regular Follow-Ups with PCP / Cardiology General On track(2022 3:11 PM SNUFF GRINDER AND SCREENER) Kusum Ferrell, RN Note: 10/06/22: confirmed appointment with on 11/23/22. 08/17/22: Patient will f/u with on 08/24/22 and Merchandise Appraiser the last week of July. She did not have date available during call. Establish Plan for Symptom Monitoring- HF General On track(2022 3:11 PM SNUFF GRINDER AND SCREENER) Kusum Ferrell RN Note: Patient will recognize symptoms of CHF and report to physician should they occur. Daily weight. Report weight gain of > 3 lbs overnight or > 5 lbs in a week Maintain 64 oz fluid restriction Call physician if you experience worsening shortness of breath, edema, fatigue, or cough 08/17/22: Scheduled to see Merchandise Appraiser at the end of July. Patient is on fluid restriction and doesn't go over 64 ounces. SOB with exertion and she plans on discussing with Merchandise Appraiser at upcoming appointment since this has been going on for a while now. See note for details. Establish Plan for Symptom Monitoring-HTN General On track(2022 3:11 PM SNUFF GRINDER AND SCREENER) Kusum Ferrell RN Note: Patient will recognize [...] smoking Lifestyle Not on track(2022 3:11 PM SNUFF GRINDER AND SCREENER) Kusum Ferrell RN Note: 10/06/22: Patient not [...] Rule Out 05/06/2022 05/06/2022 05/06/2022 12:01 PM SNUFF GRINDER AND SCREENER Assessment Noted Time PHQ-9 Depression Total Score: 0 07/17/19 1:33 PM CDT documented as of this encounter Care Teams Tooth Inspector Relationship Specialty [place] [address] [place] [address] PCP - General FAMILY PRACTICE 12/24/15 04/20/23 Troy Avalos MD [address] [place] [address] PCP - General FAMILY PRACTICE 12/31/24 Stu Shepherd MD [facility] [address] [place], [place] [id number] [place] Merchandise Appraiser CARDIOVASCULAR DISEASE 11/25/16 Kusum Dinero, RN [address] [place] [address] Cover Remover (Ambulatory) REGISTERED NURSE 03/06/19 05/11/23 documented as of this encounter
--- OUTSIDE RECORDS SUMMARY | 2025-02-04 14:53 | XMS_ITS | Encounter Summary ---
Author Organization [facility] Address [facility] [place] [address] Care Team Providers Care Python Engineer Name Role Phone Renato Dale MD Primary Care Provider [phone] Stu Shepherd MD Unavailable [phone] Kusum Dinero RN Unavailable [phone] Troy Avalos MD Primary Care Provider [phone] Reason for Visit * Reason Onset Date Comments Advise 01/27/2018 Encounter Details Date Type Department Care Team (Latest Contact Info) Description 01/27/2018 [employer] Message nContact Surgical CARDIOVASCULAR [employer] AT [address] [address] Ifeanyi Nash MD Follow Up/Update Social History Tobacco Use Types Packs/Day Years [...] as of this encounter Progress Notes * Rachel Salazar RN - 01/27/2018 7:08 AM CDTFrom: Sandra Saldivar To: Ifeanyi Nash MD Sent: 01/27/2018 3:32 AM CDT Subject: Follow Up/Update When is my next appointment with ? Do I need to make a new appointment ? documented in this encounter Plan of Treatment Upcoming Encounters Date Type Department Care Team (Late st Contact Info) Description 02/07/2025 11:00 AM CDT Office Visit [place] [facility] THREE [facility], [address] [place] [address] Jose Correia MD 3 [facility] [address] [place], [place] [phone] documented as of this encounter Visit Diagnoses Not on filedocumented in this encounter Additional Health Concerns Infection Onset Date Last Indicated Resolved Time COVID-19 Rule Out 05/06/2022 05/06/2022 05/06/2022 12:01 PM BOW STAPLER documented as of this encounter Care Teams Python Engineer Relationship Specialty [place] [address] [place] [address] PCP - General FAMILY PRACTICE 12/24/15 04/20/23 Troy Avalos MD [address] [place] [address] PCP - General FAMILY PRACTICE 12/31/24 Stu Shepherd MD Three [facility]. [address] [place], [place] [address] [place] Rotor Coil Taper CARDIOVASCULAR DISEASE 11/25/16 Kusum Dinero, RN [address] [place] [address] Parts Chaser (Ambulatory) REGISTERED NURSE 03/06/19 05/11/23 documented as of this encounter
[2025-02-04 14:59] LABS: Troponin I < 0.012 ng/mL (0.000-0.034)
[2025-02-04 15:18] LABS: Thyroid Stimulating Hormone 2.150 uIU/mL (0.465-4.680)
[2025-02-04 16:26] LABS: Add Urine Microscopic? YES; Appearance Urine Clear (Clear); Glucose Urine UA Negative (Negative); Leukocyte Esterase Ur 2+ LEU/UL (Negative); Nitrate Urine Negative (Negative); Non Pathogenic Casts 0-2; Specific Grav Ur 1.013 (1.001-1.035)
[2025-02-04] MEDS: SODIUM CHLORIDE 0.9% IV 1,000 ML 999 ML IV CONT (16:44)
--- OUTSIDE RECORDS SUMMARY | 2025-02-04 16:53 | XMS_ITS | Encounter Summary ---
Author Organization [facility] Address [facility] [place] [address] Care Team Providers Care Group Home Manager Name Role Phone Renato Dale MD Primary Care Provider [phone] tSu Shepherd MD Unavailable [phone] Kusum Dinero RN Unavailable [phone] Troy Avalos MD Primary Care Provider [phone] Encounter Details Date Type Department Care Team (Late st Contact Info) Description 07/26/2021 [employer] Message Enc [facility] Medical Group Family & Internal Medicine [facility] [address] [place] [address] [place] [address] [place] [address] Blood test Social History Tobacco [...] 02/07/2025 11:00 AM CDT Office Visit [facility] [address] [facility], [place] [address] [place] [address] [id number] Jose Correia MD 3 [facility] [address] [place] [address] [phone] documented as of this encounter Goals Goal Patient Goal Type Associated Problems Recent Progress Patient-Stated? Author Reduce Sodium Intake Diet On track(2022 1:41 PM CDT) Kusum Ferrell, RN Note: 03/09/22: Patient continues to watch sodium intake of no more than 2,000 mg sodium diet daily. Establish Regular Follow-Ups with PCP / Cardiology General On track(2022 3:11 PM STITCH MARKER) Kusum Ferrell, RN Note: 10/06/22: confirmed appointment with on 11/23/22. 08/17/22: Patient will f/u with on 08/24/22 and Blister Rust Eradicator the last week of July. She did not have date available during call. Establish Plan for Symptom Monitoring- HF General On track(2022 3:11 PM STITCH MARKER) Kusum Ferrell RN Note: Patient will recognize symptoms of CHF and report to physician should they occur. Daily weight. Report weight gain of > 3 lbs overnight or > 5 lbs in a week Maintain 64 oz fluid restriction Call physician if you experience worsening shortness of breath, edema, fatigue, or cough 08/17/22: Scheduled to see Blister Rust Eradicator at the end of July. Patient is on fluid restriction and doesn't go over 64 ounces. SOB with exertion and she plans on discussing with Blister Rust Eradicator at upcoming appointment since this has been going on for a while now. See note for details. Establish Plan for Symptom Monitoring-HTN General On track(2022 3:11 PM STITCH MARKER) Kusum Ferrell RN Note: Patient will recognize [...] smoking Lifestyle Not on track(2022 3:11 PM STITCH MARKER) Kusum Ferrell RN Note: 10/06/22: Patient not [...] Rule Out 05/06/2022 05/06/2022 05/06/2022 12:01 PM STITCH MARKER Assessment Noted Time PHQ-9 Depression Total Score: 0 07/17/19 1:33 PM CDT documented as of this encounter Care Teams Group Home Manager Relationship Specialty [place] [address] [place] [address] PCP - General FAMILY PRACTICE 12/24/15 04/20/23 Troy Avalos MD [address] [place] [address] PCP - General FAMILY PRACTICE 12/31/24 Stu Shepherd MD [facility] [address] [place], [place] [phone] [place] Blister Rust Eradicator CARDIOVASCULAR DISEASE 11/25/16 Kusum Dinero, RN [address] [place] [address] Vehicle Care Specialist (Ambulatory) REGISTERED NURSE 03/06/19 05/11/23 documented as of this encounter
--- OUTSIDE RECORDS SUMMARY | 2025-02-04 16:53 | XMS_ITS | Encounter Summary ---
Author Organization [facility] Address [facility] [place] [address] Care Team Providers Care Household Appliance Repairer Name Role Phone Renato Dale MD Primary Care Provider [phone] Stu Shepherd MD Unavailable [phone] Kusum Dinero RN Unavailable [phone] Troy Avalos MD Primary Care Provider [phone] Encounter Details Date Type Department Care Team (Late st Contact Info) Description 02/08/2023 Jule Game Message Enc [facility] Medical Group Family & Internal Medicine [facility] [address] [place] [address] Hortensia Vaughn, [place] [address] ABD+PEL WO [...] place to sleep or slept in a correction (including now)? No 06/15/2022 Education Answer Date [...] 02/07/2025 11:00 AM CDT Office Visit [facility] THREE [facility], [address] [address] Jose Correia MD 3 [facility] [address] [address] documented as of this encounter Goals Goal Patient Goal Type Associated Problems Recent Progress Patient-Stated? Author Reduce Sodium Intake Diet On track(2022 1:41 PM CDT) Kusum Ferrell RN Note: 03/09/22: Patient continues to watch sodium intake of no more than 2,000 mg sodium diet daily. Establish Regular Follow-Ups with PCP / Cardiology General On track(2022 3:11 PM BORING MILL SET UP OPERATOR VERTICAL) Kusum Ferrell RN Note: 10/06/22: confirmed appointment with on 11/23/22. 08/17/22: Patient will f/u with on 08/24/22 and Internal Carver the last week of July. She did not have date available during call. Establish Plan for Symptom Monitoring- HF General On track(2022 3:11 PM BORING MILL SET UP OPERATOR VERTICAL) Kusum Ferrell RN Note: Patient will recognize symptoms of CHF and report to physician should they occur. Daily weight. Report weight gain of > 3 lbs overnight or > 5 lbs in a week Maintain 64 oz fluid restriction Call physician if you experience worsening shortness of breath, edema, fatigue, or cough 08/17/22: Scheduled to see Internal Carver at the end of July. Patient is on fluid restriction and doesn't go over 64 ounces. SOB with exertion and she plans on discussing with Internal Carver at upcoming appointment since this has been going on for a while now. See note for details. Establish Plan for Symptom Monitoring-HTN General On track(2022 3:11 PM BORING MILL SET UP OPERATOR VERTICAL) Kusum Ferrell RN Note: Patient will recognize [...] smoking Lifestyle Not on track(2022 3:11 PM BORING MILL SET UP OPERATOR VERTICAL) No Kusum Dinero RN Note: 10/06/22: Patient not ready at this time. 09/08/22: Patient not ready at this time. 03/09/22: Educated on smoking cessation. Patient declines at this time. Stated she is not ready. Manage anxiety Lifestyle On track(2022 3:11 PM BORING MILL SET UP OPERATOR VERTICAL) No Kusum Dinero, RN Note: 10/06/22: Patient taking medication as prescribed. Sets an alarm but sometimes forgets to take lunch time dose. See note for details. documented as of this encounter Visit Diagnoses Not on filedocumented in this encounter Additional Health Concerns Assessment Noted Time PHQ-9 Depression Total Score: 0 07/17/19 22 1:33 PM CDT documented as of this encounter Care Teams Household Appliance Repairer Relationship Specialty [place] [address] [place] [address] PCP - General FAMILY PRACTICE 12/24/15 04/20/23 Troy Avalos MD [address] [place] [address] PCP - General FAMILY PRACTICE 12/31/24 Stu Shepherd MD [facility] [address] [place], [place] [address] [place] Internal Carver CARDIOVASCULAR DISEASE 11/25/16 Kusum Dinero, RN [address] [place] [address] Mold Polisher (Ambulatory) REGISTERED NURSE 11/5/19 1/10/24 documented as of this encounter
--- OUTSIDE RECORDS SUMMARY | 2025-02-04 16:53 | XMS_ITS | Encounter Summary ---
Author Organization [facility] Address [facility] [place] [address] Care Team Providers Care Nursing Teacher Name Role Phone Rentao Dale MD Primary Care Provider [phone] Stu Shepherd MD Unavailable [phone] Kusum Dinero RN Unavailable [phone] Troy Avalos MD Primary Care Provider [phone] Encounter Details Date Type Department Care Team (Late st Contact Info) Description 02/07/2023 [employer] Message Enc [facility] Medical Group Family & Internal Medicine [facility] [address] [place] [address] [place] [address] [place] [address] ER Social History Tobacco Use [...] No 06/15/2022 Housing Stability Vital Sign Answer Tairq e Recorded In the last 12 months, [...] place to sleep or slept in a care home (including now)? No 06/15/2022 Education Answer [...] 02/07/2025 11:00 AM CDT Office Visit [facility] THREE [facility], [facility] [address] [place] [address] Jose Correia MD 3 [facility] [address] [place], [place] [phone] documented as of this encounter Goals Goal Patient Goal Type Associated Problems Recent Progress Patient-Stated? Author Reduce Sodium Intake Diet On track(2022 1:41 PM CDT) Kusum Ferrell RN Note: 03/09/22: Patient continues to watch sodium intake of no more than 2,000 mg sodium diet daily. Establish Regular Follow-Ups with PCP / Cardiology General On track(2022 3:11 PM AUTO SELF SERVICE STATION ATTENDANT) Kusum Ferrell, RN Note: 10/06/22: confirmed appointment with on 11/23/22. 08/17/22: Patient will f/u with on 08/24/22 and Mail Service Coordinator the last week of July. She did not have date available during call. Establish Plan for Symptom Monitoring- HF General On track(2022 3:11 PM AUTO SELF SERVICE STATION ATTENDANT) Kusum Ferrell, RN Note: Patient will recognize symptoms of CHF and report to physician should they occur. Daily weight. Report weight gain of > 3 lbs overnight or > 5 lbs in a week Maintain 64 oz fluid restriction Call physician if you experience worsening shortness of breath, edema, fatigue, or cough 08/17/22: Scheduled to see Mail Service Coordinator at the end of July. Patient is on fluid restriction and doesn't go over 64 ounces. SOB with exertion and she plans on discussing with Mail Service Coordinator at upcoming appointment since this has been going on for a while now. See note for details. Establish Plan for Symptom Monitoring-HTN General On track(2022 3:11 PM AUTO SELF SERVICE STATION ATTENDANT) Kusum Ferrell RN Note: Patient will recognize [...] smoking Lifestyle Not on track(2022 3:11 PM AUTO SELF SERVICE STATION ATTENDANT) No Kusum Dinero RN Note: 10/06/22: Patient not ready at this time. 09/08/22: Patient not ready at this time. 03/09/22: Educated on smoking cessation. Patient declines at this time. Stated she is not ready. Manage anxiety Lifestyle On track(2022 3:11 PM AUTO SELF SERVICE STATION ATTENDANT) No Kusum Dinero, RN Note: 10/06/22: Patient taking medication as prescribed. Sets an alarm but sometimes forgets to take lunch time dose. See note for details. documented as of this encounter Visit Diagnoses Not on filedocumented in this encounter Additional Health Concerns Assessment Noted Time PHQ-9 Depression Total Score: 0 07/17/19 22 1:33 PM CDT documented as of this encounter Care Teams Nursing Teacher Relationship Specialty [place] [address] [place] [address] PCP - General FAMILY PRACTICE 12/24/15 04/20/23 Troy Avalos MD [address] [place], [place] [phone] PCP - General FAMILY PRACTICE 12/31/24 Stu Shepherd MD [facility]. [facility] [address] [place] [address] [place] Mail Service Coordinator CARDIOVASCULAR DISEASE 11/25/16 Kusum Dinero, RN [address] [place] [address] Cloth Bolt Bander (Ambulatory) REGISTERED NURSE 03/06/19 05/11/23 documented as of this encounter
--- OUTSIDE RECORDS SUMMARY | 2025-02-04 16:53 | XMS_ITS | Encounter Summary ---
Author Organization [facility] Address [facility] [place] [address] Care Team Providers Care Pharmacometrician Name Role Phone Renato Dale MD Primary Care Provider [phone] Stu Shepherd MD Unavailable [phone] Kusum Dinero RN Unavailable [phone] Troy Avalos MD Primary Care Provider [phone] Encounter Details Date Type Department Care Team (Late st Contact Info) Description 12/16/2022 Contappst Message Enc [facility] Medical Group Family & Internal Medicine [facility] [address] [place] [address] [place] [address] [place] [address] Sertraline 50mg Social History Tobacco [...] place to sleep or slept in a longterm (including now)? No 06/15/2022 Education Answer Date [...] 02/07/2025 11:00 AM CDT Office Visit [facility] THREE [facility] [place] [address] [place] [address] Jose Correia MD 3 [facility] [address] [place] [address] documented as of this encounter Goals Goal Patient Goal Type Associated Problems Recent Progress Patient-Stated? Author Reduce Sodium Intake Diet On track(2022 1:41 PM CDT) Kusum Ferrell RN Note: 03/09/22: Patient continues to watch sodium intake of no more than 2,000 mg sodium diet daily. Establish Regular Follow-Ups with PCP / Cardiology General On track(2022 3:11 PM LINE INSTALLER REPAIRER) Kusum Ferrell RN Note: 10/06/22: confirmed appointment with on 11/23/22. 08/17/22: Patient will f/u with on 08/24/22 and Banquet Captain the last week of July. She did not have date available during call. Establish Plan for Symptom Monitoring- HF General On track(2022 3:11 PM LINE INSTALLER REPAIRER) Kusum Ferrell RN Note: Patient will recognize symptoms of CHF and report to physician should they occur. Daily weight. Report weight gain of > 3 lbs overnight or > 5 lbs in a week Maintain 64 oz fluid restriction Call physician if you experience worsening shortness of breath, edema, fatigue, or cough 08/17/22: Scheduled to see Banquet Captain at the end of July. Patient is on fluid restriction and doesn't go over 64 ounces. SOB with exertion and she plans on discussing with Banquet Captain at upcoming appointment since this has been going on for a while now. See note for details. Establish Plan for Symptom Monitoring-HTN General On track(2022 3:11 PM LINE INSTALLER REPAIRER) Kusum Ferrell RN Note: Patient will recognize [...] smoking Lifestyle Not on track(2022 3:11 PM LINE INSTALLER REPAIRER) No Kusum Dinero RN Note: 10/06/22: Patient not ready at this time. 09/08/22: Patient not ready at this time. 03/09/22: Educated on smoking cessation. Patient declines at this time. Stated she is not ready. Manage anxiety Lifestyle On track(2022 3:11 PM LINE INSTALLER REPAIRER) No Kusum Dinero, RN Note: 10/06/22: Patient taking medication as prescribed. Sets an alarm but sometimes forgets to take lunch time dose. See note for details. documented as of this encounter Visit Diagnoses Not on filedocumented in this encounter Additional Health Concerns Assessment Noted Time PHQ-9 Depression Total Score: 0 07/17/19 22 1:33 PM CDT documented as of this encounter Care Teams Pharmacometrician Relationship Specialty [place] [address] [place] [address] PCP - General FAMILY PRACTICE 12/24/15 04/20/23 Troy Avalos MD [address] [place] [address] PCP - General FAMILY PRACTICE 12/31/24 Stu Shepherd MD [facility]. [facility] [address] [place], [place] [phone] [place] Banquet Captain CARDIOVASCULAR DISEASE 11/25/16 Kusum Dinero, RN [address] [place] [address] Rotary Veneer Machine Operator (Ambulatory) REGISTERED NURSE 03/06/19 05/11/23 documented as of this encounter
--- OUTSIDE RECORDS SUMMARY | 2025-02-04 16:53 | XMS_ITS | Encounter Summary ---
Author Organization [facility] Address [facility] [place] [address] Care Team Providers Care Logistics Operations Manager Name Role Phone Renato Dale MD Primary Care Provider [phone] Stu Shepherd MD Unavailable [phone] Kusum Dinero RN Unavailable [phone] Troy Avalos MD Primary Care Provider [phone] Encounter Details Date Type Department Care Team (Late st Contact Info) Description 10/06/2022 BlitzLocalt Message Enc [facility] Medical Group Family & Internal Medicine [facility] [address] [place] [address] [place] [address] [place] [address] Plaqard Social History Tobacco Use [...] place to sleep or slept in a long-term (including now)? No 06/15/2022 Education Answer Date [...] 02/07/2025 11:00 AM CDT [facility] [address] [place] [address] Jose Correia MD 3 [facility] [address] [place] [address] documented as of this encounter Goals Goal Patient Goal Type Associated Problems Recent Progress Patient-Stated? Author Reduce Sodium Intake Diet On track(2022 1:41 PM CDT) Kusum Ferrell RN Note: 03/09/22: Patient continues to watch sodium intake of no more than 2,000 mg sodium diet daily. Establish Regular Follow-Ups with PCP / Cardiology General On track(2022 3:11 PM ACTION INSTALLER) Kusum Ferrell RN Note: 10/06/22: confirmed appointment with on 11/23/22. 08/17/22: Patient will f/u with on 08/24/22 and Radiology Asst the last week of July. She did not have date available during call. Establish Plan for Symptom Monitoring- HF General On track(2022 3:11 PM ACTION INSTALLER) Kusum Ferrell RN Note: Patient will recognize symptoms of CHF and report to physician should they occur. Daily weight. Report weight gain of > 3 lbs overnight or > 5 lbs in a week Maintain 64 oz fluid restriction Call physician if you experience worsening shortness of breath, edema, fatigue, or cough 08/17/22: Scheduled to see Radiology Asst at the end of July. Patient is on fluid restriction and doesn't go over 64 ounces. SOB with exertion and she plans on discussing with Radiology Asst at upcoming appointment since this has been going on for a while now. See note for details. Establish Plan for Symptom Monitoring-HTN General On track(2022 3:11 PM ACTION INSTALLER) Kusum Ferrell RN Note: Patient will recognize [...] smoking Lifestyle Not on track(2022 3:11 PM ACTION INSTALLER) No Kusum Dinero RN Note: 10/06/22: Patient not ready at this time. 09/08/22: Patient not ready at this time. 03/09/22: Educated on smoking cessation. Patient declines at this time. Stated she is not ready. Manage anxiety Lifestyle On track(2022 3:11 PM ACTION INSTALLER) No Kusum Dinero RN Note: 10/06/22: Patient taking medication as prescribed. Sets an alarm but sometimes forgets to take lunch time dose. See note for details. documented as of this encounter Visit Diagnoses Not on filedocumented in this encounter Additional Health Concerns Assessment Noted Time PHQ-9 Depression Total Score: 0 07/17/19 22 1:33 PM CDT documented as of this encounter Care Teams Logistics Operations Manager Relationship Specialty [place] [address] [place] [address] PCP - General FAMILY PRACTICE 12/24/15 04/20/23 Troy Avalos MD [address] [place] [address] PCP - General FAMILY PRACTICE 12/31/24 Stu Shepherd MD [facility] [address] [place] [address] Judith Radiology Asst CARDIOVASCULAR DISEASE 11/25/16 Kusum Dinero RN [address] [place] [address] Perishable Fruit Inspector (Ambulatory) REGISTERED NURSE 03/06/19 05/11/23 documented as of this encounter
--- OUTSIDE RECORDS SUMMARY | 2025-02-04 16:53 | XMS_ITS | Encounter Summary ---
Author Organization [facility] Address [facility] [place] [address] Care Team Providers Care Associate Professor Of Library Media Name Role Phone Renato Dale MD Primary Care Provider [phone] Stu Shepherd MD Unavailable [phone] Kusum Dinero RN Unavailable [phone] Troy Avalos MD Primary Care Provider [phone] Encounter Details Date Type Department Care Team (Late st Contact Info) Description 12/24/[address] [facility] Medical Group Family & Internal Medicine [facility] [address] [place] [address] [place] [address] [place] [address] Surgeon Social History Tobacco Use [...] 02/07/2025 11:00 AM CDT Office Visit [facility] THREE [facility], [facility] [address] [place] [address] Jose Correia MD 3 [facility] [address] [place], [place] [id number] documented as of this encounter Goals Goal Patient Goal Type Associated Problems Recent Progress Patient-Stated? Author Reduce Sodium Intake Diet On track(2022 1:41 PM CDT) Kusum Ferrell RN Note: 03/09/22: Patient continues to watch sodium intake of no more than 2,000 mg sodium diet daily. Establish Regular Follow-Ups with PCP / Cardiology General On track(2022 3:11 PM RAILROAD CONDUCTOR) Kusum Ferrell, RN Note: 10/06/22: confirmed appointment with on 11/23/22. 08/17/22: Patient will f/u with on 08/24/22 and Credit Reporter the last week of July. She did not have date available during call. Establish Plan for Symptom Monitoring- HF General On track(2022 3:11 PM RAILROAD CONDUCTOR) Kusum Ferrell, RN Note: Patient will recognize symptoms of CHF and report to physician should they occur. Daily weight. Report weight gain of > 3 lbs overnight or > 5 lbs in a week Maintain 64 oz fluid restriction Call physician if you experience worsening shortness of breath, edema, fatigue, or cough 08/17/22: Scheduled to see Credit Reporter at the end of July. Patient is on fluid restriction and doesn't go over 64 ounces. SOB with exertion and she plans on discussing with Credit Reporter at upcoming appointment since this has been going on for a while now. See note for details. Establish Plan for Symptom Monitoring-HTN General On track(2022 3:11 PM RAILROAD CONDUCTOR) Kusum Ferrell RN Note: Patient will recognize [...] smoking Lifestyle Not on track(2022 3:11 PM RAILROAD CONDUCTOR) No Kusum Dinero RN Note: 10/06/22: Patient not ready at this time. 09/08/22: Patient not ready at this time. 03/09/22: Educated on smoking cessation. Patient declines at this time. Stated she is not ready. Manage anxiety Lifestyle On track(2022 3:11 PM RAILROAD CONDUCTOR) No Kusum Dinero, RN Note: 10/06/22: Patient taking medication as prescribed. Sets an alarm but sometimes forgets to take lunch time dose. See note for details. documented as of this encounter Visit Diagnoses Not on filedocumented in this encounter Additional Health Concerns Assessment Noted Time PHQ-9 Depression Total Score: 0 07/17/19 22 1:33 PM CDT documented as of this encounter Care Teams Associate Professor Of Library Media Relationship Specialty [place] [address] [place] [address] PCP - General FAMILY PRACTICE 12/24/15 04/20/23 Troy Avalos MD [address] [place], [place] [address] PCP - General FAMILY PRACTICE 12/31/24 Stu Shepherd MD [facility]. [facility] [address] [place] [address] [place] Credit Reporter CARDIOVASCULAR DISEASE 11/25/16 Kusum Dinero, RN [address] [place] [address] Horse Groomer (Ambulatory) REGISTERED NURSE 03/06/19 05/11/23 documented as of this encounter
--- OUTSIDE RECORDS SUMMARY | 2025-02-04 16:53 | XMS_ITS | Encounter Summary ---
Author Organization [facility] Address [facility] [place] [address] Care Team Providers Care Bed Laster Name Role Phone Renato Dale MD Primary Care Provider [phone] Stu Shepherd MD Unavailable [phone] Kusum Dinero RN Unavailable [phone] Troy Avalos MD Primary Care Provider [phone] Encounter Details Date Type Department Care Team (Late st Contact Info) Description 07/08/2018 Urban Remedyt Message Enc [facility] Medical Group Family & Internal Medicine [facility] [address] [place] [address] [place] [address] [place] [address] Test Results Social History Tobacco [...] Description 02/07/2025 11:00 AM CDT Office Visit [place] [facility] THREE [facility], [address] [place] [address] Jose Correia MD 3 [facility] [place] [address] documented as of this encounter Visit Diagnoses Not on filedocumented in this encounter Additional Health Concerns Infection Onset Date Last Indicated Resolved Time COVID-19 Rule Out 05/06/2022 05/06/2022 05/06/2022 12:01 PM RADIATION / CHEMISTRY TECHNICIAN documented as of this encounter Care Teams Bed Laster Relationship Specialty [place] [address] [place] [address] PCP - General FAMILY PRACTICE 12/24/15 04/20/23 Troy Avalos MD [address] [place] [address] PCP - General FAMILY PRACTICE 12/31/24 Stu Shepherd MD Three [facility]. [address] [place] [address] [place] Rodeo Rider CARDIOVASCULAR DISEASE 11/25/16 Kusum Dinero, RN [address] [place] [address] Editing Clerk (Ambulatory) REGISTERED NURSE 03/06/19 05/11/23 documented as of this encounter
--- OUTSIDE RECORDS SUMMARY | 2025-02-04 16:53 | XMS_ITS | Encounter Summary ---
Author Organization [facility] Address [facility] [place] [address] Care Team Providers Care Oleomargarine Maker Name Role Phone Renato Dale MD Primary Care Provider [phone] Stu Shepherd MD Unavailable [phone] Kusum Dinero RN Unavailable [phone] Troy Avalos MD Primary Care Provider [phone] Encounter Details Date Type Department Care Team (Late st Contact Info) Description 12/16/2022 VHSquaredt Message Enc [facility] Medical Group Family & Internal Medicine [facility] [address] [place] [address] [place] [address] [place] [address] Hurting Social History Tobacco Use [...] 02/07/2025 11:00 AM CDT Office Visit [facility] THREE [facility], [address] [place] [address] Jose Correia MD 3 [facility] [address] [place] [address] documented as of this encounter Goals Goal Patient Goal Type Associated Problems Recent Progress Patient-Stated? Author Reduce Sodium Intake Diet On track(2022 1:41 PM CDT) Kusum Ferrell RN Note: 03/09/22: Patient continues to watch sodium intake of no more than 2,000 mg sodium diet daily. Establish Regular Follow-Ups with PCP / Cardiology General On track(2022 3:11 PM SENIOR BUSINESS CONSULTANT) Kusum Ferrell, RN Note: 10/06/22: confirmed appointment with on 11/23/22. 08/17/22: Patient will f/u with on 08/24/22 and Chaperon the last week of July. She did not have date available during call. Establish Plan for Symptom Monitoring- HF General On track(2022 3:11 PM SENIOR BUSINESS CONSULTANT) Kusum Ferrell, RN Note: Patient will recognize symptoms of CHF and report to physician should they occur. Daily weight. Report weight gain of > 3 lbs overnight or > 5 lbs in a week Maintain 64 oz fluid restriction Call physician if you experience worsening shortness of breath, edema, fatigue, or cough 08/17/22: Scheduled to see Chaperon at the end of July. Patient is on fluid restriction and doesn't go over 64 ounces. SOB with exertion and she plans on discussing with Chaperon at upcoming appointment since this has been going on for a while now. See note for details. Establish Plan for Symptom Monitoring-HTN General On track(2022 3:11 PM SENIOR BUSINESS CONSULTANT) Kusum Ferrell RN Note: Patient will recognize [...] smoking Lifestyle Not on track(2022 3:11 PM SENIOR BUSINESS CONSULTANT) No Kusum Dinero RN Note: 10/06/22: Patient not ready at this time. 09/08/22: Patient not ready at this time. 03/09/22: Educated on smoking cessation. Patient declines at this time. Stated she is not ready. Manage anxiety Lifestyle On track(2022 3:11 PM SENIOR BUSINESS CONSULTANT) No Kusum Dinero, RN Note: 10/06/22: Patient taking medication as prescribed. Sets an alarm but sometimes forgets to take lunch time dose. See note for details. documented as of this encounter Visit Diagnoses Not on filedocumented in this encounter Additional Health Concerns Assessment Noted Time PHQ-9 Depression Total Score: 0 07/17/19 22 1:33 PM CDT documented as of this encounter Care Teams Oleomargarine Maker Relationship Specialty [place] [address] [place] [address] PCP - General FAMILY PRACTICE 12/24/15 04/20/23 Troy Avalos MD [address] [place], [place] [phone] PCP - General FAMILY PRACTICE 12/31/24 Stu Shepherd MD [facility]. [address] [place] [address] [place] Chaperon CARDIOVASCULAR DISEASE 11/25/16 Kusum Dinero, RN [address] [place] [address] Milk Vendor (Ambulatory) REGISTERED NURSE 03/06/19 05/11/23 documented as of this encounter
--- OUTSIDE RECORDS SUMMARY | 2025-02-04 16:53 | XMS_ITS | Encounter Summary ---
Author Organization [facility] Address [facility] [place] [address] Care Team Providers Care Vice President Of Compliance Name Role Phone Renato Dale MD Primary Care Provider [phone] Stu Shepherd MD Unavailable [phone] Kusum Dinero RN Unavailable [phone] Troy Avalos MD Primary Care Provider [phone] Reason for Referral * Surgical (Routine) - Closed Specialty Diagnoses / Procedures Referred By Brielle t Referred To Contact Procedures Case request operating room: RADIOFREQUENCY LUMBAR l2, 3, 4 Blossom Mcgee MD Three [facility] [address] [place] [address] Phone: tel: fax: Referral ID Status Reason Start Date Expiration Date Visits Re quested Visits Authorized [id number] Closed 12/30/2017 01/29/2019 1 1 Encounter Details Date Type Department Care Team (Late st Contact Info) Description 12/30/2017 Prep for Procedure [facility] [place] [address] [phone] Blossom Mcgee MD Three [facility] [address] [place] [address] Social History Tobacco Use Types Packs/Day [...] Description 02/07/2025 11:00 AM CDT Office Visit [facility] THREE [facility], [address] [address] Jose Correia MD 3 [facility] [place] [address] [place] [address] Scheduled Orders Name Type Priority Associated Diagnoses Order Schedule Case request operating room: RADIOFREQUENCY LUMBAR l2, 3, 4 Case Request Routine Once for 1 Occurrences starting 12/30/2017 until 12/30/2017 documented as of this encounter Visit Diagnoses Not on filedocumented in this encounter Additional Health Concerns Infection Onset Date Last Indicated Resolved Time COVID-19 Rule Out 05/06/2022 05/06/2022 05/06/2022 12:01 PM WEIGH BOSS documented as of this encounter Care Teams Vice President Of Compliance Relationship Specialty [place] [address] [place] [address] PCP - General FAMILY PRACTICE 12/24/15 04/20/23 Troy Avalos MD [address] [place] [address] PCP - General FAMILY PRACTICE 12/31/24 Stu Shepherd MD Three [facility]. [facility] [address] [place], [place] [id number] [place] Pumping Supervisor CARDIOVASCULAR DISEASE 11/25/16 Kusum Dinero, RN [address] [place] [address] Auto Tech (Ambulatory) REGISTERED NURSE 03/06/19 05/11/23 documented as of this encounter
--- OUTSIDE RECORDS SUMMARY | 2025-02-04 16:53 | XMS_ITS | Encounter Summary ---
Author Organization [facility] Address [facility] [place] [address] Care Team Providers Care Filter Tender Name Role Phone Renato Dale MD Primary Care Provider [phone] Stu Shepherd MD Unavailable [phone] Kusum Dinero RN Unavailable [phone] Troy Avalos MD Primary Care Provider [phone] Encounter Details Date Type Department Care Team (Late st Contact Info) Description 06/06/2018 MyChart Message Enc [facility] Medical Group Family & Internal Medicine [facility] [address] [place] [address] [place] [address] [place] [address] RE: Test Results Social History [...] Description 02/07/2025 11:00 AM CDT Office Visit [place] [facility] [facility], [address] [place] [address] Jose Correia MD 3 [facility] [address] [place] [address] documented as of this encounter Visit Diagnoses Not on filedocumented in this encounter Additional Health Concerns Infection Onset Date Last Indicated Resolved Time COVID-19 Rule Out 05/06/2022 05/06/2022 05/06/2022 12:01 PM BIOSECURITY OFFICER documented as of this encounter Care Teams Filter Tender Relationship Specialty [place] [address] [place] [address] PCP - General FAMILY PRACTICE 12/24/15 04/20/23 Troy Avalos MD [address] [place] [address] PCP - General FAMILY PRACTICE 12/31/24 Stu Shepherd MD Three [facility]. [address] [place] [address] [place] Automatic Hemmer CARDIOVASCULAR DISEASE 11/25/16 Kusum Dinero, RN [address] [place] [address] Steel Worker (Ambulatory) REGISTERED NURSE 03/06/19 05/11/23 documented as of this encounter
--- OUTSIDE RECORDS SUMMARY | 2025-02-04 16:53 | XMS_ITS | Encounter Summary ---
Author Organization [facility] Address [facility] [place] [address] Care Team Providers Care Visual Display Manager Name Role Phone Renato Dale MD Primary Care Provider [phone] Stu Shepherd MD Unavailable [phone] Kusum Dinero RN Unavailable [phone] Troy Avalos MD Primary Care Provider [phone] Encounter Details Date Type Department Care Team (Late st Contact Info) Description 11/23/2022 CargoSenset Message Enc [facility] Medical Group Family & Internal Medicine [facility] [address] [place] [address] [place] [address] [place] [address] Weight loss shot Social History [...] 02/07/2025 11:00 AM CDT Office Visit [facility] [address], [address] [place] [address] Jose Correia MD 3 [facility] [place] [address] [place] [address] documented as of this encounter Goals Goal Patient Goal Type Associated Problems Recent Progress Patient-Stated? Author Reduce Sodium Intake Diet On track(2022 1:41 PM CDT) Kusum Ferrell, RN Note: 03/09/22: Patient continues to watch sodium intake of no more than 2,000 mg sodium diet daily. Establish Regular Follow-Ups with PCP / Cardiology General On track(2022 3:11 PM RN CARDIOLOGY) Kusum Ferrell, RN Note: 10/06/22: confirmed appointment with on 11/23/22. 08/17/22: Patient will f/u with on 08/24/22 and Market Research Specialist the last week of July. She did not have date available during call. Establish Plan for Symptom Monitoring- HF General On track(2022 3:11 PM RN CARDIOLOGY) Kusum Ferrell, RN Note: Patient will recognize symptoms of CHF and report to physician should they occur. Daily weight. Report weight gain of > 3 lbs overnight or > 5 lbs in a week Maintain 64 oz fluid restriction Call physician if you experience worsening shortness of breath, edema, fatigue, or cough 08/17/22: Scheduled to see Market Research Specialist at the end of July. Patient is on fluid restriction and doesn't go over 64 ounces. SOB with exertion and she plans on discussing with Market Research Specialist at upcoming appointment since this has been going on for a while now. See note for details. Establish Plan for Symptom Monitoring-HTN General On track(2022 3:11 PM RN CARDIOLOGY) No Kusum Dinero, RN Note: Patient will [...] smoking Lifestyle Not on track(2022 3:11 PM RN CARDIOLOGY) No Kusum Dinero, RN Note: 10/06/22: Patient not ready at this time. 09/08/22: Patient not ready at this time. 03/09/22: Educated on smoking cessation. Patient declines at this time. Stated she is not ready. Manage anxiety Lifestyle On track(2022 3:11 PM RN CARDIOLOGY) No Kusum Dinero, RN Note: 10/06/22: Patient taking medication as prescribed. Sets an alarm but sometimes forgets to take lunch time dose. See note for details. documented as of this encounter Visit Diagnoses Not on filedocumented in this encounter Additional Health Concerns Assessment Noted Time PHQ-9 Depression Total Score: 0 07/17/19 22 1:33 PM CDT documented as of this encounter Care Teams Visual Display Manager Relationship Specialty [place] [address] [place] [address] PCP - General FAMILY PRACTICE 12/24/15 04/20/23 Troy Avalos MD [address] [place] [address] PCP - General FAMILY PRACTICE 12/31/24 Stu Shepherd MD [facility]. [facility] [address] [place] [address] [place] Market Research Specialist CARDIOVASCULAR DISEASE 11/25/16 Ksuum Dinero, RN [address] [place] [address] Manufacturing Engineering Director (Ambulatory) REGISTERED NURSE 03/06/19 05/11/23 documented as of this encounter
--- OUTSIDE RECORDS SUMMARY | 2025-02-04 16:53 | XMS_ITS | Encounter Summary ---
Author Organization [facility] Address [facility] [place] [address] Care Team Providers Care Principal Secretary Name Role Phone Renato Dale MD Primary Care Provider [phone] Stu Shepherd MD Unavailable [phone] Kusum Dinero RN Unavailable [phone] Troy Avalos MD Primary Care Provider [phone] Encounter Details Date Type Department Care Team (Late st Contact Info) Description 10/02/2020 Abstract [place] [facility] [address] Ray Cruz MA Social History [...] 02/07/2025 11:00 AM CDT Office Visit [facility] [address], [address] [place], [place] [id number] Jose Correia MD 3 [facility] [place] [address] [place], [place] [id number] documented as of this encounter Goals Goal Patient Goal Type Associated Problems Recent Progress Patient-Stated? Author Reduce Sodium Intake Diet On track(2022 1:41 PM CDT) Kusum Ferrell, RN Note: 03/09/22: Patient continues to watch sodium intake of no more than 2,000 mg sodium diet daily. Establish Regular Follow-Ups with PCP / Cardiology General On track(2022 3:11 PM DRAPERY HAND) Kusum Ferrell, RN Note: 10/06/22: confirmed appointment with on 11/23/22. 08/17/22: Patient will f/u with on 08/24/22 and Color Expert the last week of July. She did [...] Rule Out 05/06/2022 05/06/2022 05/06/2022 12:01 PM DRAPERY HAND Assessment Noted Time PHQ-9 Depression Total Score: 10 019 7:46 AM CDT documented as of this encounter Care Teams Principal Secretary Relationship Specialty [place] [address] [place] [address] PCP - General FAMILY PRACTICE 12/24/15 04/20/23 Troy Avalos MD [address] [place] [address] PCP - General FAMILY PRACTICE 12/31/24 Stu Shepherd MD [facility] [address] [place] [address] [place] Color Expert CARDIOVASCULAR DISEASE 11/25/16 Kusum Dinero, RN [address] [place] [address] Director Religious Education (Ambulatory) REGISTERED NURSE 03/06/19 05/11/23 documented as of this encounter
--- OUTSIDE RECORDS SUMMARY | 2025-02-04 16:53 | XMS_ITS | Encounter Summary ---
Author Organization [facility] Address [facility] [place] [address] Care Team Providers Care Fan Blade Aligner Name Role Phone Renato Dale MD Primary Care Provider [phone] Stu Shepherd MD Unavailable [phone] Kusum Dinero RN Unavailable [phone] Troy Avalos MD Primary Care Provider [phone] Encounter Details Date Type Department Care Team (Late st Contact Info) Description 01/29/[address] Message Enc [facility] Family & Internal Medicine [facility] [address] [place] [address] [place] [address] [place] [address] MRI med Social History Tobacco [...] Description 02/07/2025 11:00 AM CDT Office Visit [facility] [address] [facility] [address], [place] [address] [place] [id number] Jose Correia MD 3 [facility] [address] [place] [address] documented as of this encounter Goals Goal Patient Goal Type Associated Problems Recent Progress Patient-Stated? Author Reduce Sodium Intake Diet On track(2022 1:41 PM CDT) Kusum Ferrell, RN Note: 03/09/22: Patient continues to watch sodium intake of no more than 2,000 mg sodium diet daily. Establish Regular Follow-Ups with PCP / Cardiology General On track(2022 3:11 PM SALESPERSON BURIAL NEEDS) Kusum Ferrell, RN Note: 10/06/22: confirmed appointment with on 11/23/22. 08/17/22: Patient will f/u with on 08/24/22 and Residential Appliance Repair Technician the last week of July. She did not have date available during call. Establish Plan for Symptom Monitoring- HF General On track(2022 3:11 PM SALESPERSON BURIAL NEEDS) Kusum Ferrell RN Note: Patient will recognize symptoms of CHF and report to physician should they occur. Daily weight. Report weight gain of > 3 lbs overnight or > 5 lbs in a week Maintain 64 oz fluid restriction Call physician if you experience worsening shortness of breath, edema, fatigue, or cough 08/17/22: Scheduled to see Residential Appliance Repair Technician at the end of July. Patient is on fluid restriction and doesn't go over 64 ounces. SOB with exertion and she plans on discussing with Residential Appliance Repair Technician at upcoming appointment since this has been going on for a while now. See note for details. Establish Plan for Symptom Monitoring-HTN General On track(2022 3:11 PM SALESPERSON BURIAL NEEDS) Kusum Ferrell RN Note: Patient will recognize [...] smoking Lifestyle Not on track(2022 3:11 PM SALESPERSON BURIAL NEEDS) Kusum Ferrell RN Note: 10/06/22: Patient not [...] Rule Out 05/06/2022 05/06/2022 05/06/2022 12:01 PM SALESPERSON BURIAL NEEDS Assessment Noted Time PHQ-9 Depression Total Score: 0 07/17/19 22 1:33 PM CDT documented as of this encounter Care Teams Fan Blade Aligner Relationship Specialty [place] [address] [place] [id number] PCP - General FAMILY PRACTICE 12/24/15 04/20/23 Troy Avalos MD [address] [place], [place] [phone] PCP - General FAMILY PRACTICE 12/31/24 Stu Shepherd MD [facility] [address] [place] [address] [place] Residential Appliance Repair Technician CARDIOVASCULAR DISEASE 11/25/16 Kusum Dinero, RN [address] [place] [address] Combine Operator (Ambulatory) REGISTERED NURSE 03/06/19 05/11/23 documented as of this encounter
--- OUTSIDE RECORDS SUMMARY | 2025-02-04 16:53 | XMS_ITS | Encounter Summary ---
Author Organization [facility] Address [facility] [place] [address] Care Team Providers Care Hammer Setter Name Role Phone Renato Dale MD Primary Care Provider [phone] Stu Shepherd MD Unavailable [phone] Kusum Dinero RN Unavailable [phone] Troy Avalos MD Primary Care Provider [phone] Encounter Details Date Type Department Care Team (Late st Contact Info) Description 07/06/2018 Abstract [facility] CONVERSION [address] [place], [place] [id number] , Generic Conversion, Social History Tobacco Use [...] 02/07/2025 11:00 AM CDT Office Visit [facility] [place] [address] [place] [address] Jose Correia MD 3 [facility] [address] [place], [place] [id number] documented as of this encounter Visit Diagnoses Not on filedocumented in this encounter Additional Health Concerns Infection Onset Date Last Indicated Resolved Time COVID-19 Rule Out 05/06/2022 05/06/2022 05/06/2022 12:01 PM GLAZE WIPER documented as of this encounter Care Teams Hammer Setter Relationship Specialty [place] [address] [place] [address] PCP - General FAMILY PRACTICE 12/24/15 04/20/23 Troy Avalos MD [address] [place] [address] PCP - General FAMILY PRACTICE 12/31/24 Stu Shepherd MD Three [facility]. [facility] [address] [place], [place] [phone] [place] Senior Principal Process Engineer CARDIOVASCULAR DISEASE 11/25/16 Kusum Dinero, RN [address] [place] [address] Senior Etl Developer (Ambulatory) REGISTERED NURSE 03/06/19 05/11/23 documented as of this encounter
--- OUTSIDE RECORDS SUMMARY | 2025-02-04 16:53 | XMS_ITS | Encounter Summary ---
Author Organization [facility] Address [facility] [place] [address] Care Team Providers Care Sales Representative Name Role Phone Renato Dale MD Primary Care Provider [phone] Stu Shepherd MD Unavailable [phone] Kusum Dinero RN Unavailable [phone] Troy Avalos MD Primary Care Provider [phone] Encounter Details Date Type Department Care Team (Late st Contact Info) Description 12/10/2022 [place] Message Enc [facility] Family & Internal Medicine [facility] [address] [place] [address] [place] [address] [place] [address] Weight loss shot Social History [...] place to sleep or slept in a fdc (including now)? No 06/15/2022 Education Answer Date [...] Description 02/07/2025 11:00 AM CDT Office Visit [facility] [address] [facility] [address], [place] [address] [place] [address] [id number] Jose Correia MD 3 [facility] [address] [facility] [address] [place], [place] [id number] documented as of this encounter Goals Goal Patient Goal Type Associated Problems Recent Progress Patient-Stated? Author Reduce Sodium Intake Diet On track(2022 1:41 PM CDT) No Kusum Dinero RN Note: 03/09/22: Patient continues to watch sodium intake of no more than 2,000 mg sodium diet daily. Establish Regular Follow-Ups with PCP / Cardiology General On track(2022 3:11 PM HOME HEALTH CLINICIAN) Kusum Ferrell RN Note: 10/06/22: confirmed appointment with on 11/23/22. 08/17/22: Patient will f/u with on 08/24/22 and Csw the last week of July. She did not have date available during call. Establish Plan for Symptom Monitoring- HF General On track(2022 3:11 PM HOME HEALTH CLINICIAN) Kusum Ferrell RN Note: Patient will recognize symptoms of CHF and report to physician should they occur. Daily weight. Report weight gain of > 3 lbs overnight or > 5 lbs in a week Maintain 64 oz fluid restriction Call physician if you experience worsening shortness of breath, edema, fatigue, or cough 08/17/22: Scheduled to see Csw at the end of July. Patient is on fluid restriction and doesn't go over 64 ounces. SOB with exertion and she plans on discussing with Csw at upcoming appointment since this has been going on for a while now. See note for details. Establish Plan for Symptom Monitoring-HTN General On track(2022 3:11 PM HOME HEALTH CLINICIAN) Kusum Ferrell, RN Note: Patient will recognize [...] smoking Lifestyle Not on track(2022 3:11 PM HOME HEALTH CLINICIAN) Kusum Ferrell, RN Note: 10/06/22: Patient not ready at this time. 09/08/22: Patient not ready at this time. 03/09/22: Educated on smoking cessation. Patient declines at this time. Stated she is not ready. Manage anxiety Lifestyle On track(2022 3:11 PM HOME HEALTH CLINICIAN) Kusum Ferrell RN Note: 10/06/22: Patient taking medication as prescribed. Sets an alarm but sometimes forgets to take lunch time dose. See note for details. documented as of this encounter Visit Diagnoses Not on filedocumented in this encounter Additional Health Concerns Assessment Noted Time PHQ-9 Depression Total Score: 0 07/17/19 22 1:33 PM CDT documented as of this encounter Care Teams Sales Representative Relationship Specialty [place] [address] [place] [address] PCP - General FAMILY PRACTICE 12/24/15 04/20/23 Troy Avalos MD [address] [place], [place] [phone] PCP - General FAMILY PRACTICE 12/31/24 Stu Shepherd MD [facility] [address] [place] [address] [place] Csw CARDIOVASCULAR DISEASE 11/25/16 Kusum Dinero, RN [address] [place] [address] Traveling Plant Operator (Ambulatory) REGISTERED NURSE 03/06/19 05/11/23 documented as of this encounter
--- OUTSIDE RECORDS SUMMARY | 2025-02-04 16:53 | XMS_ITS | Encounter Summary ---
Author Organization [facility] Address [facility] [place] [address] Care Team Providers Care Safety Risk Lead Name Role Phone Renato Dale MD Primary Care Provider [phone] Stu Shepherd MD Unavailable [phone] Kusum Dinero RN Unavailable [phone] Troy Avalos MD Primary Care Provider [phone] Encounter Details Date Type Department Care Team (Late st Contact Info) Description 03/11/2023 [address] Message Enc [facility] Family & Internal Medicine [facility] [address] [place] [address] [place] [address] [place] [address] Cold medicine Social History Tobacco [...] place to sleep or slept in a mcfp (including now)? No 06/15/2022 Education Answer Date [...] 02/07/2025 11:00 AM CDT Office Visit [facility] THREE [facility], [facility] [address] [place] [address] Jose Correia MD 3 [facility] [address] [place] [address] documented as of this encounter Goals Goal Patient Goal Type Associated Problems Recent Progress Patient-Stated? Author Reduce Sodium Intake Diet On track(2022 1:41 PM CDT) Kusum Ferrell RN Note: 03/09/22: Patient continues to watch sodium intake of no more than 2,000 mg sodium diet daily. Establish Regular Follow-Ups with PCP / Cardiology General On track(2022 3:11 PM EXAMINING CHAIR ASSEMBLER) Kusum Ferrell, RN Note: 10/06/22: confirmed appointment with on 11/23/22. 08/17/22: Patient will f/u with on 08/24/22 and Textile Engraver the last week of July. She did not have date available during call. Establish Plan for Symptom Monitoring- HF General On track(2022 3:11 PM EXAMINING CHAIR ASSEMBLER) Kusum Ferrell, RN Note: Patient will recognize symptoms of CHF and report to physician should they occur. Daily weight. Report weight gain of > 3 lbs overnight or > 5 lbs in a week Maintain 64 oz fluid restriction Call physician if you experience worsening shortness of breath, edema, fatigue, or cough 08/17/22: Scheduled to see Textile Engraver at the end of July. Patient is on fluid restriction and doesn't go over 64 ounces. SOB with exertion and she plans on discussing with Textile Engraver at upcoming appointment since this has been going on for a while now. See note for details. Establish Plan for Symptom Monitoring-HTN General On track(2022 3:11 PM EXAMINING CHAIR ASSEMBLER) Kusum Ferrell RN Note: Patient will recognize [...] smoking Lifestyle Not on track(2022 3:11 PM EXAMINING CHAIR ASSEMBLER) No Kusum Dinero RN Note: 10/06/22: Patient not ready at this time. 09/08/22: Patient not ready at this time. 03/09/22: Educated on smoking cessation. Patient declines at this time. Stated she is not ready. Manage anxiety Lifestyle On track(2022 3:11 PM EXAMINING CHAIR ASSEMBLER) No Kusum Dinero, RN Note: 10/06/22: Patient taking medication as prescribed. Sets an alarm but sometimes forgets to take lunch time dose. See note for details. documented as of this encounter Visit Diagnoses Not on filedocumented in this encounter Additional Health Concerns Assessment Noted Time PHQ-9 Depression Total Score: 0 07/17/19 22 1:33 PM CDT documented as of this encounter Care Teams Safety Risk Lead Relationship Specialty [place] [address] [place] [address] PCP - General FAMILY PRACTICE 12/24/15 04/20/23 Troy Avalos MD [address] [place], [place] [phone] PCP - General FAMILY PRACTICE 12/31/24 Stu Shepherd MD [facility]. [facility] [address] [place] [address] [place] Textile Engraver CARDIOVASCULAR DISEASE 11/25/16 Kusum Dinero, RN [address] [place] [address] Internal Grinder Tender (Ambulatory) REGISTERED NURSE 03/06/19 05/11/23 documented as of this encounter
--- OUTSIDE RECORDS SUMMARY | 2025-02-04 16:53 | XMS_ITS | Encounter Summary ---
Author Organization [facility] Address [facility] [place] [address] Care Team Providers Care Radio Electrician Name Role Phone Stu Shepherd MD Unavailable [phone] Kusum Dinero RN Unavailable [phone] Troy Avalos MD Primary Care Provider [phone] Encounter Details Date Type Department Care Team (Late st Contact Info) Description 04/21/2023 [place] Message Enc [facility] Family & Internal Medicine [facility] [address] [place] [address] [place] [address] [place] [address] Leaving Social History Tobacco Use [...] place to sleep or slept in a snf (including now)? No 06/15/2022 Education Answer Date [...] 02/07/2025 11:00 AM CDT Office Visit [facility] THREE [facility], [facility] [address] [place], [place] [phone] Jose Correia MD 3 [facility] [address] [place], [place] [phone] documented as of this encounter Goals Goal Patient Goal Type Associated Problems Recent Progress Patient-Stated? Author Reduce Sodium Intake Diet On track(2022 1:41 PM CDT) Kusum Ferrell RN Note: 03/09/22: Patient continues to watch sodium intake of no more than 2,000 mg sodium diet daily. Establish Regular Follow-Ups with PCP / Cardiology General On track(2022 3:11 PM GRADING SUPERVISOR) Kusum Ferrell RN Note: 10/06/22: confirmed appointment with on 11/23/22. 08/17/22: Patient will f/u with on 08/24/22 and Hob Grinder the last week of July. She did not have date available during call. Establish Plan for Symptom Monitoring- HF General On track(2022 3:11 PM GRADING SUPERVISOR) Kusum Ferrell RN Note: Patient will recognize symptoms of CHF and report to physician should they occur. Daily weight. Report weight gain of > 3 lbs overnight or > 5 lbs in a week Maintain 64 oz fluid restriction Call physician if you experience worsening shortness of breath, edema, fatigue, or cough 08/17/22: Scheduled to see Hob Grinder at the end of July. Patient is on fluid restriction and doesn't go over 64 ounces. SOB with exertion and she plans on discussing with Hob Grinder at upcoming appointment since this has been going on for a while now. See note for details. Establish Plan for Symptom Monitoring-HTN General On track(2022 3:11 PM GRADING SUPERVISOR) Kusum Ferrell RN Note: Patient will recognize [...] smoking Lifestyle Not on track(2022 3:11 PM GRADING SUPERVISOR) No Kusum Dinero RN Note: 10/06/22: Patient not ready at this time. 09/08/22: Patient not ready at this time. 03/09/22: Educated on smoking cessation. Patient declines at this time. Stated she is not ready. Manage anxiety Lifestyle On track(2022 3:11 PM GRADING SUPERVISOR) No Kusum Dinero, RN Note: 10/06/22: Patient taking medication as prescribed. Sets an alarm but sometimes forgets to take lunch time dose. See note for details. documented as of this encounter Visit Diagnoses Not on filedocumented in this encounter Additional Health Concerns Assessment Noted Time PHQ-9 Depression Total Score: 0 07/17/19 22 1:33 PM CDT documented as of this encounter Care Teams Radio Electrician Relationship Specialty Start Date End Date Troy Avalos MD [address] [place] [address] PCP - General FAMILY PRACTICE 12/31/24 Stu Shepherd MD [facility] [address] [place], [place] [phone] [place] Hob Grinder CARDIOVASCULAR DISEASE 11/25/16 Kusum Dinero RN [address] [place] [address] Retail Store Clerk (Ambulatory) REGISTERED NURSE 03/06/19 05/11/23 documented as of this encounter
--- OUTSIDE RECORDS SUMMARY | 2025-02-04 16:53 | XMS_ITS | Clinical Summary ---
Author Organization [facility] Address [facility] [place] [address] Care Team Providers Care Boxer Operator Name Role Phone Stu Shepherd MD Unavailable [phone] Troy Avalos MD Primary Care Provider [phone] Allergies Active Allergy Reactions Criticality Noted Date [...] of axillary vein of right upper extremity ([facility]) TAKE 1 TABLET(20 MG) BY MOUTH DAILY [...] Problem Noted Date Diagnosed Date Emphysema lung ([facility]/HCC) 09/17/2022 Hidradenitis suppurativa 01/26/2022 Impingement syndrome of left shoulder 07/19/2021 Assessment & Plan (08/26/2021 9:19 AM CDT): No evidence of rotator cuff tear noted on MR arthrogram. Begin formal physical therapy in [place]. Follow-up in 6 weeks for repeat evaluation. [...] thrombosis (DVT) o f right lower extremity ([facility]) 06/19/2021 Assessment & Plan (07/19/2021 10:37 AM [...] of distal vein of left lower extremity ([facility]) 09/18/2018 Assessment & Plan (12/12/2020 2:11 PM CDT): Continue anticoagulation with Xarelto. Assessment & Plan (11/14/2020 11:21 AM CDT): Continue anticoagulation with Xarelto. Pulmonary HTN ([facility]) 06/18/2018 Assessment & Plan (09/03/2021 12:42 PM [...] exercise. Heart failure with preserved ejection fraction ([facility]) 07/21/2017 Assessment & Plan (12/12/2020 2:10 PM [...] furosemide. 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 Continue metoprolol. Degeneration of intervertebral disc 12/01/2015 [...] Type Department Care Team Description 01/25/2025 Telephone [facility] [address] [facility], [address] [address] Fernanda Guillen, RMA Consult from Last 3 [...] 02/07/2025 11:00 AM CDT [facility] [address] [address] Jose Correia MD [facility] [address] [place], [place] [id number] Health Maintenance Due Date Last Done Comments [...] Cancer Screening with HPV 04/30/2024 PHQ-2 (Physician [place]) 05/02/2024 COVID-19 Vaccine ( - season) 2024 [...] / Cardiology General On track(2022 3:11 PM RECEPTIONIST AIRLINE LOUNGE) Kusum Ferrell RN Note: 10/06/22: confirmed appointment with on 11/23/22. 08/17/22: Patient will f/u with on 08/24/22 and Box Office Manager the last week of July. She did not have date available during call. Establish Plan for Symptom Monitoring- HF General On track(2022 3:11 PM RECEPTIONIST AIRLINE LOUNGE) Kusum Ferrell RN Note: Patient will recognize symptoms of CHF and report to physician should they occur. Daily weight. Report weight gain of > 3 lbs overnight or > 5 lbs in a week Maintain 64 oz fluid restriction Call physician if you experience worsening shortness of breath, edema, fatigue, or cough 08/17/22: Scheduled to see Box Office Manager at the end of July. Patient is on fluid restriction and doesn't go over 64 ounces. SOB with exertion and she plans on discussing with Box Office Manager at upcoming appointment since this has been going on for a while now. See note for details. Establish Plan for Symptom Monitoring-HTN General On track(2022 3:11 PM RECEPTIONIST AIRLINE LOUNGE) Kusum Ferrell RN Note: Patient will recognize [...] smoking Lifestyle Not on track(2022 3:11 PM RECEPTIONIST AIRLINE LOUNGE) Kusum Ferrell RN Note: 10/06/22: Patient not ready at this time. 09/08/22: Patient not ready at this time. 03/09/22: Educated on smoking cessation. Patient declines at this time. Stated she is not ready. Manage anxiety Lifestyle On track(2022 3:11 PM RECEPTIONIST AIRLINE LOUNGE) Kusum Ferrell RN Note: 10/06/22: Patient taking [...] 245(H) <200.0 MG/DL 08/24/2022 10:37 AM CDT [facility] TRIGLYCERIDES 238(H) <150 MG/DL 08/24/2022 10:37 AM CDT [facility] HDL 38(L) >40.0 MG/DL 08/24/2022 10:37 AM CDT [facility] LDL (CALCULATED) 159(H) <100 MG/DL 08/24/2022 10:37 AM CDT [facility] NON HDL CHOLESTEROL 207(H) <130 MG/DL 08/24/2022 10:37 AM CDT [facility] CHOL/HDL RATIO 6.4(H) 0.0 - 4.5 08/24/2022 10:37 AM CDT [facility] VLDL CALCULATION 48 5 - 55 MG/DL 08/24/2022 10:37 AM CDT [facility] LIPID INTERPRETATION 08/24/2022 10:37 AM CDT [facility] Comment: NIH CONCENSUS REPORT RECOMMENDATIONS: ADULT CHILD LOW RISK: CHOLESTEROL <200 <170 TRIGLYCERIDE <150 --- HDL >=60 --- LDL <100 <110 BORDERLINE: CHOLESTEROL 200-239 170-199 TRIGLYCERIDE 150-199 --- HDL 40-59 --- LDL 100-159 110-129 HIGH RISK: CHOLESTEROL >=240 >=200 TRIGLYCERIDE >=200 --- HDL <40 --- LDL >=160 >=130 08/24/2022 9:50 AM CDT Renato Dale MD LABORATORY Final Resul t [facility] [address] [place] [address], * MAMMOGRAM GENERIC (05/01/2021) Anatomical Region Laterality Modality Other 05/01/2021 Narrative 05/01/2021 Ordered by an unspecified provider. us Documents Scanned SCANNING Final Result * PAP SMEAR (04/30/2019) 04/30/2019 us Doc Med Group Scanned SCANNING Final Resu lt from Last 3 Months or Most Recently Relevant to Health Maintenance Insurance MEDICAID [facility] MEDICARE MEDICAID Care Teams Boxer Operator Relationship Specialty Start Date End Date Troy Avalos MD [address] [place] [address] PCP - General FAMILY PRACTICE 12/31/24 Stu Shepherd MD [id number] [place] [address] [place] Box Office Manager CARDIOVASCULAR DISEASE 11/25/16
--- OUTSIDE RECORDS SUMMARY | 2025-02-04 16:53 | XMS_ITS | Encounter Summary ---
Author Organization [facility] Address [facility] [place] [address] Care Team Providers Care Puff Iron Operator Name Role Phone Renato Dale MD Primary Care Provider [phone] Stu Shepherd MD Unavailable [phone] Kusum Dinero RN Unavailable [phone] Troy Avalos MD Primary Care Provider [phone] Encounter Details Date Type Department Care Team (Late st Contact Info) Description 01/29/2022 Phoenix Biotechnologyt Message Enc [facility] Medical Group Orthopaedic Surgery-White [address] [place] [address] [place] [address] [place] [address] Question regarding MRI ARTHRO SHOULDER [...] Description 02/07/2025 11:00 AM CDT Office Visit [facility] [address] [facility] [address], [address] [place] [address] [id number] Jose Correia MD 3 [facility] [place] [address] [place] [address] [id number] documented as of this encounter Goals Goal Patient Goal Type Associated Problems Recent Progress Patient-Stated? Author Reduce Sodium Intake Diet On track(2022 1:41 PM CDT) Kusum Ferrell, ROBERT Note: 03/09/22: Patient continues to watch sodium intake of no more than 2,000 mg sodium diet daily. Establish Regular Follow-Ups with PCP / Cardiology General On track(2022 3:11 PM GUEST SERVICES MANAGER) Kusum Ferrell, RN Note: 10/06/22: confirmed appointment with on 11/23/22. 08/17/22: Patient will f/u with on 08/24/22 and Velvet Weaver the last week of July. She did not have date available during call. Establish Plan for Symptom Monitoring- HF General On track(2022 3:11 PM GUEST SERVICES MANAGER) Kusum Ferrell RN Note: Patient will recognize symptoms of CHF and report to physician should they occur. Daily weight. Report weight gain of > 3 lbs overnight or > 5 lbs in a week Maintain 64 oz fluid restriction Call physician if you experience worsening shortness of breath, edema, fatigue, or cough 08/17/22: Scheduled to see Velvet Weaver at the end of July. Patient is on fluid restriction and doesn't go over 64 ounces. SOB with exertion and she plans on discussing with Velvet Weaver at upcoming appointment since this has been going on for a while now. See note for details. Establish Plan for Symptom Monitoring-HTN General On track(2022 3:11 PM GUEST SERVICES MANAGER) Kusum Ferrell RN Note: Patient will [...] smoking Lifestyle Not on track(2022 3:11 PM GUEST SERVICES MANAGER) Kusum Ferrell RN Note: 10/06/22: Patient [...] Rule Out 05/06/2022 05/06/2022 05/06/2022 12:01 PM GUEST SERVICES MANAGER Assessment Noted Time PHQ-9 Depression Total Score: 0 07/17/19 22 1:33 PM CDT documented as of this encounter Care Teams Puff Iron Operator Relationship Specialty [place] [address] [place] [address] PCP - General FAMILY PRACTICE 12/24/15 04/20/23 Troy Avalos MD [address] [place] [address] PCP - General FAMILY PRACTICE 12/31/24 Stu Shepherd MD [facility] [address] [place] [address] [place] Velvet Weaver CARDIOVASCULAR DISEASE 11/25/16 Kusum Dinero, RN [address] [place] [address] Web Search Evaluator (Ambulatory) REGISTERED NURSE 03/06/19 05/11/23 documented as of this encounter
--- OUTSIDE RECORDS SUMMARY | 2025-02-04 16:53 | XMS_ITS | Encounter Summary ---
Author Organization [facility] Address [facility] [place] [address] Care Team Providers Care Marine Structural Designer Name Role Phone Renato Dale MD Primary Care Provider [phone] Stu Shepherd MD Unavailable [phone] Kusum Dinero RN Unavailable [phone] Troy Avalos MD Primary Care Provider [phone] Encounter Details Date Type Department Care Team (Late st Contact Info) Description 01/13/2023 Helium Systemst Message Enc [facility] Medical Group Family & Internal Medicine [facility] [address] [place] [address] [place] [address] [place] [address] Nasal spray Social History Tobacco [...] 02/07/2025 11:00 AM CDT Office Visit [facility] THREE [facility], [facility] [address] [place] [address] Jose Correia MD 3 [facility] [place] [address] [place] [address] documented as of this encounter Goals Goal Patient Goal Type Associated Problems Recent Progress Patient-Stated? Author Reduce Sodium Intake Diet On track(2022 1:41 PM CDT) Kusum Ferrell RN Note: 03/09/22: Patient continues to watch sodium intake of no more than 2,000 mg sodium diet daily. Establish Regular Follow-Ups with PCP / Cardiology General On track(2022 3:11 PM POWER GENERATION PLANT OPERATOR) Kusum Ferrell, RN Note: 10/06/22: confirmed appointment with on 11/23/22. 08/17/22: Patient will f/u with on 08/24/22 and Manager Planning the last week of July. She did not have date available during call. Establish Plan for Symptom Monitoring- HF General On track(2022 3:11 PM POWER GENERATION PLANT OPERATOR) Kusum Ferrell, RN Note: Patient will recognize symptoms of CHF and report to physician should they occur. Daily weight. Report weight gain of > 3 lbs overnight or > 5 lbs in a week Maintain 64 oz fluid restriction Call physician if you experience worsening shortness of breath, edema, fatigue, or cough 08/17/22: Scheduled to see Manager Planning at the end of July. Patient is on fluid restriction and doesn't go over 64 ounces. SOB with exertion and she plans on discussing with Manager Planning at upcoming appointment since this has been going on for a while now. See note for details. Establish Plan for Symptom Monitoring-HTN General On track(2022 3:11 PM POWER GENERATION PLANT OPERATOR) Kusum Ferrell RN Note: Patient will [...] smoking Lifestyle Not on track(2022 3:11 PM POWER GENERATION PLANT OPERATOR) No Kusum Dinero RN Note: 10/06/22: Patient not ready at this time. 09/08/22: Patient not ready at this time. 03/09/22: Educated on smoking cessation. Patient declines at this time. Stated she is not ready. Manage anxiety Lifestyle On track(2022 3:11 PM POWER GENERATION PLANT OPERATOR) No Kusum Dinero, RN Note: 10/06/22: Patient taking medication as prescribed. Sets an alarm but sometimes forgets to take lunch time dose. See note for details. documented as of this encounter Visit Diagnoses Not on filedocumented in this encounter Additional Health Concerns Assessment Noted Time PHQ-9 Depression Total Score: 0 07/17/19 22 1:33 PM CDT documented as of this encounter Care Teams Marine Structural Designer Relationship Specialty [place] [address] [place] [address] PCP - General FAMILY PRACTICE 12/24/15 04/20/23 Troy Avalos MD [address] [place], [place] [id number] PCP - General FAMILY PRACTICE 12/31/24 Stu Shepherd MD [facility]. [facility] [address] [place] [address] [place] Manager Planning CARDIOVASCULAR DISEASE 11/25/16 Kusum Dinero, RN [address] [place] [address] Technical Proposal Writer (Ambulatory) REGISTERED NURSE 03/06/19 05/11/23 documented as of this encounter
--- OUTSIDE RECORDS SUMMARY | 2025-02-04 16:53 | XMS_ITS | Encounter Summary ---
Author Organization [facility] Address [facility] [place] [address] Care Team Providers Care Health Administrator Name Role Phone Renato Dale MD Primary Care Provider [phone] Stu Shepherd MD Unavailable [phone] Kusum Dinero RN Unavailable [phone] Troy Avalos MD Primary Care Provider [phone] Encounter Details Date Type Department Care Team (Late st Contact Info) Description 12/15/2021 Gojit Message Enc [facility] Medical Group Orthopaedic Surgery-[place] [address] [place] [address] [place] [address] [place] [address] Shoulder and arm Social History [...] Description 02/07/2025 11:00 AM CDT Office Visit [facility] THREE [facility] [address], [address] [place] [id number] Jose Correia MD 3 [facility] [place] [address] [place] [address] documented as of this encounter Goals Goal Patient Goal Type Associated Problems Recent Progress Patient-Stated? Author Reduce Sodium Intake Diet On track(2022 1:41 PM CDT) Kusum Ferrell, RN Note: 03/09/22: Patient continues to watch sodium intake of no more than 2,000 mg sodium diet daily. Establish Regular Follow-Ups with PCP / Cardiology General On track(2022 3:11 PM EYEGLASS MAKER) Kusum Ferrell, RN Note: 10/06/22: confirmed appointment with on 11/23/22. 08/17/22: Patient will f/u with on 08/24/22 and Program Manager the last week of July. She did not have date available during call. Establish Plan for Symptom Monitoring- HF General On track(2022 3:11 PM EYEGLASS MAKER) Kusum Ferrell RN Note: Patient will recognize symptoms of CHF and report to physician should they occur. Daily weight. Report weight gain of > 3 lbs overnight or > 5 lbs in a week Maintain 64 oz fluid restriction Call physician if you experience worsening shortness of breath, edema, fatigue, or cough 08/17/22: Scheduled to see Program Manager at the end of July. Patient is on fluid restriction and doesn't go over 64 ounces. SOB with exertion and she plans on discussing with Program Manager at upcoming appointment since this has been going on for a while now. See note for details. Establish Plan for Symptom Monitoring-HTN General On track(2022 3:11 PM EYEGLASS MAKER) Kusum Ferrell, RN Note: Patient will [...] smoking Lifestyle Not on track(2022 3:11 PM EYEGLASS MAKER) Kusum Ferrell RN Note: 10/06/22: Patient not [...] Rule Out 05/06/2022 05/06/2022 05/06/2022 12:01 PM EYEGLASS MAKER Assessment Noted Time PHQ-9 Depression Total Score: 0 07/17/19 22 1:33 PM CDT documented as of this encounter Care Teams Health Administrator Relationship Specialty [place] [address] [place] [address] PCP - General FAMILY PRACTICE 12/24/15 04/20/23 Troy Avalos MD [address] [place] [address] PCP - General FAMILY PRACTICE 12/31/24 Stu Shepherd MD [facility] [address] [place] [address] [place] Program Manager CARDIOVASCULAR DISEASE 11/25/16 Kusum Dinero, RN [address] [place] [address] Electronic Pagination System Operator (Ambulatory) REGISTERED NURSE 03/06/19 05/11/23 documented as of this encounter
--- OUTSIDE RECORDS SUMMARY | 2025-02-04 16:53 | XMS_ITS | Encounter Summary ---
Author Organization [facility] Address [facility] [place] [address] Care Team Providers Care Tank Cleaner Name Role Phone Renato Dale MD Primary Care Provider [phone] Stu Shepherd MD Unavailable [phone] Kusum Dinero RN Unavailable [phone] Troy Avalos MD Primary Care Provider [phone] Encounter Details Date Type Department Care Team (Late st Contact Info) Description 01/31/2023 [place] Technologiest Message Enc [facility] Medical Group Family & Internal Medicine [facility] [address] [place] [address] [place] [address] [place] [address] Wegovy Social History Tobacco Use [...] 02/07/2025 11:00 AM CDT Office Visit [facility] THREE [facility] [address] [place] [address] Jose Correia MD 3 [facility] [place] [address] [place] [address] documented as of this encounter Goals Goal Patient Goal Type Associated Problems Recent Progress Patient-Stated? Author Reduce Sodium Intake Diet On track(2022 1:41 PM CDT) Kusum Ferrell RN Note: 03/09/22: Patient continues to watch sodium intake of no more than 2,000 mg sodium diet daily. Establish Regular Follow-Ups with PCP / Cardiology General On track(2022 3:11 PM MANAGER INTERMEDIATE) Kusum Ferrell, RN Note: 10/06/22: confirmed appointment with on 11/23/22. 08/17/22: Patient will f/u with on 08/24/22 and Sba Underwriter the last week of July. She did not have date available during call. Establish Plan for Symptom Monitoring- HF General On track(2022 3:11 PM MANAGER INTERMEDIATE) Kusum Ferrell, RN Note: Patient will recognize symptoms of CHF and report to physician should they occur. Daily weight. Report weight gain of > 3 lbs overnight or > 5 lbs in a week Maintain 64 oz fluid restriction Call physician if you experience worsening shortness of breath, edema, fatigue, or cough 08/17/22: Scheduled to see Sba Underwriter at the end of July. Patient is on fluid restriction and doesn't go over 64 ounces. SOB with exertion and she plans on discussing with Sba Underwriter at upcoming appointment since this has been going on for a while now. See note for details. Establish Plan for Symptom Monitoring-HTN General On track(2022 3:11 PM MANAGER INTERMEDIATE) Kusum Ferrell RN Note: Patient will recognize [...] Lifestyle Not on track(2022 3:11 PM MANAGER INTERMEDIATE) No Kusum Dinero RN Note: 10/06/22: Patient not ready at this time. 09/08/22: Patient not ready at this time. 03/09/22: Educated on smoking cessation. Patient declines at this time. Stated she is not ready. Manage anxiety Lifestyle On track(2022 3:11 PM MANAGER INTERMEDIATE) No Kusum Dinero, RN Note: 10/06/22: Patient taking medication as prescribed. Sets an alarm but sometimes forgets to take lunch time dose. See note for details. documented as of this encounter Visit Diagnoses Not on filedocumented in this encounter Additional Health Concerns Assessment Noted Time PHQ-9 Depression Total Score: 0 07/17/19 22 1:33 PM CDT documented as of this encounter Care Teams Tank Cleaner Relationship Specialty [place] [address] [place] [address] PCP - General FAMILY PRACTICE 12/24/15 04/20/23 Troy Avalos MD [address] [place] [address] PCP - General FAMILY PRACTICE 12/31/24 Stu Shepherd MD [facility] [address] [place], [place] [id number] [place] Sba Underwriter CARDIOVASCULAR DISEASE 11/25/16 Kusum Dinero, RN [address] [place] [address] Cooperative Education Director (Ambulatory) REGISTERED NURSE 03/06/19 05/11/23 documented as of this encounter
--- OUTSIDE RECORDS SUMMARY | 2025-02-04 16:53 | XMS_ITS | Encounter Summary ---
Author Organization [facility] Address [facility] [place] [address] Care Team Providers Care Paramedical Aide Name Role Phone Renato Dale MD Primary Care Provider [phone] Stu Shepherd MD Unavailable [phone] Kusum Dinero RN Unavailable [phone] Troy Avalos MD Primary Care Provider [phone] Encounter Details Date Type Department Care Team (Late st Contact Info) Description 11/18/2020 [place]attio Message [facility] [address] [place] [address] Stu Shepherd MD [facility] [address] [place] [address] RE: Medication Questions Social History [...] Description 02/07/2025 11:00 AM CDT [facility] THREE [facility], [address] [place] [id number] Jose Correia MD 3 [facility] [place] [address] [place] [id number] documented as of this encounter Goals Goal Patient Goal Type Associated Problems Recent Progress Patient-Stated? Author Reduce Sodium Intake Diet On track(2022 1:41 PM CDT) Kusum Ferrell, RN Note: 03/09/22: Patient continues to watch sodium intake of no more than 2,000 mg sodium diet daily. Establish Regular Follow-Ups with PCP / Cardiology General On track(2022 3:11 PM COOK ROAST) Kusum Ferrell, RN Note: 10/06/22: confirmed appointment with on 11/23/22. 08/17/22: Patient will f/u with on 08/24/22 and Loss Claim Clerk the last week of July. She did not have date available during call. Quit smoking Lifestyle Not on track(2022 3:11 PM COOK ROAST) Kusum Ferrell R, RN Note: 10/06/22: Patient [...] Rule Out 05/06/2022 05/06/2022 05/06/2022 12:01 PM COOK ROAST Assessment Noted Time PHQ-9 Depression Total Score: 5 11/15/19 21 8:24 AM CDT documented as of this encounter Care Teams Paramedical Aide Relationship Specialty [place] [address] [place] [address] PCP - General FAMILY PRACTICE 12/24/15 04/20/23 Troy Avalos MD [address] [place] [address] PCP - General FAMILY PRACTICE 12/31/24 Stu Shepherd MD [facility] [address] [place] [address] [place] Loss Claim Clerk CARDIOVASCULAR DISEASE 11/25/16 Kusum Dinero, RN [address] [place] [address] Justice (Ambulatory) REGISTERED NURSE 03/06/19 05/11/23 documented as of this encounter
--- OUTSIDE RECORDS SUMMARY | 2025-02-04 16:53 | XMS_ITS | Encounter Summary ---
Author Organization [facility] Address [facility] [place] [address] Care Team Providers Care Molder Apprentice Name Role Phone Renato Dale MD Primary Care Provider [phone] Stu Shepherd MD Unavailable [phone] Kusum Dinero RN Unavailable [phone] Troy Avalos MD Primary Care Provider [phone] Encounter Details Date Type Department Care Team (Late st Contact Info) Description 10/07/2018 Abstract [facility] [address] [place] [address] , Generic Conversion, Social History Tobacco Use [...] Description 02/07/2025 11:00 AM CDT Office Visit [place] [facility] [facility], [address] [place] [address] Jose Correia MD 3 [facility] [address] [place] [address] documented as of this encounter Visit Diagnoses Not on filedocumented in this encounter Additional Health Concerns Infection Onset Date Last Indicated Resolved Time COVID-19 Rule Out 05/06/2022 05/06/2022 05/06/2022 12:01 PM CLICKING MACHINE OPERATOR Assessment Noted Time PHQ-9 Depression Total Score: 10 019 7:46 AM CDT documented as of this encounter Care Teams Molder Apprentice Relationship Specialty [place] [address] [place] [address] PCP - General FAMILY PRACTICE 12/24/15 04/20/23 Troy Avalos MD [address] [place] [address] PCP - General FAMILY PRACTICE 12/31/24 Stu Shepherd MD Three [facility]. [address] [place] [address] [place] Wage Conciliator CARDIOVASCULAR DISEASE 11/25/16 Kusum Dinero, RN [address] [place] [address] Diagnostic Medical Sonographer (Ambulatory) REGISTERED NURSE 03/06/19 05/11/23 documented as of this encounter
--- OUTSIDE RECORDS SUMMARY | 2025-02-04 16:53 | XMS_ITS | Encounter Summary ---
Author Organization [facility] Address [facility] [place] [address] Care Team Providers Care Zipper Machine Operator Name Role Phone Renato Dale MD Primary Care Provider [phone] Stu Shepherd MD Unavailable [phone] Kusum Dinero RN Unavailable [phone] Troy Avalos MD Primary Care Provider [phone] Reason for Visit * Reason Onset Date Comments Advise 01/27/2018 Encounter Details Date Type Department Care Team (Latest Contact Info) Description 01/27/2018 Bareed[employer] Message [employer] CARDIOVASCULAR [employer] AT [address] [address] Ifeanyi Nash MD Follow Up/Update [...] Description 02/07/2025 11:00 AM CDT Office Visit [place] [facility] THREE [facility], [address] [place] [address] Joes Correia MD 3 [facility] [address] [place], [place] [id number] documented as of this encounter Visit Diagnoses Not on filedocumented in this encounter Additional Health Concerns Infection Onset Date Last Indicated Resolved Time COVID-19 Rule Out 05/06/2022 05/06/2022 05/06/2022 12:01 PM TABLE KEEPER documented as of this encounter Care Teams Zipper Machine Operator Relationship Specialty [place] [address] [place] [address] PCP - General FAMILY PRACTICE 12/24/15 04/20/23 Troy Avalos MD [address] [place] [address] PCP - General FAMILY PRACTICE 12/31/24 Stu Shepherd MD Three [facility]. [address] [place], [place] [address] [place] Extension Associate CARDIOVASCULAR DISEASE 11/25/16 Kusum Dinero, RN [address] [place] [address] Sole Tier (Ambulatory) REGISTERED NURSE 03/06/19 05/11/23 documented as of this encounter
--- OUTSIDE RECORDS SUMMARY | 2025-02-04 16:53 | XMS_ITS | Encounter Summary ---
Author Organization [facility] Address [facility] [place] [address] Care Team Providers Care Industrial Machinery Mechanic Name Role Phone Renato Dale MD Primary Care Provider [phone] Stu Shepherd MD Unavailable [phone] Kusum Dinero RN Unavailable [phone] Troy Avalos MD Primary Care Provider [phone] Encounter Details Date Type Department Care Team (Late st Contact Info) Description 12/30/2016 Abstract [facility] [address] [place] [address] Ray Cruz MA Social History [...] 02/07/2025 11:00 AM CDT [facility] [id number] Jose Correia MD 3 [facility] [address] [place] [address] documented as of this encounter Procedures Procedure [...] Rule Out 05/06/2022 05/06/2022 05/06/2022 12:01 PM ONCOLOGY SOCIAL WORK documented as of this encounter Care Teams Industrial Machinery Mechanic Relationship Specialty [place] [address] [place] [address] PCP - General FAMILY PRACTICE 12/24/15 04/20/23 Troy Avalos MD [address] [place] [address] PCP - General FAMILY PRACTICE 12/31/24 Stu Shepherd MD [facility] [address] [place] [address] [place] Med Dir CARDIOVASCULAR DISEASE 11/25/16 Kusum Dinero, RN [address] [place] [address] Locksmith Apprentice (Ambulatory) REGISTERED NURSE 03/06/19 05/11/23 documented as of this encounter
--- OUTSIDE RECORDS SUMMARY | 2025-02-04 16:53 | XMS_ITS | Clinical Summary ---
Author Organization [facility] Address [address] [facility] [address] [place] [address] Phone Care Team Providers Care Ux Design Manager Name Role Phone Anoop Salcedo MD Unavailable Troy Avalos MD Primary Care Provider [phone] Allergies Active Allergy Reactions Criticality Noted Date [...] Comments Blood Pressure 128/72 05/31/2023 2:14 PM PLANER OPERATOR Pulse 77 05/31/2023 2:14 PM PLANER OPERATOR Temperature 35.7 C (96.3 F) 05/31/2023 2:14 PM PLANER OPERATOR Respiratory Rate 16 05/31/2023 2:14 PM PLANER OPERATOR Oxygen Saturation 95% 05/31/2023 2:14 PM PLANER OPERATOR Inhaled Oxygen Concentration - - Weight 109.3 kg (240 lb 14.4 oz) 05/31/2023 2:14 PM PLANER OPERATOR Height 167.6 cm (5' 6) 05/31/2023 2:14 PM PLANER OPERATOR Body Mass Index 38.88 05/31/2023 2:14 PM PLANER OPERATOR Plan of Treatment Health Maintenance Due Date [...] MEDICAID [place]IC[place] C HUMANA Care Teams Ux Design Manager Relationship Specialty Start Date End Date Troy Avalos MD [address] [place] [address] PCP - General Family Medicine 05/31/23 Anoop Salcedo MD [address] [place] [address] Consulting Physician Pulmonary Disease 12/31/21
--- OUTSIDE RECORDS SUMMARY | 2025-02-04 16:53 | XMS_ITS | Encounter Summary ---
Author Organization [facility] Address [address] [place] [address] Care Team Providers Care Long Chain Quiller Tender Name Role Phone Renato Dale MD Primary Care Provider [phone] Stu Shepherd MD Unavailable [phone] Kusum Dinero RN Unavailable [phone] Troy Avalos MD Primary Care Provider [phone] Encounter Details Date Type Department Care Team (Late st Contact Info) Description 10/27/2022 MyChart Message Enc [facility] [address] [place] [address] [employer], [facility] Provider Air Quality Message Social History Tobacco [...] 02/07/2025 11:00 AM CDT Office Visit [facility] [facility], [address] [place] [address] Jose Correia MD [address] [facility] [address] [facility] [place] [address] documented as of this encounter Goals Goal Patient Goal Type Associated Problems Recent Progress Patient-Stated? Author Reduce Sodium Intake Diet On track(2022 1:41 PM CDT) Kusum Ferrell RN Note: 03/09/22: Patient continues to watch sodium intake of no more than 2,000 mg sodium diet daily. Establish Regular Follow-Ups with PCP / Cardiology General On track(2022 3:11 PM JACQUARD PLATE MAKER) Kusum Ferrell, RN Note: 10/06/22: confirmed appointment with on 11/23/22. 08/17/22: Patient will f/u with on 08/24/22 and Can Sterilizer the last week of July. She did not have date available during call. Establish Plan for Symptom Monitoring- HF General On track(2022 3:11 PM JACQUARD PLATE MAKER) Kusum Ferrell, RN Note: Patient will recognize symptoms of CHF and report to physician should they occur. Daily weight. Report weight gain of > 3 lbs overnight or > 5 lbs in a week Maintain 64 oz fluid restriction Call physician if you experience worsening shortness of breath, edema, fatigue, or cough 08/17/22: Scheduled to see Can Sterilizer at the end of July. Patient is on fluid restriction and doesn't go over 64 ounces. SOB with exertion and she plans on discussing with Can Sterilizer at upcoming appointment since this has been going on for a while now. See note for details. Establish Plan for Symptom Monitoring-HTN General On track(2022 3:11 PM JACQUARD PLATE MAKER) Kusum Ferrell RN Note: Patient will [...] smoking Lifestyle Not on track(2022 3:11 PM JACQUARD PLATE MAKER) No Kusum Dinero RN Note: 10/06/22: Patient not ready at this time. 09/08/22: Patient not ready at this time. 03/09/22: Educated on smoking cessation. Patient declines at this time. Stated she is not ready. Manage anxiety Lifestyle On track(2022 3:11 PM JACQUARD PLATE MAKER) No Kusum Dinero, RN Note: 10/06/22: Patient taking medication as prescribed. Sets an alarm but sometimes forgets to take lunch time dose. See note for details. documented as of this encounter Visit Diagnoses Not on filedocumented in this encounter Additional Health Concerns Assessment Noted Time PHQ-9 Depression Total Score: 0 07/17/19 22 1:33 PM CDT documented as of this encounter Care Teams Long Chain Quiller Tender Relationship Specialty [place] [address] [place] [address] PCP - General FAMILY PRACTICE 12/24/15 04/20/23 Troy Avalos MD [address] [place] [address] PCP - General FAMILY PRACTICE 12/31/24 Stu Shepherd MD [facility] [address] [place], [place] [address] [place] Can Sterilizer CARDIOVASCULAR DISEASE 11/25/16 Kusum Dinero, RN [address] [place] [address] Corporate Tax Manager (Ambulatory) REGISTERED NURSE 03/06/19 05/11/23 documented as of this encounter
--- OUTSIDE RECORDS SUMMARY | 2025-02-04 16:53 | XMS_ITS | Encounter Summary ---
Author Organization [facility] Address [facility] [place] [address] Care Team Providers Care Museum Librarian Name Role Phone Renato Dale MD Primary Care Provider [phone] Stu Shepherd MD Unavailable [phone] Kusum Dinero RN Unavailable [phone] Troy Avalos MD Primary Care Provider [phone] Encounter Details Date Type Department Care Team (Late st Contact Info) Description 01/19/2023 Dualogt Message Enc [facility] Medical Group Family & Internal Medicine [facility] [address] [place] [address] [place] [address] [place] [address] ER Visit Social History Tobacco [...] place to sleep or slept in a prison (including now)? No 06/15/2022 Education Answer Date [...] 02/07/2025 11:00 AM CDT Office Visit [facility] THREE [facility], [facility] [address] [place] [address] Jose Correia MD 3 [facility] [address] [place] [address] documented as of this encounter Goals Goal Patient Goal Type Associated Problems Recent Progress Patient-Stated? Author Reduce Sodium Intake Diet On track(2022 1:41 PM CDT) Kusum Ferrell RN Note: 03/09/22: Patient continues to watch sodium intake of no more than 2,000 mg sodium diet daily. Establish Regular Follow-Ups with PCP / Cardiology General On track(2022 3:11 PM ENGINE ROOM HELPER) Kusum Ferrell, RN Note: 10/06/22: confirmed appointment with on 11/23/22. 08/17/22: Patient will f/u with on 08/24/22 and Hazardous Waste Management Specialist the last week of July. She did not have date available during call. Establish Plan for Symptom Monitoring- HF General On track(2022 3:11 PM ENGINE ROOM HELPER) Kusum Ferrell, RN Note: Patient will recognize symptoms of CHF and report to physician should they occur. Daily weight. Report weight gain of > 3 lbs overnight or > 5 lbs in a week Maintain 64 oz fluid restriction Call physician if you experience worsening shortness of breath, edema, fatigue, or cough 08/17/22: Scheduled to see Hazardous Waste Management Specialist at the end of July. Patient is on fluid restriction and doesn't go over 64 ounces. SOB with exertion and she plans on discussing with Hazardous Waste Management Specialist at upcoming appointment since this has been going on for a while now. See note for details. Establish Plan for Symptom Monitoring-HTN General On track(2022 3:11 PM ENGINE ROOM HELPER) Kusum Ferrell RN Note: Patient will recognize [...] smoking Lifestyle Not on track(2022 3:11 PM ENGINE ROOM HELPER) No Kusum Dinero RN Note: 10/06/22: Patient not ready at this time. 09/08/22: Patient not ready at this time. 03/09/22: Educated on smoking cessation. Patient declines at this time. Stated she is not ready. Manage anxiety Lifestyle On track(2022 3:11 PM ENGINE ROOM HELPER) No Kusum Dinero, RN Note: 10/06/22: Patient taking medication as prescribed. Sets an alarm but sometimes forgets to take lunch time dose. See note for details. documented as of this encounter Visit Diagnoses Not on filedocumented in this encounter Additional Health Concerns Assessment Noted Time PHQ-9 Depression Total Score: 0 07/17/19 22 1:33 PM CDT documented as of this encounter Care Teams Museum Librarian Relationship Specialty [place] [address] [place] [address] PCP - General FAMILY PRACTICE 12/24/15 04/20/23 Troy Avalos MD [address] [place], [place] [id number] PCP - General FAMILY PRACTICE 12/31/24 Stu Shepherd MD [facility]. [facility] [address] [place] [address] [place] Hazardous Waste Management Specialist CARDIOVASCULAR DISEASE 11/25/16 Kusum Dinero, RN [address] [place] [address] Assistant Professor Of Surgery (Ambulatory) REGISTERED NURSE 03/06/19 05/11/23 documented as of this encounter
--- OUTSIDE RECORDS SUMMARY | 2025-02-04 16:53 | XMS_ITS | Encounter Summary ---
Author Organization [facility] Address [facility] [place] [address] Care Team Providers Care Torch Heater Name Role Phone Renato Dale MD Primary Care Provider [phone] Stu Shepherd MD Unavailable [phone] Kusum Dinero RN Unavailable [phone] Troy Avalos MD Primary Care Provider [phone] Encounter Details Date Type Department Care Team (Late st Contact Info) Description 05/25/2017 Abstract [facility] at [address] [address] Ray Cruz MA Social History [...] 02/07/2025 11:00 AM CDT Office Visit [facility], [facility] [address] [place] [address] Jose Correia MD 3 [facility] [address] [place] [address] documented as of this encounter Procedures Procedure [...] Rule Out 05/06/2022 05/06/2022 05/06/2022 12:01 PM SENIOR OPERATOR documented as of this encounter Care Teams Torch Heater Relationship Specialty [place] [address] [place] [address] PCP - General FAMILY PRACTICE 12/24/15 04/20/23 Troy Avalos MD [address] [place], [place] [phone] PCP - General FAMILY PRACTICE 12/31/24 Stu Shepherd MD [facility] [address] [place] [address] [place] Hot Tamale Worker CARDIOVASCULAR DISEASE 11/25/16 Kusum Dinero, RN [address] [place] [address] Knit Tubing Dyer (Ambulatory) REGISTERED NURSE 03/06/19 05/11/23 documented as of this encounter
--- OUTSIDE RECORDS SUMMARY | 2025-02-04 16:53 | XMS_ITS | Encounter Summary ---
Author Organization [facility] Address [facility] [place] [address] Care Team Providers Care Carton Stapler Name Role Phone Renato Dale MD Primary Care Provider [phone] Stu Shepherd MD Unavailable [phone] Kusum Dinero RN Unavailable [phone] Troy Avalos MD Primary Care Provider [phone] Encounter Details Date Type Department Care Team (Late st Contact Info) Description 01/29/2022 Blend Biosc[employer] Message Enc [facility] Medical Group Family & Internal Medicine [facility] [address] [place] [address] [place] [address] [place] [address] MRI Med Social History Tobacco [...] CDT Office Visit [facility] [address] [facility] [address], [place] [address] [place] [id number] Jose Correia MD 3 [facility] [place] [address] [place] [address] documented as of this encounter Goals Goal Patient Goal Type Associated Problems Recent Progress Patient-Stated? Author Reduce Sodium Intake Diet On track(2022 1:41 PM CDT) Kusum Ferrell, RN Note: 03/09/22: Patient continues to watch sodium intake of no more than 2,000 mg sodium diet daily. Establish Regular Follow-Ups with PCP / Cardiology General On track(2022 3:11 PM GRANULATING BLENDER) Kusum Ferrell, RN Note: 10/06/22: confirmed appointment with on 11/23/22. 08/17/22: Patient will f/u with on 08/24/22 and Automotive General Manager the last week of July. She did not have date available during call. Establish Plan for Symptom Monitoring- HF General On track(2022 3:11 PM GRANULATING BLENDER) Kusum Ferrell RN Note: Patient will recognize symptoms of CHF and report to physician should they occur. Daily weight. Report weight gain of > 3 lbs overnight or > 5 lbs in a week Maintain 64 oz fluid restriction Call physician if you experience worsening shortness of breath, edema, fatigue, or cough 08/17/22: Scheduled to see Automotive General Manager at the end of July. Patient is on fluid restriction and doesn't go over 64 ounces. SOB with exertion and she plans on discussing with Automotive General Manager at upcoming appointment since this has been going on for a while now. See note for details. Establish Plan for Symptom Monitoring-HTN General On track(2022 3:11 PM GRANULATING BLENDER) Kusum Ferrell RN Note: Patient will recognize [...] smoking Lifestyle Not on track(2022 3:11 PM GRANULATING BLENDER) Kusum Ferrell RN Note: 10/06/22: Patient not [...] Rule Out 05/06/2022 05/06/2022 05/06/2022 12:01 PM GRANULATING BLENDER Assessment Noted Time PHQ-9 Depression Total Score: 0 07/17/19 22 1:33 PM CDT documented as of this encounter Care Teams Carton Stapler Relationship Specialty [place] [address] [place] [id number] PCP - General FAMILY PRACTICE 12/24/15 04/20/23 Troy Avalos MD [address] [place], [place] [phone] PCP - General FAMILY PRACTICE 12/31/24 Stu Shepherd MD [facility] [address] [place] [address] [place] Automotive General Manager CARDIOVASCULAR DISEASE 11/25/16 Kusum Dinero, RN [address] [place] [address] Baseball Inspector And Repairer (Ambulatory) REGISTERED NURSE 03/06/19 05/11/23 documented as of this encounter
--- OUTSIDE RECORDS SUMMARY | 2025-02-04 16:53 | XMS_ITS | Clinical Summary ---
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 Assessment & Plan (07/11/2024 3:11 PM CDT): Voice rest when possible Smoking cessation discussed [place] Smoking Cessation Hotline: 6-407-KBSM-YES 64 ounces of caffeine free and soda free fluid daily Parotid sialadenitis 05/31/2024 Hypotension, unspecified hypotension type 2024 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 Assessment & Plan (02/21/2024 9:01 AM CDT): Discussed Observation versus FNA, versus Surgical removal and decision today was to proceed with Parotidectomy [facility] or [place], [place] Bilateral carotid artery stenosis 10/17/2019 Smoker [...] Description 01/10/2025 9:00 AM CDT Office Visit [facility] Medicine [facility]NT [address] [facility] Medical Office Building [address] [place] [address] Tianna Louie MD Warthin's tumor (Primary Dx); Hyperalgesia; History of superficial parotidectomy 11/23/2024 2:15 PM CDT Office Visit [place] Founder And President at [address] [place] [address] Brooke Stern MD Chronic diastolic [...] = 0.6 oz pur e alcohol) occasional [facility] Utilities Answer Date Recorded In the past 12 months has [place], gas, oil, or water Anomo threatened to shut off services in your home? No 05/28/2024 Social Connection and Isolation Panel Answer Date Recorded In a typical week, how many times do you talk on the phone with family, friends, or neighbors? More than three times a week 05/28/2024 How often do you get togethe r with friends or relatives? Twice a week 05/28/2024 How often do you attend [facility] or [facility] services? 1 to 4 times per year 05/28/2024 Do you belong to any clubs o r organizations such as confucianism groups, unions, fraternal or athletic groups, or [...] any time in the past 12 m [facility], were you homeless or living in a residential (including now)? No 05/28/2024 Personal Safety Answer Date Recorded Have you ever been in or are you currently in a harmful physical or emotional relationship or is someone making you feel afraid or unsafe? Denies 08/22/2024 Comments No Sex and Gender Information Value Date Recorded Sex Assigned at Not on file Legal Sex Female 2:02 PM DIETETICS TEACHER Gender Identity Female 09/20/2023 3:08 PM CDT [...] Read Routine (OP Routine) 05/12/2024 11:38 AM DIETETICS TEACHER Lung nodule SCREENING MAMMOGRAM BILATERAL W SHERMAN Schedule Routine, Read Routine (OP Routine) 05/01/2021 12:28 PM DIETETICS TEACHER Encounter for screening mammogram for malignant neoplasm of breast from Last 3 Months or Most Recently Relevant to Health Maintenance Results * CT Chest WO Contrast F/U Lung Screen Protocol (05/12/2024 11:38 AM DIETETICS TEACHER) Anatomical Region Laterality Modality Chest N/A Computed Tomogra phy 05/14/2024 8:28 AM DIETETICS TEACHER Narrative 05/14/2024 8:34 AM DIETETICS TEACHER EXAM DESCRIPTION: CT CHEST WO CONTRAST F/U [...] Radha Moreau D.O. PS: PS Report ID: [id number] Reading Location: [place] [address] Procedure Note Radha Moreau, DO - 05/14/2024 [...] Radha Moreau D.O. PS: PS Report ID: [id number] Reading Location: [place] [address] Chico Jimenez MD IM CT PROCEDURES Final Result * Screening Mammogram Bilateral W Sherman (05/01/2021 12:28 PM DIETETICS TEACHER) Anatomical Region Laterality Modality Breast Bilateral Mammography 05/01/2021 12:3 5 PM DIETETICS TEACHER Impressions 05/01/2021 12:35 PM DIETETICS TEACHER There is no mammographic evidence of malignancy. A 1 year screening mammogram is recommended. BI-RADS: 1 - Negative. The patient has been or will be contacted. The patient will be entered into a reminder system with a target due date of 1 year for her next mammogram. Electronically signed by: Daniel Magaña M.D. Narrative 05/01/2021 12:35 PM DIETETICS TEACHER EXAMINATION: SCREENING MAMMOGRAM BILATERAL W SHERMAN ORDERING [...] Advance Directives For more information, please contact: [phone] * Full Code (Latest Code Status on File) Date Activated Date Inactivated Comments 05/27/2024 10:47 PM 05/29/2024 8:36 PM * Full Code Date Activated Date Inactivated Comments 02/05/2019 2:39 PM 02/07/2019 9:38 PM Care Teams Silver Service Waiter Relationship Specialty Start Date End Date Troy Avalos MD PCP - General Family Practice 09/20/23
--- OUTSIDE RECORDS SUMMARY | 2025-02-04 16:53 | XMS_ITS | Encounter Summary ---
Author Organization [facility] Address [facility] [place] [address] Care Team Providers Care Sample Room Supervisor Name Role Phone Renato Dale MD Primary Care Provider [phone] Stu Shepherd MD Unavailable [phone] Kusum Dinero RN Unavailable [phone] Troy Avalos MD Primary Care Provider [phone] Encounter Details Date Type Department Care Team (Late st Contact Info) Description 12/11/2021 JustPartst Message Enc [facility] Medical Group Family & Internal Medicine [facility] [address] [place] [address] [place] [address] [place] [address] Question regarding CBC W/DIFF AUTOMATED [...] 02/07/2025 11:00 AM CDT [facility] [place] [facility] [address] [facility] [address], [place] [address] [place] [id number] Jose Correia MD 3 [facility] [address] [place] [id number] documented as of this encounter Goals Goal Patient Goal Type Associated Problems Recent Progress Patient-Stated? Author Reduce Sodium Intake Diet On track(2022 1:41 PM CDT) Kusum Ferrell, RN Note: 03/09/22: Patient continues to watch sodium intake of no more than 2,000 mg sodium diet daily. Establish Regular Follow-Ups with PCP / Cardiology General On track(2022 3:11 PM SLIVER FORMER) Kusum Ferrell, RN Note: 10/06/22: confirmed appointment with on 11/23/22. 08/17/22: Patient will f/u with on 08/24/22 and Human Performance Professor the last week of July. She did not have date available during call. Establish Plan for Symptom Monitoring- HF General On track(2022 3:11 PM SLIVER FORMER) Kusum Ferrell RN Note: Patient will recognize symptoms of CHF and report to physician should they occur. Daily weight. Report weight gain of > 3 lbs overnight or > 5 lbs in a week Maintain 64 oz fluid restriction Call physician if you experience worsening shortness of breath, edema, fatigue, or cough 08/17/22: Scheduled to see Human Performance Professor at the end of July. Patient is on fluid restriction and doesn't go over 64 ounces. SOB with exertion and she plans on discussing with Human Performance Professor at upcoming appointment since this has been going on for a while now. See note for details. Establish Plan for Symptom Monitoring-HTN General On track(2022 3:11 PM SLIVER FORMER) Kusum Ferrell RN Note: Patient will recognize [...] smoking Lifestyle Not on track(2022 3:11 PM SLIVER FORMER) Kusum Ferrell RN Note: 10/06/22: Patient not [...] Rule Out 05/06/2022 05/06/2022 05/06/2022 12:01 PM SLIVER FORMER Assessment Noted Time PHQ-9 Depression Total Score: 0 07/17/19 22 1:33 PM CDT documented as of this encounter Care Teams Sample Room Supervisor Relationship Specialty [place] [address] [place] [address] PCP - General FAMILY PRACTICE 12/24/15 04/20/23 Troy Avalos MD [address] [place] [address] PCP - General FAMILY PRACTICE 12/31/24 Stu Shepherd MD [facility] [address] [place] [address] Tea Human Performance Professor CARDIOVASCULAR DISEASE 11/25/16 Kusum Dinero, RN [address] [place] [address] Director Of Strategic Communications (Ambulatory) REGISTERED NURSE 03/06/19 05/11/23 documented as of this encounter
--- OUTSIDE RECORDS SUMMARY | 2025-02-04 16:53 | XMS_ITS | Encounter Summary ---
Author Organization [facility] Address [facility]ly [facility] [place] [address] Care Team Providers Care Castings Drafter Name Role Phone Renato Dale MD Primary Care Provider [phone] Stu Shepherd MD Unavailable [phone] Kusum Dinero RN Unavailable [phone] Troy Avalos MD Primary Care Provider [phone] Encounter Details Date Type Department Care Team (Late st Contact Info) Description 11/03/2022 Living Map Companyt Message Enc [facility] Medical Group Family & Internal Medicine [facility] [address] [place] [address] [place] [address] [place] [address] Pain Social History Tobacco Use [...] 02/07/2025 11:00 AM CDT Office Visit [facility], [facility] [address] [place] [address] Jose Correia MD 3 [facility] [address] [place], [place] [id number] documented as of this encounter Goals Goal Patient Goal Type Associated Problems Recent Progress Patient-Stated? Author Reduce Sodium Intake Diet On track(2022 1:41 PM CDT) Kusum Ferrell RN Note: 03/09/22: Patient continues to watch sodium intake of no more than 2,000 mg sodium diet daily. Establish Regular Follow-Ups with PCP / Cardiology General On track(2022 3:11 PM QUARTER BACKER) Kusum Ferrell, RN Note: 10/06/22: confirmed appointment with on 11/23/22. 08/17/22: Patient will f/u with on 08/24/22 and Material Handling Technician the last week of July. She did not have date available during call. Establish Plan for Symptom Monitoring- HF General On track(2022 3:11 PM QUARTER BACKER) Kusum Ferrell, RN Note: Patient will recognize symptoms of CHF and report to physician should they occur. Daily weight. Report weight gain of > 3 lbs overnight or > 5 lbs in a week Maintain 64 oz fluid restriction Call physician if you experience worsening shortness of breath, edema, fatigue, or cough 08/17/22: Scheduled to see Material Handling Technician at the end of July. Patient is on fluid restriction and doesn't go over 64 ounces. SOB with exertion and she plans on discussing with Material Handling Technician at upcoming appointment since this has been going on for a while now. See note for details. Establish Plan for Symptom Monitoring-HTN General On track(2022 3:11 PM QUARTER BACKER) Kusum Ferrell RN Note: Patient will recognize [...] smoking Lifestyle Not on track(2022 3:11 PM QUARTER BACKER) No Kusum Dinero RN Note: 10/06/22: Patient not ready at this time. 09/08/22: Patient not ready at this time. 03/09/22: Educated on smoking cessation. Patient declines at this time. Stated she is not ready. Manage anxiety Lifestyle On track(2022 3:11 PM QUARTER BACKER) No Kusum Dinero, RN Note: 10/06/22: Patient taking medication as prescribed. Sets an alarm but sometimes forgets to take lunch time dose. See note for details. documented as of this encounter Visit Diagnoses Not on filedocumented in this encounter Additional Health Concerns Assessment Noted Time PHQ-9 Depression Total Score: 0 07/17/19 22 1:33 PM CDT documented as of this encounter Care Teams Castings Drafter Relationship Specialty [place] [address] [place] [address] PCP - General FAMILY PRACTICE 12/24/15 04/20/23 Troy Avalos MD [address] [place], [place] [phone] PCP - General FAMILY PRACTICE 12/31/24 Stu Shepherd MD [facility]. [facility] [address] [place] [address] [place] Material Handling Technician CARDIOVASCULAR DISEASE 11/25/16 Kusum Dinero, RN [address] [place] [address] Meeting Coordinator (Ambulatory) REGISTERED NURSE 03/06/19 05/11/23 documented as of this encounter
--- OUTSIDE RECORDS SUMMARY | 2025-02-04 16:53 | XMS_ITS | Encounter Summary ---
Author Organization [facility] Address [facility] [place] [address] Care Team Providers Care Country Sales Manager Name Role Phone Renato Dale MD Primary Care Provider [phone] Ifeanyi Nash MD Unavailable Unavailable Stu Shepherd MD Unavailable [phone] Kusum Dinero RN Unavailable [phone] Troy Avalos MD Primary Care Provider [phone] Encounter Details Date Type Department Care Team (Late st Contact Info) Description 12/29/2015 Abstract [facility] [address] [place] [address] Ray Cruz MA Social History [...] 02/07/2025 11:00 AM CDT Office Visit [facility] [address] Jose Correia MD 3 [facility] [address] [place] [id number] documented as of this encounter Procedures Procedure [...] Rule Out 05/06/2022 05/06/2022 05/06/2022 12:01 PM PRODUCTION LINE SOLDERER documented as of this encounter Care Teams Country Sales Manager Relationship Specialty [place] [address] [place] [address] PCP - General FAMILY PRACTICE 12/24/15 04/20/23 Troy Avalos MD [address] [place] [address] PCP - General FAMILY PRACTICE 12/31/24 [place] [address] [place] [address] Papillion Md Urologist CARDIOVASCULAR DISEASE 10/01/15 11/25/16 Stu Shepherd MD Three [facility]. [facility] [address] [place] [address] Ardara Md Urologist CARDIOVASCULAR DISEASE 11/25/16 Kusum Dinero, RN [address] [place] [address] Mail Inserter (Ambulatory) REGISTERED NURSE 03/06/19 05/11/23 documented as of this encounter
--- OUTSIDE RECORDS SUMMARY | 2025-02-04 16:53 | XMS_ITS | Encounter Summary ---
Author Organization [facility] Address [facility] [place] [address] Care Team Providers Care Steaming Machine Operator Name Role Phone Renato Dale MD Primary Care Provider [phone] Stu Shepherd MD Unavailable [phone] Kusum Dinero RN Unavailable [phone] Troy Avalos MD Primary Care Provider [phone] Encounter Details Date Type Department Care Team (Late st Contact Info) Description 12/22/2022 [employer] Message Enc [facility] Medical Group Family & Internal Medicine [facility] [address] [place] [address] [place] [address] [place] [address] Update on ER Social History [...] place to sleep or slept in a fpc (including now)? No 06/15/2022 Education Answer Date [...] 02/07/2025 11:00 AM CDT Office Visit [facility] [facility], [place] [address] [place] [address] Jose Correia MD 3 [facility] [place] [address] [place] [address] documented as of this encounter Goals Goal Patient Goal Type Associated Problems Recent Progress Patient-Stated? Author Reduce Sodium Intake Diet On track(2022 1:41 PM CDT) Kusum Ferrell RN Note: 03/09/22: Patient continues to watch sodium intake of no more than 2,000 mg sodium diet daily. Establish Regular Follow-Ups with PCP / Cardiology General On track(2022 3:11 PM SERGING MACHINE OPERATOR) Kusum Ferrell, RN Note: 10/06/22: confirmed appointment with on 11/23/22. 08/17/22: Patient will f/u with on 08/24/22 and Top Steep Tender the last week of July. She did not have date available during call. Establish Plan for Symptom Monitoring- HF General On track(2022 3:11 PM SERGING MACHINE OPERATOR) Kusum Ferrell, RN Note: Patient will recognize symptoms of CHF and report to physician should they occur. Daily weight. Report weight gain of > 3 lbs overnight or > 5 lbs in a week Maintain 64 oz fluid restriction Call physician if you experience worsening shortness of breath, edema, fatigue, or cough 08/17/22: Scheduled to see Top Steep Tender at the end of July. Patient is on fluid restriction and doesn't go over 64 ounces. SOB with exertion and she plans on discussing with Top Steep Tender at upcoming appointment since this has been going on for a while now. See note for details. Establish Plan for Symptom Monitoring-HTN General On track(2022 3:11 PM SERGING MACHINE OPERATOR) Kusum Ferrell RN Note: Patient [...] smoking Lifestyle Not on track(2022 3:11 PM SERGING MACHINE OPERATOR) No Kusum Dinero RN Note: 10/06/22: Patient not ready at this time. 09/08/22: Patient not ready at this time. 03/09/22: Educated on smoking cessation. Patient declines at this time. Stated she is not ready. Manage anxiety Lifestyle On track(2022 3:11 PM SERGING MACHINE OPERATOR) No Kusum Dinero, RN Note: 10/06/22: Patient taking medication as prescribed. Sets an alarm but sometimes forgets to take lunch time dose. See note for details. documented as of this encounter Visit Diagnoses Not on filedocumented in this encounter Additional Health Concerns Assessment Noted Time PHQ-9 Depression Total Score: 0 07/17/19 22 1:33 PM CDT documented as of this encounter Care Teams Steaming Machine Operator Relationship Specialty [place] [address] [place] [address] PCP - General FAMILY PRACTICE 12/24/15 04/20/23 Troy Avalos MD [address] [place], [place] [phone] PCP - General FAMILY PRACTICE 12/31/24 Stu Shepherd MD [facility] [address] [place], [place] [phone] [place] Top Steep Tender CARDIOVASCULAR DISEASE 11/25/16 Kusum Dinero, RN [address] [place] [address] Organ Fixer (Ambulatory) REGISTERED NURSE 03/06/19 05/11/23 documented as of this encounter
== END 2025-02-04 18:46 | disposition home or self-care (01) ==
PROVIDERS: Emergency Medicine; Nurse Practitioner Family; Emergency Provider Family Medicine; PCP Family Medicine
DX: I95.1 Orthostatic hypotension (principal); I50.9 Heart failure, unspecified; E11.9 Type 2 diabetes mellitus without complications; J44.9 Chronic obstructive pulmonary disease, unspecified; K21.9 Gastro-esophageal reflux disease without esophagitis; M19.90 Unspecified osteoarthritis, unspecified site; F41.9 Anxiety disorder, unspecified; F17.210 Nicotine dependence, cigarettes, uncomplicated; Z79.85 Long-term (current) use of injectable non-insulin antidiabetic drugs; Z79.899 Other long term (current) drug therapy; Z79.84 Long term (current) use of oral hypoglycemic drugs; Z79.01 Long term (current) use of anticoagulants
CPT/HCPCS: 36415; 80053; 81001; 83735; 84443; 84484; 85025; 87086; 93005; 96360; 99283; J7030

== ENCOUNTER 2025-02-20 10:57 | Outpatient (CLI) | payer MEDICARE, MEDICAID, SELFPAY ==
--- NOTE | ~2025-02-20 | XR_ITS ---
XR hip RT min 2V 02/20/2025 11:35 Indication: Right hip Procedure: 2 views right hip Comparison: No prior studies for comparison. Findings: There is mild-moderate osteoarthritis of the right hip. No soft tissue abnormality. No foreign bodies. Impression: 1: Mild-moderate osteoarthritis of the right hip. Reviewed, dictated and finalized at location O. Impression: 1: Mild-moderate osteoarthritis of the right hip.
--- NOTE | ~2025-02-20 | XR_ITS ---
XR lumbar spine 2-3V 02/20/2025 11:35 Indication: Back pain Procedure: 3 views lumbar spine Comparison: 10/17/2023 Findings: There is dextroscoliosis. There is disc narrowing at all lumbar levels. There is facet hypertrophy at L3-4, L4-5 and L5-S1. There is degenerative grade 1 spondylolisthesis at L4-5. No fracture or traumatic malalignment. There is atherosclerosis. Impression: 1: Severe lumbar spondylosis with dextroscoliosis. Reviewed, dictated and finalized at location O. Impression: 1: Severe lumbar spondylosis with dextroscoliosis.
--- OUTSIDE RECORDS SUMMARY | 2025-02-20 14:14 | XMS_ITS | Clinical Summary ---
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 Assessment & Plan (07/11/2024 3:11 PM CDT): Voice rest when possible Smoking cessation discussed [place] Smoking Cessation Hotline: 2-000-AJXS-YES 64 ounces of caffeine free and soda free fluid daily Parotid sialadenitis 05/31/2024 Hypotension, unspecified hypotension type 2024 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 Assessment & Plan (02/21/2024 9:01 AM CDT): Discussed Observation versus FNA, versus Surgical removal and decision today was to proceed with Parotidectomy [facility]NT or [place], [place] Bilateral carotid artery stenosis 10/17/2019 Smoker [...] Encounters Date Type Department Care Team Description 02/10/2025 1:47 PM CDT - 02/10/2025 3:06 PM CDT [facility] Emergency Department [address] [place] [address] Chronic pain of right knee (Primary Dx); Enthesopathy of knee Discharge Disposition: Discharge to home or self care 01/10/2025 9:00 AM CDT [facility] [address] [facility] [address] [place] [address] Tianna Luoie MD Warthin's tumor (Primary Dx); Hyperalgesia; History of superficial parotidectomy 11/23/2024 2:15 PM CDT Office Visit [facility] at [address] [place] [address] Brooke Stern MD Chronic diastolic [...] SKIN BIOPSY Right right leg lymphoma removed; 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 EYE SURGERY Bilateral laser eye surgery for high pressure; unknown date TUBAL LIGATION 05/02/1984 - 05/01/1985 KNEE ARTHROSCOPY W/ MENISCECTOMY Left x2; early 1999s CARPAL TUNNEL RELEASE Bilateral 2010s Medical History Medical History Date Comments Hypertension DVT (deep venous thrombosis) Cancer (HCC) skin ca removed , uterine cells removed Smoking Peptic ulceration Gastric reflux Clotting disorder GERD (gastroesophageal reflux disease) 2010 Sleep apnea 2013 Diabetes mellitus 2023 Family History Medical History [...] f : Cancer Heart disease Maternal Grandmother Janei COPD Mother Bernarda Cancer Mother Bernarda Hypertension [...] Father Fred (Age 54) Maternal Grandmother Janie Mother Bernarda Other 1 Family Hx Alive Other 2 [...] = 0.6 oz pur e alcohol) occasional [facility] Utilities Answer Date Recorded In the past 12 months has th e electric, gas, oil, or water company threatened to shut off services in your home? No 05/28/2024 Social Connection and Isolation Panel Answer Date Recorded In a typical week, how many times do you talk on the phone with family, friends, or neighbors? More than three times a week 05/28/2024 How often do you get togethe r with friends or relatives? Twice a week 05/28/2024 How often do you attend [facility] or anabaptism services? 1 to 4 times per year 05/28/2024 Do you belong to any clubs o r organizations such as sikhism groups, unions, fraternal or athletic groups, or [...] the money to buy more. Never true 05/28/19 25 Within the past 12 months, t [...] any time in the [facility], were you homeless or living in a detention (including now)? No 05/28/2024 Personal Safety Answer Date Recorded Have you ever been in or are you currently in a harmful physical or emotional relationship or is someone making you feel afraid or unsafe? Denies 02/10/2025 Comments No Sex and Gender Information Value Date Recorded Sex Assigned at Not on file Legal Sex Female 2:02 PM FITTINGS FINISHER Gender Identity Female 09/20/2023 3:08 PM CDT Sexual Orientation Straight 09/20/2023 3: 08 PM CDT Obstetrics History Para Term AB IAB SAB Ectopic Multiple Livin g Live Births 2 2 2 Date Outcome GA Total Labor Labor/2nd/3rd Weight Sex Type Anes PTL Sravanthi A1 A5 Name Clin Term Term Last Filed Vital Signs Vital Sign Reading Time Taken Comments Blood Pressure 94/58 02/10/2025 12:56 PM CDT Pulse 78 02/10/2025 12:56 PM CDT Temperature 36.4 C (97.6 F) 02/10/2025 12:56 PM CDT Respiratory Rate 18 02/10/2025 12:56 PM CDT Oxygen Saturation 97% 02/10/2025 12:56 PM CDT Inhaled Oxygen Concentration - - Weight 69.4 kg (153 lb) 02/10/2025 12:56 PM CDT Height 160 cm (5' 3) 02/10/2025 12:56 PM CDT Body Mass Index 27.1 02/10/2025 12:56 PM CDT Plan of Treatment Health Maintenance Due Date Last Done Comments Cervical Cancer Screening 1962 Colon Cancer Screening-Colonoscopy 1962 Hepatitis C Screening 1962 DTaP/Tdap/Td Vaccine (1 - Tdap) 1973 Hepatitis B Screening 02/03/1980 Regular Well Visit/Exam 18-64 02/03/1980 Pneumococcal vaccine <65 (1 of 2 - PCV) 1981 Depression Screening 02/06/2020 02/05/2019 Breast Cancer Screening-Mammogram 05/01/2022 05/01/2021, 06/29/2019, 01/07/2016 Covid-19 Vaccine (3 - 2024-2 6 season) 2024 08/25/2020, 07/28/2020 Influenza Vaccine (#1) 2024 , 03/17/2020, 03/03/2015, Additional history exists Lung Cancer Screening 05/13/2025 05/12/2024 , 10/15/2023, 09/06/2022 Zoster Vaccine Completed 04/18/2024, 04/11/2023 Procedures Procedure Name Priority Date/Time Associated Diagnosis Comments CT KNEE RIGHT WO CONTRAST ED 02/10/2025 2:22 PM CDT XR KNEE RIGHT 4 OR MORE VIEWS ED 02/10/2025 1:[address] CHEST WO CONTRAST F/U LUNG SCREEN PROTOCOL Schedule Routine, Read Routine (OP Routine) 05/12/2024 11:38 AM FITTINGS FINISHER Lung nodule SCREENING MAMMOGRAM BILATERAL W SHERMAN Schedule Routine, Read Routine (OP Routine) 05/01/2021 12:28 PM FITTINGS FINISHER Encounter for screening mammogram for malignant neoplasm of breast from Last 3 Months or Most Recently Relevant to Health Maintenance Results * CT Knee Right WO Contrast (02/10/2025 2:22 PM CDT) Anatomical Region Laterality Modality Lower Extremities Right Computed Tomog saúl 02/10/2025 2:23 PM CDT Narrative 02/10/2025 2:26 PM CDT EXAM DESCRIPTION: CT KNEE RIGHT WO CONTRAST REASON FOR STUDY: Chronic right knee pain, abnormal appearance of tibial spine on x-ray Pt to the ED with c/o right knee pain for the last for days. Denies fall or injury Xray report suggested a CT for further eval TECHNIQUE: Multidetector CT scan of the right knee was performed. coronal and sagittal images were reconstructed. Dose modulation adjustment of the mA and/or kV has been performed per [facility] protocols according to patient size and indication. COMPARISON: None. FINDINGS: The distal femur, proximal tibia, proximal fibula and patella appear intact. No acute fracture is seen. The relative area of lucency projected over the tibial metaphysis on the frontal view is likely related to overlapping clothing or soft tissue artifact. Minimal superior pole patellar enthesopathy. No aggressive osseous lesion. No acute soft tissue abnormality. IMPRESSION: 1. No evidence of an acute osseous abnormality of the right knee. 2. Minimal superior pole patellar enthesopathy. THIS IS AN ELECTRONICALLY VERIFIED FINAL REPORT 02/10/2025 2:26 PM - Electronically signed by Don Batres M.D. CH: Report ID: [id number] Reading Location: [id number] Procedure Note Don Batres MD - 02/10/2025 EXAM DESCRIPTION: CT KNEE RIGHT WO CONTRAST REASON FOR STUDY: Chronic right knee pain, abnormal appearance of tibial spine on x-ray Pt to the ED with c/o right knee pain for the last for days. Denies fallor injury Xray report suggested a CT for further eval TECHNIQUE: Multidetector CT scan of the right knee was performed. coronal and sagittal images were reconstructed. Dose modulation adjustment of the mA and/or kV has been performed per [facility] protocols according to patient size and indication. COMPARISON: None. FINDINGS: The distal femur, proximal tibia, proximal fibula and patella appearintact. No acute fracture is seen. The relative area of lucency projected overthe tibial metaphysis on the frontal view is likely related to overlapping clothing or soft tissue artifact. Minimal superior pole patellar enthesopathy. No aggressive osseous lesion. No acute soft tissue abnormality. IMPRESSION: 1. No evidence of an acute osseous abnormality of the right knee. 2. Minimal superior pole patellar enthesopathy. THIS IS AN ELECTRONICALLY VERIFIED FINAL REPORT 02/10/2025 2:26 PM - Electronically signed by Don Batres M.D. CH: JUANI Report ID: [id number] Reading Location: [id number] Lew [facility]IR[facility] IMG CT PROCEDURES Final Re sult * XR Knee Right 4 or More Views (02/10/2025 1:05 PM CDT) Anatomical Region Laterality Modality Lower Extremities, Knee Right Computed Radiography 02/10/2025 1:26 PM CDT Narrative 02/10/2025 1:30 PM CDT EXAM DESCRIPTION: XR KNEE RIGHT 4 OR MORE VIEWS REASON FOR STUDY: Anterior/patellar pain, no trauma Pt to the ED with c/o right knee pain for the last for days. Denies fall or injury TECHNIQUE: For radiographic view(s) of the right knee . COMPARISON: None FINDINGS: BONES/JOINTS: Suspected fracture tibial spine. CT could be obtained for further characterization. The joint spaces are normal. SOFT TISSUES: Within normal limits. IMPRESSION: 1. Suspected fracture tibial spine. CT could be obtained for further characterization. THIS IS AN ELECTRONICALLY VERIFIED FINAL REPORT 02/10/2025 1:30 PM - Electronically signed by Valdo Junior M.D. JA: REKHA Report ID: [id number] Reading Location: [id number] Procedure Note Valdo Junior MD - 02/10/2025 EXAM DESCRIPTION: XR KNEE RIGHT 4 OR MORE VIEWS REASON FOR STUDY: Anterior/patellar pain, no trauma Pt to the ED with c/o right knee pain for the last for days. Denies fallor injury TECHNIQUE: For radiographic view(s) of the right knee . COMPARISON: None FINDINGS: BONES/JOINTS: Suspected fracture tibial spine. CT could be obtained for further characterization. The joint spaces are normal. SOFT TISSUES: Within normal limits. IMPRESSION: 1. Suspected fracture tibial spine. CT could be obtained for further characterization. THIS IS AN ELECTRONICALLY VERIFIED FINAL REPORT 02/10/2025 1:30 PM - Electronically signed by Vlado Junior M.D. JA: REKHA Report ID: [id number] Reading Location: [place] [address] Lew BIR[facility] IMG XR PROCEDURES Final Re sult * CT Chest WO Contrast F/U Lung Screen Protocol (05/12/2024 11:38 AM FITTINGS FINISHER) Anatomical Region Laterality Modality Chest N/A Computed Tomogra phy 05/14/2024 8:28 AM FITTINGS FINISHER Narrative 05/14/2024 8:34 AM FITTINGS FINISHER EXAM DESCRIPTION: CT CHEST WO CONTRAST F/U [...] Radha Moreau D.O. PS: PS Report ID: [id number] Reading Location: [id number] Procedure Note Prieto Radha Maximino, DO - 05/14/2024 EXAM DESCRIPTION: CT CHEST [...] Radha Moreau D.O. PS: PS Report ID: [id number] Reading Location: [place] [address] [place] Jimenez MD [facility] PROCEDURES Final Result * Screening Mammogram Bilateral W Sherman (05/01/2021 12:28 PM FITTINGS FINISHER) Anatomical Region Laterality Modality Breast Bilateral Mammography 05/01/2021 12:3 5 PM FITTINGS FINISHER Impressions 05/01/2021 12:35 PM FITTINGS FINISHER There is no mammographic evidence of malignancy. A 1 year screening mammogram is recommended. BI-RADS: 1 - Negative. The patient has been or will be contacted. The patient will be entered into a reminder system with a target due date of 1 year for her next mammogram. Electronically signed by: Daniel Magaña M.D. Narrative 05/01/2021 12:35 PM FITTINGS FINISHER EXAMINATION: SCREENING MAMMOGRAM BILATERAL W SHERMAN ORDERING [...] Most Recently Relevant to Health Maintenance Insurance IDMO Member Subscriber Plan / Payer (Ef fective 2018-Present) Name:Sandra Saldivar Relation to Subscriber:Self Name:Sandra Saldivar Payer ID:[id number] Group ID:Not on file Type:[place]ICAID [place] Address: [address] IDPA IDMO IDPA [facility] MEDICARE ADVANTAGE HUMANA CHOICE MEDICARE PPO IDPA Advance Directives For more information, please contact: [phone] * Full Code (Latest Code Status on File) Date Activated Date Inactivated Comments 05/27/2024 10:47 PM 05/29/2024 8:36 PM * Full Code Date Activated Date Inactivated Comments 02/05/2019 2:39 PM 02/07/2019 9:38 PM Care Teams Boilerhouse Mechanic Relationship Specialty Start Date End Date Troy Avalos MD PCP - General Family Practice 09/20/23
--- OUTSIDE RECORDS SUMMARY | 2025-02-20 14:14 | XMS_ITS | Clinical Summary ---
Author Organization [facility] Address [address] [facility] [address] [place] [address] Phone Care Team Providers Care Handstitching Machine Armhole Feller Name Role Phone Anoop Salcedo MD Unavailable Troy Avalos MD Primary Care Provider [phone] Allergies Active Allergy Reactions Criticality Noted Date [...] Comments Blood Pressure 128/72 05/31/2023 2:14 PM TENNIS RACKET REPAIRER Pulse 77 05/31/2023 2:14 PM TENNIS RACKET REPAIRER Temperature 35.7 C (96.3 F) 05/31/2023 2:14 PM TENNIS RACKET REPAIRER Respiratory Rate 16 05/31/2023 2:14 PM TENNIS RACKET REPAIRER Oxygen Saturation 95% 05/31/2023 2:14 PM TENNIS RACKET REPAIRER Inhaled Oxygen Concentration - - Weight 109.3 kg (240 lb 14.4 oz) 05/31/2023 2:14 PM TENNIS RACKET REPAIRER Height 167.6 cm (5' 6) 05/31/2023 2:14 PM TENNIS RACKET REPAIRER Body Mass Index 38.88 05/31/2023 2:14 PM TENNIS RACKET REPAIRER Plan of Treatment Health Maintenance Due Date [...] MEDICAID [place] MEDICARE C HUMANA Care Teams Handstitching Machine Armhole Feller Relationship Specialty Start Date End Date Troy Avalos MD [address] [place] [address] PCP - General Family Medicine 05/31/23 Anoop Salcedo MD [address] [place] [address] Consulting Physician Pulmonary Disease 12/31/21
== END 2025-02-20 10:58 | disposition home or self-care (01) ==
PROVIDERS: PCP Family Medicine; Visit Provider Family Medicine
DX: M16.11 Unilateral primary osteoarthritis, right hip (principal); M43.06 Spondylolysis, lumbar region; M41.86 Other forms of scoliosis, lumbar region; G89.29 Other chronic pain
CPT/HCPCS: 72100; 73502

== ENCOUNTER 2025-04-02 11:54 | Outpatient (CLI) | payer MEDICARE, MEDICAID, SELFPAY ==
[2025-04-02 12:23] LABS: Cholesterol 133 mg/dL (0-200); HDL Direct 51 mg/dL; Triglycerides 91 mg/dL (<150)
--- OUTSIDE RECORDS SUMMARY | 2025-04-02 12:49 | XMS_ITS | Clinical Summary ---
Author Organization [facility] Address [address] [place] [address] Care Team Providers Care Opticianry Teacher Name Role Phone Troy Avalos MD Primary Care Provider [phone] Allergies Active Allergy Reactions Criticality Noted Date Comments Hkxeaws-Ptz-Fqw Reductase Inhibitors Other (See comments) Low 11/14/2020 [...] a day 180 capsule 01/11/20 25 Active Active Problems Problem Noted Date Diagnosed Date On continuous oral anticoagulation 11/23/2024 LORETTA (obstructive sleep apnea) 10/25/2024 Dysphonia 07/11/2024 Assessment & Plan (07/11/2024 3:11 PM CDT): Voice rest when possible Smoking cessation discussed [place] Smoking Cessation Hotline: 3-091-AOFQ-YES 64 ounces of caffeine free and soda free fluid daily 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 Assessment & Plan (07/11/2024 3:11 PM CDT): Voice rest when possible Smoking cessation discussed [place] Smoking Cessation Hotline: 4-962-KXXE-YES 64 ounces of caffeine free and soda free fluid daily Parotid sialadenitis 05/31/2024 Hypotension, unspecified hypotension type 2024 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 Assessment & Plan (02/21/2024 9:01 AM CDT): Discussed Observation versus FNA, versus Surgical removal and decision today was to proceed with Parotidectomy [facility] E[facility] or [place], [place] Bilateral carotid artery stenosis 10/17/2019 Smoker [...] CDT - 02/10/2025 3:06 PM CDT Emergency [facility] Emergency Department [address] [place] [address] Chronic pain of right knee (Primary Dx); Enthesopathy of knee Discharge Disposition: Discharge to home or self care 01/10/2025 9:00 AM CDT Office Visit [facility]) - [facility] Medicine ENT [address] [facility] Medical Office Building [address] [place] [address] Tianna Louie MD Warthin's tumor (Primary Dx); Hyperalgesia; History of superficial parotidectomy from Last 3 Months Immunizations Immunization Administration [...] Left x2; early CARPAL TUNNEL RELEASE Bilateral 2010 Medical History Medical History Date Comments Hypertension [...] Date Smoking Tobacco: Every Day Cigarettes 1 41.9 Started: 1983 Passive Smoke Exposure: Past Smokeless Tobacco: Never Tobacco Cessation:Ready to Q uit: Not Asked; Counseling Given: Not Answered Alcohol Use Standard Drinks/Week Comments Yes 0 (1 standard drink = 0.6 oz pur e alcohol) occasional [facility] Utilities Answer Date Recorded In the past [...] week 05/28/2024 How often do you attend [facility] or gnosticist services? 1 to 4 times per year 05/28/2024 Do you belong to any clubs o r organizations such as spiritism groups, unions, fraternal or athletic groups, or [...] any time in the past 12 m [facility], were you homeless or living in a alf (including now)? No 05/28/2024 Personal Safety Answer Date Recorded Have you ever been in or are you currently in a harmful physical or emotional relationship or is someone making you feel afraid or unsafe? Denies 02/10/2025 Comments No Sex and Gender Information Value Date Recorded Sex Assigned at Not on file Legal Sex Female 2:02 PM STORAGE BATTERY INSPECTOR Gender Identity Female 09/20/2023 3:08 PM CDT [...] Read Routine (OP Routine) 05/12/2024 11:38 AM STORAGE BATTERY INSPECTOR Lung nodule SCREENING MAMMOGRAM BILATERAL W SHERMAN Schedule Routine, Read Routine (OP Routine) 05/01/2021 12:28 PM STORAGE BATTERY INSPECTOR Encounter for screening mammogram for malignant neoplasm [...] by Don Batres M.D. CH: Report ID: [id number] Reading Location: [place] [address] Procedure Note Don Batres MD - 02/10/2025 [...] by Don Batres M.D. CH: Report ID: [id number] Reading Location: [id number] Lew BIR[facility] IMG CT PROCEDURES Final Re [...] Valdo Junior M.D. JA: REKHA Report ID: [id number] Reading Location: [id number] Procedure Note Valdo Junior MD - 02/10/2025 [...] Valdo Junior M.D. JA: REKHA Report ID: [id number] Reading Location: [id number] Lew [facility] IMG XR PROCEDURES Final Re sult * CT Chest WO Contrast F/U Lung Screen Protocol (05/12/2024 11:38 AM STORAGE BATTERY INSPECTOR) Anatomical Region Laterality Modality Chest N/A Computed Tomogra phy 05/14/2024 8:28 AM STORAGE BATTERY INSPECTOR Narrative 05/14/2024 8:34 AM STORAGE BATTERY INSPECTOR EXAM DESCRIPTION: CT CHEST WO CONTRAST F/U [...] Radha Moreau D.O. PS: PS Report ID: [id number] Reading Location: [id number] Procedure Note Radha Moreau, DO - 05/14/2024 [...] Radha Moreau D.O. PS: PS Report ID: [id number] Reading Location: [id number] [place] Jimenez MD IMG CT PROCEDURES Final Result * Screening Mammogram Bilateral W Sherman (05/01/2021 12:28 PM STORAGE BATTERY INSPECTOR) Anatomical Region Laterality Modality Breast Bilateral Mammography 05/01/2021 12:3 5 PM STORAGE BATTERY INSPECTOR Impressions 05/01/2021 12:35 PM STORAGE BATTERY INSPECTOR There is no mammographic evidence of malignancy. A 1 year screening mammogram is recommended. BI-RADS: 1 - Negative. The patient has been or will be contacted. The patient will be entered into a reminder system with a target due date of 1 year for her next mammogram. Electronically signed by: Daniel Maagña M.D. Narrative 05/01/2021 12:35 PM STORAGE BATTERY INSPECTOR EXAMINATION: SCREENING MAMMOGRAM BILATERAL W SHERMAN ORDERING [...] There has been no suspicious interval change. Self Screening Mammogram IMG MAMMO PROCEDURES Fi nal Result from Last 3 Months or Most Recently Relevant to Health Maintenance Insurance IDPA IDDC IDDC IDPA [facility] MEDICARE ADVANTAGE [employer] CHOICE MEDICARE PPO IDPA Advance Directives For more information, please contact: [phone] * Full Code (Latest Code Status on File) Date Activated Date Inactivated Comments 05/27/2024 10:47 PM 05/29/2024 8:36 PM * Full Code Date Activated Date Inactivated Comments 02/05/2019 2:39 PM 02/07/2019 9:38 PM Care Teams Opticianry Teacher Relationship Specialty Start Date End Date Troy Avalos MD PCP - General Family Practice 09/20/23
--- OUTSIDE RECORDS SUMMARY | 2025-04-02 12:49 | XMS_ITS | Clinical Summary ---
Author Organization [facility] Address [address] [facility], [address] [address] Phone Care Team Providers Care Nurses Director Name Role Phone Anoop Salcedo MD Unavailable Troy Avalos MD Primary Care Provider [phone] Allergies Active Allergy Reactions Criticality Noted Date [...] Comments Blood Pressure 128/72 05/31/2023 2:14 PM ELIGIBILITY SUPERVISOR Pulse 77 05/31/2023 2:14 PM ELIGIBILITY SUPERVISOR Temperature 35.7 C (96.3 F) 05/31/2023 2:14 PM ELIGIBILITY SUPERVISOR Respiratory Rate 16 05/31/2023 2:14 PM ELIGIBILITY SUPERVISOR Oxygen Saturation 95% 05/31/2023 2:14 PM ELIGIBILITY SUPERVISOR Inhaled Oxygen Concentration - - Weight 109.3 kg (240 lb 14.4 oz) 05/31/2023 2:14 PM ELIGIBILITY SUPERVISOR Height 167.6 cm (5' 6) 05/31/2023 2:14 PM ELIGIBILITY SUPERVISOR Body Mass Index 38.88 05/31/2023 2:14 PM ELIGIBILITY SUPERVISOR Plan of Treatment Health Maintenance Due Date Last Done Comments Hepatitis C Virus (HCV) Screening 1962 TdaP Immunization 1962 Pneumococcal Immunization (50+ years) (1 of 2 - PCV) 1981 Pap Smear 1983 Cervical Cancer Screening (CCS) 02/03/1992 HPV/Cotest 02/03/1992 Cologuard 2007 Immunochemical Fecal Occult Blood 2007 Respiratory Syncytial Virus (RSV) Immunization (Adult) (1 - Risk 50-74 years 1-dose series) 02/03/2012 Zoster Immunization (1 of 2) 02/03/2012 Medicare Initial AWV [id number] 09/30/2013 Mammogram 05/01/2022 05/01/2021, 06/29/2019 Influenza Immunization (#1) 2024 10/2 06/2022, 03/17/2020, 03/03/2015, Additional history exists SARS-COV-2 Immunization [...] MEDICAID [place] MEDICARE C HUMANA Care Teams Nurses Director Relationship Specialty Start Date End Date Troy Avalos MD [address] [place] [address] PCP - General Family Medicine 05/31/23 Anoop Salcedo MD [address] [place] [address] Consulting Physician Pulmonary Disease 12/31/21
[2025-04-02 13:16] LABS: Add Urine Microscopic? YES; Appearance Urine Clear (Clear); Glucose Urine UA Negative (Negative); Leukocyte Esterase Ur 2+ LEU/UL (Negative); Nitrate Urine Negative (Negative); Non Pathogenic Casts 0-2; Specific Grav Ur 1.019 (1.001-1.035)
== END 2025-04-02 11:55 | disposition home or self-care (01) ==
PROVIDERS: PCP Family Medicine; Visit Provider Family Medicine
DX: N39.0 Urinary tract infection, site not specified (principal); E11.9 Type 2 diabetes mellitus without complications
CPT/HCPCS: 36415; 80061; 81001; 87086